=== PATIENT | male | born 1965 | race Caucasian/White ===

== ENCOUNTER 2018-03-26 18:43 | Inpatient (IN) | payer OTHER ==
[~2018-03-26] VITALS: Ht 177.8 cm; Wt 84.9 kg
[~2018-03-26 18:43] MED LIST: ADDERALL 20 MG20 MG; ADDERALL 20 MG20 MG PO; DIAZEPAM10 MG; DITROPAN XL5 MG PO; FOLIC ACID1 MG PO; HUMIRA40 MG/0.8 SQ; LEVAQUIN500 MG PO; METHOTREXATE 1 G1 GM INJ; METHOTREXATE2.5 MG; METOPROLOL TART50 MG PO; MIRALAX17 GM PO; TEMAZEPAM15 MG PO; TEMAZEPAM30 MG; TYLENOL WITH C1 EACH PO; VALIUM10 MG PO; VICODIN ES 7.51 EACH PO; VIVANCE PO; VYVANSE60 MG PO
--- NOTE | 2018-03-26 20:11 | Diagnostic Imaging Report ---
EXAM: CT Abdomen and Pelvis WITH contrast INDICATION: Left flank pain COMPARISON: 05/20/2016 TECHNIQUE: Abdomen and pelvis were scanned utilizing a multidetector helical scanner from the lung base to the pubic symphysis after administration of IV contrast. Coronal and sagittal reformations were obtained. Routine protocol is performed. IV CONTRAST: None. ORAL CONTRAST: Water RADIATION DOSE: Total DLP: 455.72 mGy*cm Estimated effective dose: (DLP x 0.015 x size factor) mSv COMPLICATIONS: None FINDINGS: LINES and TUBES: None. LOWER THORAX: Unremarkable HEPATOBILIARY: No focal hepatic lesions. No biliary ductal dilation. GALLBLADDER: No radio-opaque stones or sludge. No wall thickening. SPLEEN: No splenomegaly. PANCREAS: No focal masses or ductal dilatation. ADRENALS: No adrenal nodules KIDNEYS/URETERS: There is a 5 mm stone in the left proximal ureter with mild left hydronephrosis and hydroureter. Left perinephric stranding may be due to obstruction. Multiple additional nonobstructing stones are seen in both kidneys measuring up to about 6 mm. No stones in the right ureter. No cystic or solid mass lesions. GI TRACT: No abnormal distention, wall thickening, or evidence of bowel obstruction. Postsurgical changes in the distal rectum. Appendix is normal. PELVIC ORGANS/BLADDER: Unremarkable. LYMPH NODES: No lymphadenopathy. VESSELS: There is mild atherosclerotic disease in the aorta and major arterial branches. PERITONEUM / RETROPERITONEUM: No free air or fluid. BONES: Unremarkable. SOFT TISSUES: Unremarkable. IMPRESSION: 5 mm stone in the left proximal ureter with mild left hydronephrosis and hydroureter. Blake Anthony MD Signed by: Dr. Blake Anthony M.D. on 03/26/2018 8:07 PM
[2018-03-26] MEDS ORDERED: KETOROLAC TROMETHAMINE 30 MG/ML VIAL IV STA (21:40)
[2018-03-26] MEDS ORDERED: HYDROMORPHONE 1MG/1ML INJ IV STA (21:43)
[2018-03-26] MEDS ORDERED: ONDANSETRON HCL 4 MG ORAL DISINTEGRATING TAB PO ONE ×2 (21:45→22:00)
[2018-03-26 22:00] LABS: BASOPHILS % 0.4 % (0.0-1.0); EOSINOPHILS # (AUTO) 0.1 (0.0-0.4); EOSINOPHILS % 0.6 % (0.0-6.0); HEMATOCRIT 44.2 % (38.2-49.6); HEMOGLOBIN 15.4 g/dL (14.0-18.0); LYMPHOCYTES # (AUTO) 1.9 (1.0-3.2); LYMPHOCYTES % 18.8 % (18.0-39.1); MEAN CORPUSCULAR HEMOGLOBIN 32.9 pg (28-32); MEAN CORPUSCULAR HGB CONC 34.8 g/dL (31-35); MEAN CORPUSCULAR VOLUME 94.4 fL (81-99); MONOCYTES # (AUTO) 0.8 (0.2-0.8); MONOCYTES % 8.2 % (4.4-11.3); NEUTROPHILS # (AUTO) 7.2 (2.1-6.9); NEUTROPHILS % 71.4 % (38.7-80.0); PLATELET COUNT 217 x10e3/uL (140-360); RED BLOOD COUNT 4.68 x10e6/uL (4.3-5.7); RED CELL DISTRIBUTION WIDTH 13.1 % (11.7-14.4)
[2018-03-26] MEDS ORDERED: KETOROLAC TROMETHAMINE 30 MG/ML VIAL IV ONE (22:00)
[2018-03-26] MEDS ORDERED: HYDROMORPHONE 2MG/ML INJ IV ONE (22:00)
[2018-03-26 22:19] LABS: ALBUMIN 4.1 g/dL (3.5-5.0); ALBUMIN/GLOBULIN RATIO 1.5 (0.8-2.0); ANION GAP 14.6 mmol/L (8-16); CALCIUM 9.1 mg/dL (8.4-10.2); CREATININE, SERUM 1.63 mg/dL (0.72-1.25); POTASSIUM 4.6 mmol/L (3.5-5.1)
[2018-03-26] MEDS ORDERED: CEFTRIAXONE SOD 1 GM VIAL IV STA (22:57)
[2018-03-26] MEDS ORDERED: HYDROMORPHONE 1MG/1ML INJ IV PRN (23:00)
[2018-03-26] MEDS: CEFTRIAXONE SOD 1 GM VIAL IV SCH (23:22)
--- OUTSIDE RECORDS SUMMARY | 2018-03-26 23:34 | XMS REPORT ---
Author [facility] Address Unknown Phone Unavailable Care Team Providers Care [employer] Opt[employer] Technician Name Role Phone VAHID CHRIS Unavailable Unavailable Problems This patient has no known problems. Allergies, Adverse Reactions, Alerts This patient has no known allergies or adverse reactions. Medications This patient has no known medications. Results Test Description Test Time Test Comments Text Results Atomic Results Result Comments CT ABDOMEN/PELVIS WO [place] [address] Patient Name: BONIFACIO GREEN MR #: [id number] : 1965 Age/Sex: 52/M Req #: [id number] Adm Physician: Ordered by: BRYANNA GREER MD Report #: [id number] Location: ER Room/Bed: ___ Procedure: [id number] CT/CT ABDOMEN/PELVIS WO Exam Date: 03/26/18 Exam Time: 1919 REPORT STATUS: Signed EXAM: CT Abdomen and Pelvis WITH contrast INDICATION: Left flank pain COMPARISON: TECHNIQUE: Abdomen and pelvis were scanned utilizing a multidetector helical scanner from the lung base to the pubic symphysis after administration of IV contrast. Coronal and sagittal reformations were obtained. Routine protocol is performed. IV CONTRAST: None. ORAL CONTRAST: Water RADIATION DOSE: Total DLP: 455.72 mGy*cm Estimated effective dose: (DLP x 0.015 x size factor) mSv COMPLICATIONS: None FINDINGS: LINES and TUBES: None. LOWER THORAX: Unremarkable HEPATOBILIARY: No focal hepatic lesions. No biliary ductal dilation. GALLBLADDER: No radio-opaque stones or sludge. No wall thickening. SPLEEN: No splenomegaly. PANCREAS: No focal masses or ductal dilatation. ADRENALS: No adrenal nodules KIDNEYS/URETERS: There is a 5 mm stone in the left proximal ureter with mild left hydronephrosis and hydroureter. Left perinephric stranding may be due to obstruction. Multiple additional nonobstructing stones are seen in both kidneys measuring up to about 6 mm. No stones in the right ureter. No cystic or solid mass lesions. GI TRACT: No abnormal distention, wall thickening, or evidence of bowel obstruction. Postsurgical changes in the distal rectum. Appendix is normal. PELVIC ORGANS/BLADDER: Unremarkable. LYMPH NODES: No lymphadenopathy. VESSELS : There is mild atherosclerotic disease in the aorta and major arterial branches. PERITONEUM / RETROPERITONEUM: No free air or fluid. BONES: Unremarkable. SOFT TISSUES: Unremarkable. IMPRESSION: 5 mm stone in the left proximal ureter with mild left hydronephrosis and hydroureter. Lindsay Anthony MD Signed by: Dr. Lindsay Anthony M.D. on 03/26/2018 8:07 PM Dictated By: LINDSAY ANTHONY MD 06 Transcribed By: JANETTE on 03/26/182006 COPY TO: BRYANNA GREER MD
[2018-03-27] VITALS (9 sets, daily range): BP systolic 98–137; BP diastolic 55–80
[2018-03-27] MEDS ORDERED: CYMBALTA30 MG PO (00:45)
[2018-03-27] MEDS ORDERED: LYRICA75 MG PO (00:45)
[2018-03-27] MEDS ORDERED: ADDERALL XR 3030 MG PO (00:45)
[2018-03-27] MEDS: SODIUM CHLORIDE 0.9% 1000ML 1,000 ML IV SCH ×4 (00:46→14:57)
[2018-03-27 01:42] LABS: CLARITY,URINE HAZY (CLEAR); COLOR,URINE YELLOW (YELLOW)
[2018-03-27 01:43] LABS: BILIRUBIN,URINE NEGATIVE (NEGATIVE); KETONES,URINE NEGATIVE (NEGATIVE); LEUKOCYTE ESTERASE ,URINE NEGATIVE (NEGATIVE); NITRITE,URINE NEGATIVE (NEGATIVE); PROTEIN,URINE DIPSTICK TRACE (NEGATIVE); URINE UROBILINOGEN 0.2 mg/dL (0.2 - 1)
[2018-03-27 01:53] LABS: BACTERIA,URINE RARE /HPF; EPITHELIAL CELLS,URINE RARE /LPF; WBC,URINE (MAN) 0-5 /HPF (0-5)
[2018-03-27 01:54] LABS: MUCUS,URINE MANY (RARE)
[2018-03-27] MEDS: HYDROMORPHONE 2MG/ML INJ IV PRN ×5 (06:12→21:52)
[2018-03-27 06:57] LABS: BASOPHILS % 0.4 % (0.0-1.0); EOSINOPHILS % 0.4 % (0.0-6.0); HEMATOCRIT 40.5 % (38.2-49.6); HEMOGLOBIN 13.8 g/dL (14.0-18.0); LYMPHOCYTES # (AUTO) 1.5 (1.0-3.2); LYMPHOCYTES % 17.6 % (18.0-39.1); MEAN CORPUSCULAR HEMOGLOBIN 32.6 pg (28-32); MEAN CORPUSCULAR HGB CONC 34.1 g/dL (31-35); MEAN CORPUSCULAR VOLUME 95.7 fL (81-99); MONOCYTES # (AUTO) 0.7 (0.2-0.8); MONOCYTES % 8.7 % (4.4-11.3); NEUTROPHILS # (AUTO) 6.1 (2.1-6.9); NEUTROPHILS % 72.4 % (38.7-80.0); PLATELET COUNT 185 x10e3/uL (140-360); RED BLOOD COUNT 4.23 x10e6/uL (4.3-5.7); RED CELL DISTRIBUTION WIDTH 13.1 % (11.7-14.4)
[2018-03-27 07:20] LABS: ALBUMIN 3.5 g/dL (3.5-5.0); ALBUMIN/GLOBULIN RATIO 1.5 (0.8-2.0); CALCIUM 8.4 mg/dL (8.4-10.2); CREATININE, SERUM 1.74 mg/dL (0.72-1.25)
[2018-03-27 07:44] LABS: ANION GAP 10.6 mmol/L (8-16); POTASSIUM 3.6 mmol/L (3.5-5.1)
[2018-03-27] MEDS ORDERED: DULOXETINE HCL 30 MG DELAYED RELEASE PO SCH (09:00)
[2018-03-27] MEDS ORDERED: PREGABALIN 75 MG CAP PO SCH (09:00)
[2018-03-27] MEDS ORDERED: METOPROLOL TARTRATE 50 MG TAB PO SCH (09:00)
[2018-03-27] MEDS: METOPROLOL TARTRATE 50 MG TAB PO SCH ×2 (09:00→21:46)
[2018-03-27] MEDS: ONDANSETRON HCL 4 MG ORAL DISINTEGRATING TAB PO PRN ×2 (09:50→14:25)
[2018-03-27] MEDS: PREGABALIN 75 MG CAP PO SCH ×2 (10:00→21:46)
[2018-03-27] MEDS: DULOXETINE HCL 30 MG DELAYED RELEASE PO SCH ×2 (10:00→21:46)
[2018-03-27] MEDS ORDERED: TAMSULOSIN HCL 0.4 MG CAP ONE (12:36)
[2018-03-27] MEDS: TAMSULOSIN HCL 0.4 MG CAP PO SCH (12:37)
--- NOTE | 2018-03-27 13:13 | History and Physical ---
CHIEF COMPLAINT: Hftuy-cqm-wtor-old gentleman, comes in with flank pain. HISTORY OF PRESENTING ILLNESS: This is Mr. Crum with a history of kidney stones, history of narcolepsy with cataplexy, who was in usual state of health when the patient started to have left lower quadrant pain in the abdomen, constant, and also 10/10 in intensity, and did have some symptoms like this before with kidney stones, came into the emergency room and was found to have nephrolithiasis with hydronephrosis. Patient admitted for the same. PAST MEDICAL HISTORY: History of narcolepsy, history of chronic low back pain, history of dysautonomia, and also history of kidney stones in the past. SURGICAL HISTORY: History of carpal tunnel release, history of hemorrhoidectomy, history of sinus surgery, history of tonsillectomy, and history of renal stents for urethral stones. MEDICATIONS: The patient takes Tylenol No. 3. He takes Adderall 30 mg daily, Valium 10 mg p.r.n., duloxetine 30 mg, metoprolol 50, Lyrica 75 mg twice a day, and temazepam 15 mg at nighttime. SOCIAL HISTORY: No ETOH, no IV drug abuse. ALLERGIES: SEE NURSES' NOTE. REVIEW OF SYSTEMS: Negative for chest pain. No shortness of breath. No nausea, vomiting, diarrhea, constipation. No rectal bleeding. No hematochezia, no hematemesis. Positive for history of cataplexy and narcolepsy. PHYSICAL EXAMINATION: GENERAL: Patient is alert and oriented x3, in no pain at this time. VITAL SIGNS: Temperature 96.6, pulse of 59, blood pressure is 137/80, and O2 100% on room air. HEENT: Normocephalic, atraumatic. There is no icterus present. CVS: S1 and S2 normal. Regular rate and rhythm. ABDOMEN: Nontender, nondistended. Slight amount of mild pain in the left CVA. EXTREMITIES: No clubbing, no cyanosis, no edema. LABORATORY VALUES: White count was 10.10, hemoglobin of 15, and hematocrit 44.2, 7.2 neutrophils. Chemistry: Sodium 137, potassium 4.6, creatinine was 1.6, GFR was 45. Urine showed RBCs and also mucus, otherwise negative. IMAGING STUDIES: Abdominal CT showed 5-mm stone in the left proximal ureter with left hydronephrosis and hydroureter. ASSESSMENT: Nephrolithiasis with hydronephrosis. PLAN: To have urological consultation with Dr. Longoria and Dr. Niño, will be seen today. Pain control. Patient has been started on hydromorphone 1 mg q.3h. Also on fluid 125 mL an hour. Rocephin has been given and for nausea Zofran has been started. Will continue to monitor the patient. Will restart his home medications. Further recommendations on clinical course. Will continue to monitor the patient along with consultants and also keep an eye on his acute renal injury and keep hydrating . Job#: [id number]
--- NOTE | 2018-03-27 19:46 | Diagnostic Imaging Report ---
EXAM: ABDOMEN-1VIEW (KUB), supine INDICATION: Follow-up stone COMPARISON: None FINDINGS: LINES/TUBES: None BOWEL PATTERN: No evidence for obstruction. SOFT TISSUES: No abnormal calcifications. LUNG BASES: Not included BONES: No acute findings. IMPRESSION: Normal abdominal x-ray. The punctate stones seen in both kidneys by CT are not visible by x-ray. Signed by: Dr. Nemo Olsen M.D. on 03/27/2018 7:42 PM
[2018-03-27] MEDS: TEMAZEPAM 15 MG CAP PO SCH (21:46)
[2018-03-27] MEDS: CEFTRIAXONE SOD 1 GM VIAL IV SCH (23:52)
[2018-03-28] MEDS: HYDROMORPHONE 2MG/ML INJ IV PRN ×2 (01:31→10:45)
[2018-03-28 04:00] VITALS: BP 113/68
[2018-03-28] MEDS ORDERED: KETOROLAC TROMETHAMINE 30 MG/ML VIAL IV PRN (06:00)
[2018-03-28] MEDS: SODIUM CHLORIDE 0.9% 1000ML 1,000 ML IV SCH ×2 (06:34→14:01)
[2018-03-28 07:03] LABS: BASOPHILS % 0.2 % (0.0-1.0); EOSINOPHILS # (AUTO) 0.1 (0.0-0.4); EOSINOPHILS % 0.7 % (0.0-6.0); HEMATOCRIT 42.9 % (38.2-49.6); HEMOGLOBIN 14.1 g/dL (14.0-18.0); LYMPHOCYTES # (AUTO) 1.2 (1.0-3.2); LYMPHOCYTES % 13.9 % (18.0-39.1); MEAN CORPUSCULAR HEMOGLOBIN 32.5 pg (28-32); MEAN CORPUSCULAR HGB CONC 32.9 g/dL (31-35); MEAN CORPUSCULAR VOLUME 98.8 fL (81-99); MONOCYTES # (AUTO) 0.7 (0.2-0.8); MONOCYTES % 7.8 % (4.4-11.3); NEUTROPHILS # (AUTO) 6.8 (2.1-6.9); NEUTROPHILS % 76.8 % (38.7-80.0); PLATELET COUNT 159 x10e3/uL (140-360); RED BLOOD COUNT 4.34 x10e6/uL (4.3-5.7)
[2018-03-28] MEDS ORDERED: KETOROLAC TROMETHAMINE 30 MG/ML VIAL ONE (07:07)
[2018-03-28] MEDS: KETOROLAC TROMETHAMINE 30 MG/ML VIAL IV PRN ×2 (07:11→19:45)
[2018-03-28] MEDS ORDERED: PANTOPRAZOLE SOD 40 MG TABEC PO SCH ×2 (07:30→16:30)
[2018-03-28 07:33] LABS: ANION GAP 11.9 mmol/L (8-16); CALCIUM 8.3 mg/dL (8.4-10.2); CREATININE, SERUM 1.74 mg/dL (0.72-1.25); POTASSIUM 3.9 mmol/L (3.5-5.1)
[2018-03-28 07:39] VITALS: BP 117/62
[2018-03-28] MEDS: PREGABALIN 75 MG CAP PO SCH ×2 (08:45→20:35)
[2018-03-28] MEDS: DULOXETINE HCL 30 MG DELAYED RELEASE PO SCH ×2 (08:45→20:35)
[2018-03-28] MEDS: DOCUSATE SODIUM 100 MG CAP PO SCH ×2 (08:45→20:35)
[2018-03-28] MEDS: METOPROLOL TARTRATE 50 MG TAB PO SCH ×2 (08:45→20:35)
[2018-03-28 08:59] VITALS: BP 117/62
[2018-03-28] MEDS ORDERED: FLUTICASONE PROPIONATE NASAL SPRAY NS SCH (09:00)
[2018-03-28 11:56] VITALS: BP 96/56
[2018-03-28] MEDS: TAMSULOSIN HCL 0.4 MG CAP PO SCH (12:30)
[2018-03-28 20:00] VITALS: BP 103/55
[2018-03-28 20:35] VITALS: BP 103/55
[2018-03-28] MEDS: TEMAZEPAM 15 MG CAP PO SCH (21:00)
[2018-03-29] VITALS: BP 118/67
[2018-03-29] MEDS: CEFTRIAXONE SOD 1 GM VIAL IV SCH (00:03)
[2018-03-29] MEDS: SODIUM CHLORIDE 0.9% 1000ML 1,000 ML IV SCH (00:03)
[2018-03-29 04:00] VITALS: BP 120/76
== END 2018-03-29 06:42 | disposition home or self-care (01) | DRG 694 ==
LOC: ER 18:43 → ERHOLD 23:32 → MED/SURG 23:47
PROVIDERS: ADMIT Internal Medicine; ATTEND Internal Medicine
DX: N13.2 Hydronephrosis with renal and ureteral calculous obstruction (principal); R31.9 Hematuria, unspecified; I10 Essential (primary) hypertension; G47.411 Narcolepsy with cataplexy
CPT/HCPCS: 36415; 74018; 74176; 80048; 80053; 81001; 85025; 87086; 87186; 96361; 99284; J0696; J1885; J7030

== ENCOUNTER → 2018-04-29 | Outpatient (CLI) | payer OTHER ==
[~2018-04-29] MED LIST changes: +ADDERALL XR 3030 MG PO; +CYMBALTA30 MG PO; +LYRICA75 MG PO; +MAGNESIUM PO; +NUVIGIL250 MG PO; +PROBIOTIC & AC1 EACH PO; +XYREM500 MG/1 M PO
--- NOTE | 2018-04-29 09:47 | Diagnostic Imaging Report ---
PROCEDURE:X-RAY ABDOMEN - KUB COMPARISON:03/27/2018, CT abdomen and pelvis without contrast 03/26/2018. INDICATIONS:KIDNEY STONES FINDINGS: Bowel gas pattern shows no dilated, air-filled loops of bowel. 3-4 mm calcification is identified projecting over the medial upper pole of the right renal shadow. Additional small calculi identified within both kidneys on the comparison CT are poorly visualized by plain radiography. Regional skeletal structures are intact. Lung bases are clear. CONCLUSION: 3-4 mm right upper pole renal calculus. Additional small bilateral renal calculi described on the comparison CT 03/26/2018 are poorly visualized by plain radiography. Dictated by: Rajan Sales M.D. on 04/29/2018 at 9:52 Electronically approved by: Rajan Sales M.D. on 04/29/2018 at 9:52
== END ==
LOC: RAD 09:18
PROVIDERS: ATTEND Urology
DX: N20.0 Calculus of kidney (principal)
CPT/HCPCS: 74018

== ENCOUNTER → 2018-05-12 | Day surgery (SDC) | payer OTHER ==
[~2018-05-12] MED LIST changes: +BELLADONNA/OPIUM 30 MG SUPP RC ONE; +CEFTRIAXONE SOD 1 GM VIAL ONE; +DEXAMETHASONE SOD PHOS INJ 4 MG/ML VIAL ONE; +FENTANYL CITRATE/PF 100MCG/2 ML INJ ONE; +IOPAMIDOL 300MG/ML 50ML INFUS..BTL IV ONE; +LIDOCAINE HCL 2% LOCAL INJ 5 ML SDV VIAL INJ ONE; +MIDAZOLAM HCL 2 MG/2 ML VIAL ONE; +ONDANSETRON HCL INJ 2 MG/ML VIAL ONE; +PROPOFOL IV EMULSION 10 MG/ML 20 ML VIAL ONE; +SEVOFLURANE INHAL SOLN 250 ML PEN BTL ONE
--- NOTE | 2018-05-12 08:07 | Diagnostic Imaging Report ---
PROCEDURE:X-RAY ABDOMEN - KUB COMPARISON:04/29/2018 INDICATIONS:PRE OP KUB FINDINGS: No interval change in 3-4 mm calculus projecting over the upper pole of the right kidney. No calculi project over the expected ureteral courses. Bowel gas pattern remains nonobstructive. Regional skeletal structures are intact. CONCLUSION: Unchanged 3-4 mm right upper pole renal calculus. Dictated by: Rajan Sales M.D. on 05/12/2018 at 8:11 Electronically approved by: Rajan Sales M.D. on 05/12/2018 at 8:11
--- NOTE | 2018-07-01 00:11 | Operative Report ---
DATE OF PROCEDURE: May 12, 2018 PREOPERATIVE DIAGNOSES 1. Left nephrolithiasis. 2. Renal colic. POSTOPERATIVE DIAGNOSES 1. Left nephrolithiasis. 2. Renal colic. OPERATIONS PERFORMED 1. Staged left-sided extracorporeal shock wave lithotripsy (separate procedure performed for the nephrolithiasis). 2. Cystourethroscopy with bilateral ureteral catheterization and retrograde ureteropyelography (separate procedure performed to evaluate the patient's prior renal colic). 3. Interpretation of retrograde ureteropyelography. 4. Supervision of fluoroscopy. No radiologist present. ANESTHESIA: General. COMPLICATIONS: None. CLINICAL SUMMARY: Godfrey Crum is a 52-year-old man who passed the left ureteral stone. He has a history of left hydronephrosis. He also has bilateral nephrolithiasis. The patient is brought for staged ESWL. He is aware of the risks of bleeding, infection, injury to adjacent structures, need for additional procedures and elected to proceed. OPERATIVE PROCEDURE IN DETAIL: Informed consent was verified. Godfrey Crum is properly identified, taken to the operating room, placed on the lithotripsy table in supine position. Anesthesia was uneventfully begun. The patient's left upper caliceal, middle caliceal and lower caliceal stones were each identified with biplanar fluoroscopy and a total of 3000 shocks were delivered, distributing them among the stones. Excellent fragmentation was noted. The patient was then carefully and gently repositioned in the dorsal lithotomy position with all pressure points well padded. His genitalia were prepared and draped in usual sterile fashion. A 22.5-Indonesian cystoscope sheath with the visual obturator in place was atraumatically inserted into the patient's urethra and guided down the unremarkable urethra through the sphincteric region. We passed through the sphincteric region, entered through the prostate bed which was significant for early BPH. Panendoscopy of the urinary bladder revealed grade 1 to 2 trabeculations; but no tumors, no stones and no diverticula. Normally positioned and configured ureteral orifices were identified. The ureteral catheter was used to cannulate each ureter and retrograde ureteropyelograms were performed. INTERPRETATION OF RETROGRADE URETEROPYELOGRAPHY: On the left hand side, there were filling defects corresponding to the regions where we performed lithotripsy. There was no hydronephrosis and unobstructed drainage was observed. On the right hand side, there was no hydronephrosis. Unobstructed drainage was observed. There was a right stone that was seen and localized, but it was not treated. The patient's previous left hydronephrosis has resolved and his previous left ureteral stone was no longer there. The patient's bladder was then drained. The cystoscope was withdrawn. A digital rectal examination revealed a 30-g prostate that was smooth, non-fluctuant, without any nodules. The patient was uneventfully reversed from anesthesia and taken to the recovery room in stable condition. Explicit postoperative instructions were given. Will plan on returning the patient to the operating room for right ESWL in approximately 1 month. Job#: [id number] GENE
== END | disposition home or self-care (01) ==
LOC: OR 06:59
PROVIDERS: ATTEND Urology
DX: N20.0 Calculus of kidney (principal); N40.0 Benign prostatic hyperplasia without lower urinary tract symptoms; N32.89 Other specified disorders of bladder; K21.9 Gastro-esophageal reflux disease without esophagitis; G47.33 Obstructive sleep apnea (adult) (pediatric); G47.411 Narcolepsy with cataplexy; G90.1 Familial dysautonomia [Riley-Day]; Z88.2 Allergy status to sulfonamides; Z88.8 Allergy status to other drugs, medicaments and biological substances; Z01.810 Encounter for preprocedural cardiovascular examination; Z87.891 Personal history of nicotine dependence
CPT/HCPCS: 50590; 74018; 93005; C1758; J0696; J1100; J2001; J2250; J2405; Q9967

== ENCOUNTER → 2018-06-11 | Day surgery (SDC) | payer OTHER ==
[~2018-06-11] MED LIST changes: -BELLADONNA/OPIUM 30 MG SUPP RC ONE; +DESFLURANE 240 ML BTL INH ONE; -IOPAMIDOL 300MG/ML 50ML INFUS..BTL IV ONE
--- NOTE | 2018-06-11 09:11 | Diagnostic Imaging Report ---
PROCEDURE:X-RAY ABDOMEN - KUB COMPARISON:KUB 05/11/18. INDICATIONS:PREOPERATIVE XRAY FOR ESWL FINDINGS: Again noted is a 3-4 mm calculus projecting over the upper pole of the right kidney. No evidence of calcification overlying the ureters. Non-obstructive bowel gas pattern. No acute bony findings. CONCLUSION: Unchanged 3-4 mm right upper pole renal calculus. Dictated by: SUNNY HANLEY M.D. on 06/11/2018 at 7:28 Electronically approved by: SUNNY HANLEY M.D. on 06/11/2018 at 7:28
--- NOTE | 2018-08-03 13:46 | Operative Report ---
DATE OF PROCEDURE: June 11, 2018 PREOPERATIVE DIAGNOSIS: Right nephrolithiasis. POSTOPERATIVE DIAGNOSIS: Right nephrolithiasis. PROCEDURES PERFORMED: 1. Staged right-sided extracorporeal shockwave lithotripsy. 2. Supervision of fluoroscopy. No radiologist present. ANESTHESIA: General. COMPLICATIONS: None. CLINICAL SUMMARY: Godfrey Crum is a 52-year-old man with nephrolithiasis. He is brought for treatment. He is aware of the risks of bleeding, infection, injury to adjacent structures, need for additional procedures and elected to proceed. OPERATIVE PROCEDURE IN DETAIL: Informed consent was verified. Godfrey Crum was properly identified, taken to the operating room and placed on the lithotripsy table in supine position. Anesthesia was uneventfully begun. The patient's right midcaliceal 7 mm stone was localized with biplanar fluoroscopy. A total of 3000 shocks were delivered with some degree of fragmentation noted. The patient was then uneventfully reversed from anesthesia and taken to the recovery room in stable condition. There were no complications of the procedure, and he tolerated the procedure well. Plans will be to follow the patient up on an indefinite basis. Additional treatment may be warranted. Job#: [id number] EV
--- OUTSIDE RECORDS SUMMARY | 2018-08-05 00:42 | XMS REPORT | CCD ---
Author Author [facility] Organization [facility] Address Unknown Phone Unavailable Care Team Providers Care Ammonia Box Operator Name Role Phone Dio Escalante CP Allergies, Adverse Reactions, Alerts Substance Reaction Status Haldol Active Problem List Condition Effective Dates Status Arthritis Resolved Kidney stone Resolved Sleep apnea Resolved Medications Medication Instructions Start Date End Date Status ondansetron 4 mg, 2 mL, Route: IVP, Drug form: 05/26/2013 05/26/2013 Completed INJ, ONCE, Dosing Weight 72.273, kg, Priority: STAT, Start date: 05/26/13 20:55:00, Stop date: 05/26/13 20:55:00 hydromorphone 1 mg, 1 mL, Route: IV, Drug form: 05/26/2013 05/26/2013 Completed SOLN, ONCE, Dosing Weight 72.273, kg, Start date: 05/26/13 20:55:00, Stop date: 05/26/13 20:55:00 Flexeril 10 mg oral See Instructions, PRN, 1 tab PO 05/26/2013 Ordered tablet TID, 21 tab, for spasm, Substitution Allowed, TAB 1 tab PO TID Ultracet oral tablet 1 tab, PO, Q4H, PRN, 20 tab, for 05/26/2013 Ordered pain, Substitution Allowed, Maintenance, TAB Vital Signs Most recent to oldest [Reference Range]: 1 Height 175.26 cm (05/26/2013 20:24:00) Weight 72.273 kg (05/26/2013 20:24:00)
--- OUTSIDE RECORDS SUMMARY | 2018-08-05 00:42 | XMS REPORT | Summary of Care ---
Author Author [facility] [place] Organization [facility] [place] Address Unknown Phone Unavailable Encounter HQ Encntr_alias(FIN) [id number] Date(s): 02/16/18 - 02/16/18 [facility] [place] [address] [place] [address] [phone] Discharge Disposition: Home or Self Care Attending Physician: ThursdayKandace MD Vital Signs No data available for this section Problem List Condition Effective Dates Status Health Status Informant Arthritis(Confirmed) Resolved Kidney Resolved stone(Confirmed) Sleep Resolved apnea(Confirmed) Allergies, Adverse Reactions, Alerts Substance Reaction Severity Status Haldol Active Medications No data available for this section Results No data available for this section Immunizations No data available for this section Procedures No data available for this section Social History Social History Type Response Assessment and Plan No data available for this section
== END | disposition home or self-care (01) ==
LOC: OR 05:56
PROVIDERS: ATTEND Urology
DX: N20.0 Calculus of kidney (principal); G47.30 Sleep apnea, unspecified; K21.9 Gastro-esophageal reflux disease without esophagitis; G90.1 Familial dysautonomia [Riley-Day]; F41.9 Anxiety disorder, unspecified; Z88.8 Allergy status to other drugs, medicaments and biological substances
CPT/HCPCS: 50590; 74018; J0696; J1100; J2001; J2250; J2405

== ENCOUNTER → 2018-07-08 | Outpatient (CLI) | payer OTHER ==
[~2018-07-08] MED LIST changes: -CEFTRIAXONE SOD 1 GM VIAL ONE; -DESFLURANE 240 ML BTL INH ONE; -DEXAMETHASONE SOD PHOS INJ 4 MG/ML VIAL ONE; -FENTANYL CITRATE/PF 100MCG/2 ML INJ ONE; -LIDOCAINE HCL 2% LOCAL INJ 5 ML SDV VIAL INJ ONE; -MIDAZOLAM HCL 2 MG/2 ML VIAL ONE; -ONDANSETRON HCL INJ 2 MG/ML VIAL ONE; -PROPOFOL IV EMULSION 10 MG/ML 20 ML VIAL ONE; -SEVOFLURANE INHAL SOLN 250 ML PEN BTL ONE
--- NOTE | 2018-07-08 12:03 | Diagnostic Imaging Report ---
EXAM: ABDOMEN-2 VIEWS (KUB), supine INDICATION: Renal calculus COMPARISON: KUB 03/27/[address] Abdomen 03/26/18. FINDINGS: Bowel contents obscures visualization of both kidneys. There are 3 mm and 4 mm calcifications which project over the right kidney and a 6 mm calcification which projects over the left mid kidney. Non-obstructive bowel gas pattern. No free intraperitoneal air. No acute bony findings. Degenerative changes in the lower lumbar spine. IMPRESSION: Right renal calcifications measuring 3-4 mm and and left renal calcification measuring 6 mm may represent stones, although are obscured by overlying bowel contents. Signed by: Dr. Dylon Barrios MD on 07/08/2018 12:00 PM
== END ==
LOC: RAD 10:31
PROVIDERS: ATTEND Urology
DX: N20.0 Calculus of kidney (principal)
CPT/HCPCS: 74018

== ENCOUNTER → 2018-10-07 | Outpatient (CLI) | payer OTHER ==
[~2018-10-07] MED LIST changes: +BELLADONNA/OPIUM 60 MG SUPP PR ONE; +IOPAMIDOL 610MG/1ML 300 MG/ML VIAL IV ONE; +LYRICA100 MG PO
--- NOTE | 2018-10-07 17:26 | Diagnostic Imaging Report ---
Lumbar Spine Radiographs: 5 views HISTORY: Pain COMPARISON: None available. DISCUSSION: There are five non-rib bearing lumbar vertebral bodies. The alignment of the spine is within normal limits. No displaced fracture or compression deformity is identified. The disc spaces are well maintained. Mild bilateral facet arthropathy bilaterally L4-L5 and L5-S1. Punctate calcific density projected on the right flank medially suggestive of renal calculus. IMPRESSION: Mild bilateral facet arthropathy bilaterally L4-L5 and L5-S1. Signed by: Dr. Meron Taylor M.D. on 10/07/2018 5:23 PM
== END ==
LOC: RAD 15:52
PROVIDERS: ATTEND Internal Medicine
DX: M54.31 Sciatica, right side (principal)
CPT/HCPCS: 72110

== ENCOUNTER → 2018-10-08 | Day surgery (SDC) | payer OTHER ==
--- NOTE | 2018-10-07 17:23 | Diagnostic Imaging Report ---
EXAMINATION: CHEST 2 VIEWS INDICATION: Pre-operative. COMPARISON: 07/08/2016. FINDINGS: TUBES and LINES: None. LUNGS: Lungs are well inflated. Lungs are clear. There is no evidence of pneumonia or pulmonary edema. PLEURA: No pleural effusion or pneumothorax. Bicycle pleural scarring. HEART AND MEDIASTINUM: The cardiomediastinal silhouette is unremarkable. BONES AND SOFT TISSUES: No acute osseous lesion. Soft tissues are unremarkable. UPPER ABDOMEN: No free air under the diaphragm. IMPRESSION: No acute thoracic abnormality. Signed by: Dr. Meron Taylor M.D. on 10/07/2018 5:20 PM
[~2018-10-08] MED LIST changes: -BELLADONNA/OPIUM 60 MG SUPP PR ONE; +CEFTRIAXONE SOD 1 GM VIAL ONE; +DEXAMETHASONE SOD PHOS INJ 4 MG/ML VIAL ONE; +FENTANYL CITRATE/PF 100MCG/2 ML INJ ONE; +GLYCOPYRROLATE INJ 1MG/ 5 ML SYR ONE; -IOPAMIDOL 610MG/1ML 300 MG/ML VIAL IV ONE; +KETOROLAC TROMETHAMINE 30 MG/ML VIAL ONE; +ONDANSETRON HCL INJ 2 MG/ML VIAL ONE; +PROPOFOL IV EMULSION 10 MG/ML 20 ML VIAL ONE; +SEVOFLURANE INHAL SOLN 250 ML PEN BTL ONE
--- OUTSIDE RECORDS SUMMARY | 2018-10-08 10:05 | XMS REPORT | Continuity of Care Document ---
Author Author [facility] Address Unknown Phone Unavailable Problems Problem Status Onset Date Classification Date Reported Comments Source G31.89 - OTHER SPECIFIED DEGENERATIVE D Active 02/15/2018 [facility] [facility] BACK PAIN Active 05/26/2013 [facility] Arthritis Resolved Problem 05/28/2013 [facility] Kidney stone Resolved Problem 05/28/2013 [facility] Sleep apnea Resolved Problem 05/28/2013 [facility] Arthritis Resolved Problem 02/19/2018 [facility] [place] Kidney stone Resolved Problem 02/19/2018 [facility] Sleep apnea Resolved Problem 02/19/2018 [facility] Medications Medication Details Route Status Patient Instructions Ordering Provider Order Date Source Flexeril 10 mg oral tablet See Instructions, PRN, 1 tab PO TID, 21 tab, for spasm, Substitution Allowed, TAB1 tab PO TID Active Aguhar 05/27/2013 [facility] Ultracet oral tablet 1 tab, PO, Q4H, PRN, 20 tab, for pain, Substitution Allowed, Maintenance, TAB PO Active Aguhar 05/27/2013 [facility] ondansetron 4 mg, 2 mL, Route: IVP, Drug form: INJ, ONCE, Dosing Weight 72.273, kg, Priority: STAT, Start date: 05/26/13 20:55:00, Stop date: 05/26/13 20:55:00 IVP No Longer Active [facility] 05/27/2013 [facility] hydromorphone 1 mg, 1 mL, Route: IV, Drug form: SOLN, ONCE, Dosing Weight 72.273, kg, Start date: 05/26/13 20:55:00, Stop date: 05/26/13 20:55:00 IV No Longer Active Agar 05/27/2013 [facility] Allergies, Adverse Reactions, Alerts Substance Category Reaction Severity Reaction type Status Date Reported Comments Source Haldol Assertion Drug allergy Active [facility] Immunizations Immunization Date Given Site Status Last Updated Comments Source Results Order Name Results Value Reference Range Date Interpretation Comments Source Brain w/wo contrast MRI Brain w/wo contrast MRI Brain w/wo contrast MRI 02/16/2018 9:11 AM CDT Clinical Indication: G31.89 Other specified degenerative diseases of nervous system - G31.89 Other specified degenerative diseases of nervous system; Comparison: None TECHNIQUE: Multiplanar MRI of the brain is performed without and with contrast. 18 mL of intravenous gadolinium was given. FINDINGS: BRAIN: No restricted diffusion is identified. The brain parenchyma has normal signal with normal bradshaw-white junction, sulci, and gyri. There is no extra-axial fluid collection or intraparenchymal hemorrhage. Mild linear enhancement is seen in the right frontal lobe middle gyrus. No additional abnormal enhancement. The brainstem is unremarkable. CEREBELLOPONTINE REGIONS, SELLA, AND SKULL: The cerebellopontine angles appear unremarkable. No skull abnormality is seen. The pituitary gland appears unremarkable. VENTRICLES: The ventricles and sulci are normal in size and configuration for age. VISUALIZED VESSELS: Major intracranial flow voids are preserved. ORBITS, VISUALIZED PARANASAL SINUSES/MASTOIDS/CERVICAL SPINE: Paranasal sinuses are clear. The mastoid air cells are clear. No orbital pathology is seen. IMPRESSION: 1. No intracranial hemorrhage, mass, or acute infarct. 2. Small right frontal lobe developmental venous anomaly. 02/16/2018 - - Read by: Olegario Sanders MD Dictated Date/time: 02/16/18 11:35 Electronically Signed by: Olegario Sanders MD 02/16/18 14:43 FINAL REPORT [facility] [place] Spine lumbar 2 or 3 views Spine lumbar 2 or 3 views PROCEDURE: Spine lumbar AP lateral REASON FOR EXAM: See Clinic Indication CLINICAL INDICATION: Pain, Lumbar region COMPARISON: None. FINDINGS: No definite acute fracture or pathologic subluxation. Alignment of the lumbar spine is grossly intact. The pedicles are symmetric. No definite destructive bony process is present. SL: 14 05/26/2013 - - Read by: Zhao Gomez Dictated Date/time: 05/26/13 21:29 Electronically Signed by: Zhao Gomez MD 05/26/13 21:30 FINAL REPORT [facility] Vital Signs Vital Sign Value Date Comments Source Weight 72.273 05/27/2013 [facility] Height 175.26 cm 05/27/2013 [facility] Encounters Location Location Details Encounter Type Encounter Number Reason For Visit Attending Provider ADM Date DC Date Status Source [facility] Emergency [id number] BACK PAIN BIANCA GIMENEZ 05/26/2013 05/26/2013 Active [facility] [place] [facility] [id number] Kandace Thursday02/16/2018 02/17/2018 [facility] Procedures Procedure Code Date Perfomer Comments Source
--- NOTE | 2018-10-08 12:39 | Diagnostic Imaging Report ---
EXAM: ABDOMEN-1VIEW (KUB), supine COMPARISON: CT Abdomen 03/26/18, KUB 07/08/18. FINDINGS: Bowel contents obscures visualization of both kidneys. There is a 3 mm calcification projecting over the right lower kidney and a 5 mm calcification projecting over the left upper kidney. Additional calcifications noted on prior KUB are not well seen on this study. No calcifications are seen overlying the expected location of the ureters. Non-obstructive bowel gas pattern. No free intraperitoneal air. No acute bony findings. Degenerative changes in the lower lumbar spine. IMPRESSION: Bilateral kidneys somewhat obscured by overlying bowel gas. A 3 mm calcification projecting over the right lower kidney and a 5 mm calcification projecting over the left upper kidneys, may represent stones. Additional previously seen renal calcifications are not well visualized on this study. Signed by: Dr. Dylon Barrios MD on 10/08/2018 12:35 PM
[2018-10-08 13:49] LABS: BASOPHILS % 0.3 % (0.0-1.0); EOSINOPHILS % 0.2 % (0.0-6.0); HEMATOCRIT 41.6 % (38.2-49.6); HEMOGLOBIN 14.3 g/dL (14.0-18.0); LYMPHOCYTES # (AUTO) 1.1 (1.0-3.2); LYMPHOCYTES % 11.5 % (18.0-39.1); MEAN CORPUSCULAR HEMOGLOBIN 33.6 pg (28-32); MEAN CORPUSCULAR HGB CONC 34.4 g/dL (31-35); MEAN CORPUSCULAR VOLUME 97.9 fL (81-99); MONOCYTES # (AUTO) 0.4 (0.2-0.8); MONOCYTES % 4.5 % (4.4-11.3); NEUTROPHILS # (AUTO) 7.8 (2.1-6.9); PLATELET COUNT 281 x10e3/uL (140-360); RED BLOOD COUNT 4.25 x10e6/uL (4.3-5.7); RED CELL DISTRIBUTION WIDTH 12.3 % (11.7-14.4)
[2018-10-08 14:00] VITALS: BP 129/94
[2018-10-08 14:12] LABS: ALANINE AMINOTRANSFERASE 14 IU/L (0-55); ALBUMIN 3.8 g/dL (3.5-5.0); ALBUMIN/GLOBULIN RATIO 1.3 (0.8-2.0); ALKALINE PHOSPHATASE 76 IU/L (40-150); ANION GAP 16.3 mmol/L (8-16); BLOOD UREA NITROGEN 13 mg/dL (7-26); BUN/CREATININE RATIO 12 (6-25); CALCIUM 9.2 mg/dL (8.4-10.2); CARBON DIOXIDE 27 mmol/L (22-29); CHLORIDE 102 mmol/L (98-107); CREATININE, SERUM 1.09 mg/dL (0.72-1.25); EST GLOMERULAR FILTRATION RATE > 60 ML/MIN (60-); GLUCOSE 110 mg/dL (74-118); SODIUM 140 mmol/L (136-145)
[2018-10-08 14:14] LABS: POTASSIUM 5.3 mmol/L (3.5-5.1)
--- NOTE | 2018-10-08 19:49 | Operative Report ---
DATE OF PROCEDURE: October 08, 2018 PREOPERATIVE DIAGNOSIS: Bilateral nephrolithiasis. POSTOPERATIVE DIAGNOSIS: Bilateral nephrolithiasis OPERATIONS PERFORMED 1. Staged left-sided extracorporeal shock wave lithotripsy. 2. Supervision of fluoroscopy. No radiologist present. ANESTHESIA: General. COMPLICATIONS: None. CLINICAL SUMMARY: Godfrey Crum Sr. is a 53-year-old man with recurrent urolithiasis. The patient underwent ESWL on each side back last summer. CT scanning performed recently revealed 2 stones in the upper pole of the left kidney and 1 stone in the right kidney with 3 additional punctate stones noted. The patient elected to proceed with ESWL. He understands the stone are small, but does not want to pass even just to have the pain of passing even the 3 to 4 mm stone and wants the stones made into thin. He understand the risks of bleeding, infection, injury to adjacent structures, need for additional procedures and elected to proceed. OPERATIVE PROCEDURE IN DETAIL: Informed consent was verified. Godfrey Crum Sr. was properly identified, taken to the operating room where he was placed on the lithotripsy table in supine position. Anesthesia was uneventfully begun. Under fluoroscopy, I could not visualize the right side of the stone. I could visualize the 2 stones in the upper pole of the left kidney. As a cluster they were of a diameter of approximally 6 mm. The stones in the left upper pole were localized with biplanar fluoroscopy. Total of 3000 shocks were delivered with fragmentation noted. The patient was then uneventfully reversed from anesthesia and taken to recovery room in stable condition. There were no complications during the procedure and patient tolerated the procedure well. Explicit postoperative instructions were given. Plans will be to obtain a KUB following a mild bowel perforation to see we can visualize the right side of the stone. Should we be able to visualize the right side of the stone, we will plan on performing additional ESWL on the right hand side. Job#: [id number] VAS
== END | disposition home or self-care (01) ==
LOC: OR 10:01
PROVIDERS: ATTEND Urology
DX: N20.0 Calculus of kidney (principal); G47.419 Narcolepsy without cataplexy; G47.33 Obstructive sleep apnea (adult) (pediatric); K21.9 Gastro-esophageal reflux disease without esophagitis; K44.9 Diaphragmatic hernia without obstruction or gangrene; F41.9 Anxiety disorder, unspecified; Z01.810 Encounter for preprocedural cardiovascular examination; Z01.818 Encounter for other preprocedural examination; Z88.8 Allergy status to other drugs, medicaments and biological substances
CPT/HCPCS: 36415; 50590; 71046; 74018; 80053; 83970; 84550; 85025; 93005; J0696; J1100; J1885; J2405; J2704; J3490

== ENCOUNTER → 2018-10-13 | Outpatient (CLI) | payer OTHER ==
[~2018-10-13] MED LIST changes: -CEFTRIAXONE SOD 1 GM VIAL ONE; -DEXAMETHASONE SOD PHOS INJ 4 MG/ML VIAL ONE; -FENTANYL CITRATE/PF 100MCG/2 ML INJ ONE; -GLYCOPYRROLATE INJ 1MG/ 5 ML SYR ONE; -KETOROLAC TROMETHAMINE 30 MG/ML VIAL ONE; -ONDANSETRON HCL INJ 2 MG/ML VIAL ONE; -PROPOFOL IV EMULSION 10 MG/ML 20 ML VIAL ONE; -SEVOFLURANE INHAL SOLN 250 ML PEN BTL ONE
--- NOTE | 2018-10-13 11:22 | Diagnostic Imaging Report ---
RADIOGRAPH(S) OF THE ABDOMEN AND PELVIS, 2 view(s) HISTORY: Calculus of kidney, right side COMPARISON: CT of the abdomen and pelvis March 26, 2018. Abdominal and pelvic radiographs October 08, 2018. FINDINGS: Stool and bowel gas partially limits evaluation. The recently described 3 mm right lower kidney and 5 mm left upper kidney calcific densities are not definitely seen on this exam. A nonspecific 4 mm density projects over the region of the medial aspect of the superior aspect of the right kidney. IMPRESSION: 1. A 4 mm radiopaque density projecting in the region of the medial superior aspect of the right kidney, may reflect one of the renal calculi seen on the comparison CT. 2. Additional renal calculi and the 5 mm calculus within the left proximal ureter on the comparison CT and radiographs, are not definitively seen on these radiographs. Signed by: Dr. Godwin Brian D.O., M.M.M. on 10/13/2018 11:18 AM
== END ==
LOC: RAD 10:27
PROVIDERS: ATTEND Internal Medicine
DX: N20.0 Calculus of kidney (principal)
CPT/HCPCS: 74018

== ENCOUNTER → 2018-10-20 | Day surgery (SDC) | payer OTHER ==
[~2018-10-20] MED LIST changes: +CEFTRIAXONE SOD 1 GM/NS 50 ML 50 ML IV ONE; +DEXAMETHASONE SOD PHOS INJ 4 MG/ML VIAL ONE; +FENTANYL CITRATE/PF 100MCG/2 ML INJ ONE; +GLYCOPYRROLATE INJ 1MG/ 5 ML SYR ONE; +LIDOCAINE HCL 2% LOCAL INJ 5 ML SDV VIAL INJ ONE; +MORPHINE SULFATE INJ 4 MG/ML INJ 1ML ONE; +ONDANSETRON HCL INJ 2MG/ML 2ML 2 MG/ML VIAL ONE; +PROPOFOL IV EMULSION 10 MG/ML 20 ML VIAL ONE; +SEVOFLURANE INHAL SOLN 250 ML PEN BTL ONE
--- NOTE | 2018-10-20 07:56 | Diagnostic Imaging Report ---
Abdomen, one view. History: Stones. Comparison: KUB dated 10/13/2018 Findings: Small calcification overlies the upper aspect of the right kidney. The intestinal gas pattern is nonobstructive. There no masses. The osseous structures are intact. IMPRESSION: 1. No acute abdominal abnormality. 2. Calcification overlying the right kidney. Signed by: Dr. Sammy Blanca DO on 10/20/2018 7:52 AM
[2018-10-20 10:50] VITALS: BP 120/81
--- NOTE | 2018-12-14 02:35 | Operative Report ---
DATE OF PROCEDURE: October 20, 2018 PREOPERATIVE DIAGNOSIS: Right nephrolithiasis. POSTOPERATIVE DIAGNOSIS: Right nephrolithiasis. OPERATIONS PERFORMED 1. Staged right-sided extracorporeal shock wave lithotripsy. 2. Supervision of fluoroscopy; no radiologist present. ANESTHESIA: General. COMPLICATIONS: None. CLINICAL SUMMARY: Godfrey Crum, ., is a 53-year-old man with recurrent urolithiasis. He underwent contralateral ESWL. He is brought to the operating room today for ESWL on this side. He is aware of the risks of bleeding, infection, injury to adjacent structures, need for additional procedures, and elected to proceed. OPERATIVE PROCEDURE IN DETAIL: Informed consent was verified. Godfrey Crum was properly identified, taken to the operating room, placed on the lithotripsy table in supine position. Anesthesia was uneventfully begun. The 5 mm upper pole caliceal stone on the right hand side was localized with biplanar fluoroscopy. A total of 3000 shocks was delivered with fragmentation noted. The patient was then uneventfully reversed from anesthesia and taken to the recovery room in stable condition. There were no complications to the procedure. He tolerated the procedure well. Explicit postop instructions were given. We will follow the patient up in the office. Job#: [id number]
== END | disposition home or self-care (01) ==
LOC: OR 06:01
PROVIDERS: ATTEND Urology
DX: N20.0 Calculus of kidney (principal); Z88.8 Allergy status to other drugs, medicaments and biological substances; G47.33 Obstructive sleep apnea (adult) (pediatric); R42 Dizziness and giddiness; G47.419 Narcolepsy without cataplexy; F41.9 Anxiety disorder, unspecified; F17.290 Nicotine dependence, other tobacco product, uncomplicated
CPT/HCPCS: 50590; 74018; J0696; J1100; J2001; J2270; J2405; J2704; J3490

== ENCOUNTER → 2018-12-21 | Outpatient (CLI) | payer OTHER ==
[~2018-12-21] MED LIST changes: -CEFTRIAXONE SOD 1 GM/NS 50 ML 50 ML IV ONE; -DEXAMETHASONE SOD PHOS INJ 4 MG/ML VIAL ONE; -FENTANYL CITRATE/PF 100MCG/2 ML INJ ONE; -GLYCOPYRROLATE INJ 1MG/ 5 ML SYR ONE; -LIDOCAINE HCL 2% LOCAL INJ 5 ML SDV VIAL INJ ONE; -MORPHINE SULFATE INJ 4 MG/ML INJ 1ML ONE; -ONDANSETRON HCL INJ 2MG/ML 2ML 2 MG/ML VIAL ONE; -PROPOFOL IV EMULSION 10 MG/ML 20 ML VIAL ONE; -SEVOFLURANE INHAL SOLN 250 ML PEN BTL ONE
--- NOTE | 2018-12-21 09:26 | Diagnostic Imaging Report ---
EXAM: ABDOMEN-1VIEW (KUB) DATE: 12/21/2018 8:35 AM INDICATION: Kidney stone COMPARISON: KUB, 10/20/2018 FINDINGS: 2 supine views of the abdomen were obtained. There is a normal distribution of air in the small and large bowel. There is moderate retained stool in the colon. Previously noted small calcification projected on the upper pole of the right kidney is not identified on current views. However, this area is obscured by overlying bowel material and might hide a small calcification is present. No calcification is identified overlying either kidney or along the expected course of either ureter. Lung bases are clear. No acute bony abnormality. IMPRESSION: 1. No evidence for bowel dilatation or obstruction. 2. No urinary tract calcification is identified, noting that the renal areas, particularly on the right, are partially obscured by overlying bowel material. Signed by: Dr. Cody Lobo M.D. on 12/21/2018 9:23 AM
== END ==
LOC: RAD 08:26
PROVIDERS: ATTEND Urology
DX: N20.0 Calculus of kidney (principal)
CPT/HCPCS: 74018

== ENCOUNTER → 2019-03-29 | Outpatient (CLI) | payer OTHER ==
--- NOTE | 2019-03-29 10:32 | Diagnostic Imaging Report ---
Exam: KUB - 1 Clinical History: Renal calculus. Comparison: KUB 12/21/2018, CT Abdomen/Pelvis 03/26/2018. Findings: Bowel gas partially obscures evaluation of bilateral kidneys. Punctate bilateral renal stones better characterized on CT abdomen/pelvis from 03/26/2018 are not well seen on this study. No evidence of calcification overlying the expected course of the ureters. Nonobstructive bowel gas pattern. No acute osseous abnormality. Impression: Bowel gas partially obscures evaluation of bilateral kidneys. Punctate bilateral renal stones are not well seen on this study. Signed by: Dr. Dylon Barrios MD on 03/29/2019 10:29 AM
== END ==
LOC: RAD 09:40
PROVIDERS: ATTEND Urology
DX: N20.0 Calculus of kidney (principal)
CPT/HCPCS: 74018

== ENCOUNTER 2019-06-25 10:13 | Emergency (ER) | payer OTHER ==
[~2019-06-25] VITALS: Ht 175.3 cm; Wt 73.5 kg
--- OUTSIDE RECORDS SUMMARY | 2019-06-25 10:17 | XMS REPORT | Summary of Care ---
Author Author [facility] [place] Organization [facility] [place] Address Unknown Phone Unavailable Encounter HQ Karenntr_amelia(FIN) [id number] Date(s): 12/30/18 - 12/30/18 [facility] [place] [address] [place] [address]- [phone] Discharge Disposition: Home or Self Care Attending Physician: Kandace Azul MD Referring Physician: Kandace Azul MD Vital Signs No data available for [...]
--- OUTSIDE RECORDS SUMMARY | 2019-06-25 10:17 | XMS REPORT | Continuity of Care Document ---
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 Unavailable Unavailable Problems Problem Status Onset Date Classification Date Reported Comments Source G31.89 - OTHER SPECIFIED DEGENERATIVE D Active 02/15/2018 [facility] Intractable pain Active 07/15/2016 Problem 03/29/2018 [facility] Calculus of ureter Active 07/15/2016 Problem 03/29/2018 [facility] Calculus of right ureter Active 05/26/2016 Problem 03/29/2018 [facility] BACK PAIN Active 05/26/2013 [facility] Arthritis Resolved Problem 05/28/2013 [facility] Kidney stone Resolved Problem 05/28/2013 [facility] Sleep apnea Resolved Problem 05/28/2013 [facility] Arthritis (disorder) Resolved Problem 01/01/2019 [facility] Kidney stone (disorder) Resolved Problem 01/01/2019 [facility] Sleep apnea (finding) Resolved Problem 01/01/2019 [facility] Calculus of left kidney Active Problem 03/29/2018 [facility] Calculus of right kidney Active Problem 03/29/2018 [facility] Medications Medication Details Route Status Patient Instructions Ordering Provider Order Date Source Acetaminophen With Codeine (Tylenol With Codeine #3 Tablet) 1 Each Tablet, 1 Ea Oral Every 4 Hours as needed for Pain Active 04/29/2017 [facility] Adalimumab (Humira) 40 Mg/0.8 Ml Kit, 40 Mg Sub-Q Active 04/29/2017 [facility] Lisdexamfetamine Dimesylate (Vyvanse) 60 Mg Capsule, 60 Mg Oral Daily Active 04/29/2017 [facility] Oxybutynin Chloride (Ditropan Xl) 5 Mg Tab.er.24, 5 Mg Oral Three Times A Day Active 04/29/2017 [facility] Temazepam 15 Mg Capsule, 15 Mg Oral Daily Active 04/29/2017 [facility] Oxybutynin Chloride (Ditropan Xl) 5 Mg Tab.er.24, 5 Mg Oral Twice A Day as needed for Bladder Spasms Active 07/09/2016 [facility] Levofloxacin (Levaquin) 500 Mg Tablet, 500 Mg Oral Daily Active 07/08/2016 [facility] Folic Acid 1 Mg Tablet, 1 Mg Oral Bedtime Active 05/26/2016 [facility] Methotrexate Sodium/Pf (Methotrexate 1 Gm Vial) 1 Gm Vial, 0.8 Ml Injection Thurs Active 05/20/2016 [facility] Diazepam 10 Mg Tablet, 10 Mg as needed Active 11/26/2015 [facility] Methotrexate Sodium (Methotrexate) 2.5 Mg Tablet, 2.5 Mg 5WKLY Active 11/26/2015 [facility] Temazepam 30 Mg Capsule, 30 Mg as needed Active 11/26/2015 [facility] Vivance , 50 Mg Oral Daily Active 11/26/2015 [facility] Amphet Asp/Amphet/D-Amphet (Adderall 20 Mg Tablet) 20 Mg Tablet, 20 Mg as needed Active 08/07/2015 [facility] Hydrocodone Bit/Acetaminophen (Vicodin Es 7.5-750 Mg Tablet) 1 Each Tablet, 1 - 2 Tab Oral Every 3-4 Hours as needed Active 08/07/2015 [facility] Polyethylene Glycol 3350 (Miralax) 17 Gm Powd.pack, 1 - 2 Tbs Oral Daily Active 08/07/2015 [facility] Flexeril 10 mg oral tablet See Instructions, PRN, 1 tab PO TID, 21 tab, for spasm, Substitution Allowed, TAB1 tab PO TID Active [facility] 05/27/2013 [facility] Ultracet oral tablet 1 tab, PO, Q4H, PRN, 20 tab, for pain, Substitution Allowed, Maintenance, TAB PO Active [facility] 05/27/2013 [facility] ondansetron 4 mg, 2 mL, Route: IVP, Drug form: INJ, ONCE, Dosing Weight 72.273, kg, Priority: STAT, Start date: 05/26/13 20:55:00, Stop date: 05/26/13 20:55:00 IVP No Longer Active [facility] 05/27/2013 [facility] hydromorphone 1 mg, 1 mL, Route: IV, Drug form: SOLN, ONCE, Dosing Weight 72.273, kg, Start date: 05/26/13 20:55:00, Stop date: 05/26/13 20:55:00 IV No Longer Active [facility] 05/27/2013 [facility] Amphet Asp/Amphet/D-Amphet (Adderall Xr 30 Mg Capsule) 30 Mg Cap.er.24h Daily Active [facility] Diazepam (Valium) 10 Mg Tablet As Needed Active [facility] Duloxetine Hcl (Cymbalta) 30 Mg Capsule.dr Twice A Day Active [facility] Metoprolol Tartrate 50 Mg Tablet Twice A Day Active [facility] Pregabalin (Lyrica) 75 Mg Cap Twice A Day Active [facility] Temazepam 15 Mg Capsule Bedtime Active [facility] Allergies, Adverse Reactions, Alerts Substance Category Reaction Severity Reaction type Status Date Reported Comments Source Haloperidol CRAMPING/SPASM Mild Allergy to Substance Active 05/26/2016 [facility] Haldol Assertion Drug allergy Active [facility] Immunizations No Data Provided for This Section Results Order Name Results Value Reference Range Date Interpretation Comments Source Automated blood basophil count (count/volume) Automated blood basophil count (count/volume) 0.0 0.0 - 0.1 03/28/2018 [facility] Automated blood basophil count as percentage of total leukocytes Automated blood basophil count as percentage of total leukocytes 0.2 0.0 - 1.0 03/28/2018 [facility] Automated blood eosinophil count Automated blood eosinophil count 0.1 0.0 - 0.4 03/28/2018 [facility] Automated blood eosinophil count as percentage of total leukocytes Automated blood eosinophil count as percentage of total leukocytes 0.7 0.0 - 6.0 03/28/2018 [facility] Automated blood hematocrit (volume fraction) Automated blood hematocrit (volume fraction) 42.9 38.2 - 49.6 03/28/2018 [facility] Automated blood lymphocyte count as percentage ot total leukocytes Automated blood lymphocyte count as percentage ot total leukocytes 13.9 18.0 - 39.1 03/28/2018 [facility] Automated blood monocyte count as percentage of total leukocytes Automated blood monocyte count as percentage of total leukocytes 7.8 4.4 - 11.3 03/28/2018 [facility] Automated blood neutrophil count Automated blood neutrophil count 6.8 2.1 - 6.9 03/28/2018 [facility] Automated blood platelet count (count/volume) Automated blood platelet count (count/volume) 159 140 - 360 03/28/2018 [facility] Automated blood segmented neutrophil count as percentage of total leukocytes Automated blood segmented neutrophil count as percentage of total leukocytes 76.8 38.7 - 80.0 03/28/2018 [facility] Automated erythrocyte mean corpuscular hemoglobin (mass per erythrocyte) Automated erythrocyte mean corpuscular hemoglobin (mass per erythrocyte) 32.5 28 - 32 03/28/2018 [facility] Automated erythrocyte mean corpuscular hemoglobin concentration measurement (mass/volume) Automated erythrocyte mean corpuscular hemoglobin concentration measurement (mass/volume) 32.9 31 - 35 03/28/2018 [facility] Automated erythrocyte mean corpuscular volume Automated erythrocyte mean corpuscular volume 98.8 81 - 99 03/28/2018 [facility] Blood erythrocytes automated count (number/volume) Blood erythrocytes automated count (number/volume) 4.34 4.3 - 5.7 03/28/2018 [facility] Blood hemoglobin measurement (moles/volume) Blood hemoglobin measurement (moles/volume) 14.1 14.0 - 18.0 03/28/2018 [facility] Blood leukocytes automated count (number/volume) Blood leukocytes automated count (number/volume) 8.82 4.8 - 10.8 03/28/2018 [facility] Blood lymphocytes count (number/volume) Blood lymphocytes count (number/volume) 1.2 1.0 - 3.2 03/28/2018 [facility] Blood monocytes automated count (number/volume) Blood monocytes automated count (number/volume) 0.7 0.2 - 0.8 03/28/2018 [facility] Estimated glomerular filtration rate (GFR) determination Estimated glomerular filtration rate (GFR) determination 41 60 03/28/2018 [facility] Glucose measurement Glucose measurement 97 74 - 118 03/28/2018 [facility] Serum or plasma anion gap Serum or plasma anion gap 11.9 8 - 16 03/28/2018 [facility] Serum or plasma calcium measurement (mass/volume) Serum or plasma calcium measurement (mass/volume) 8.3 8.4 - 10.2 03/28/2018 [facility] Serum or plasma carbon dioxide, total measurement (moles/volume) Serum or plasma carbon dioxide, total measurement (moles/volume) 23 22 - 29 03/28/2018 [facility] Serum or plasma chloride measurement (moles/volume) Serum or plasma chloride measurement (moles/volume) 105 98 - 107 03/28/2018 [facility] Serum or plasma creatinine measurement (mass/volume) Serum or plasma creatinine measurement (mass/volume) 1.74 0.72 - 1.25 03/28/2018 [facility] Serum or plasma potassium measurement (moles/volume) Serum or plasma potassium measurement (moles/volume) 3.9 3.5 - 5.1 03/28/2018 [facility] Serum or plasma sodium measurement (moles/volume) Serum or plasma sodium measurement (moles/volume) 136 136 - 145 03/28/2018 [facility] Serum or plasma urea nitrogen measurement (mass/volume) Serum or plasma urea nitrogen measurement (mass/volume) 23 7 - 26 03/28/2018 [facility] Serum or plasma urea nitrogen/creatinine mass ratio Serum or plasma urea nitrogen/creatinine mass ratio 13 6 - 25 03/28/2018 [facility] Red Cell Distribution Width 13.0 11.7 - 14.4 03/28/2018 [facility] IM GRANULOCYTES % 0.6 0.0 - 1.0 03/28/2018 [facility] Absolute Immature Granulocyte (auto 0.05 0 - 0.1 03/28/2018 [facility] Plasma globulin measurement (mass/volume) Plasma globulin measurement (mass/volume) 2.4 2.3 - 3.5 03/27/2018 [facility] Serum or plasma alanine aminotransferase measurement (enzymatic activity/volume) Serum or plasma alanine aminotransferase measurement (enzymatic activity/volume) 14 0 - 55 03/27/2018 [facility] Serum or plasma albumin measurement (mass/volume) Serum or plasma albumin measurement (mass/volume) 3.5 3.5 - 5.0 03/27/2018 [facility] Serum or plasma albumin/globulin mass ratio Serum or plasma albumin/globulin mass ratio 1.5 0.8 - 2.0 03/27/2018 [facility] Serum or plasma alkaline phosphatase measurement (enzymatic activity/volume) Serum or plasma alkaline phosphatase measurement (enzymatic activity/volume) 48 40 - 150 03/27/2018 [facility] Serum or plasma protein measurement (mass/volume) Serum or plasma protein measurement (mass/volume) 5.9 6.5 - 8.1 03/27/2018 [facility] Serum or plasma total bilirubin measurement (mass/volume) Serum or plasma total bilirubin measurement (mass/volume) 0.7 0.2 - 1.2 03/27/2018 [facility] Aspartate Amino Transf (AST/SGOT) 19 5 - 34 03/27/2018 [facility] Automated urine sediment leukocyte count by microscopy (number/high power field) Automated urine sediment leukocyte count by microscopy (number/high power field) <5 0 - 5 03/27/2018 [facility] Bacteria detection in urine sediment by light microscopy Bacteria detection in urine sediment by light microscopy RARE NONE 03/27/2018 [facility] Epithelial cells detection in urine sediment by light microscopy Epithelial cells detection in urine sediment by light microscopy RARE NONE 03/27/2018 [facility] Erythrocytes detection in urine sediment by light microscopy Erythrocytes detection in urine sediment by light microscopy <10 0 - 5 03/27/2018 [facility] Mucus detection in urine sediment by light microscopy Mucus detection in urine sediment by light microscopy MANY RARE 03/27/2018 [facility] Specific gravity of Urine by Test strip Specific gravity of Urine by Test strip 1.030 1.010 - 1.025 03/27/2018 [facility] Urine clarity Urine clarity HAZY CLEAR 03/27/2018 [facility] Urine color determination Urine color determination YELLOW YELLOW 03/27/2018 [facility] Urine erythrocytes detection Urine erythrocytes detection NEGATIVE NEGATIVE 03/27/2018 [facility] Urine glucose detection Urine glucose detection NEGATIVE NEGATIVE 03/27/2018 [facility] Urine ketones detection by automated test strip Urine ketones detection by automated test strip NEGATIVE NEGATIVE 03/27/2018 [facility] Urine leukocyte esterase detection by dipstick Urine leukocyte esterase detection by dipstick NEGATIVE NEGATIVE 03/27/2018 [facility] Urine nitrite detection Urine nitrite detection NEGATIVE NEGATIVE 03/27/2018 [facility] Urine pH measurement by automated test strip Urine pH measurement by automated test strip 6 5 - 7 03/27/2018 [facility] Urine protein measurement by test strip (mass/volume) Urine protein measurement by test strip (mass/volume) TRACE NEGATIVE 03/27/2018 [facility] Urine total bilirubin measurement (mass/volume) Urine total bilirubin measurement (mass/volume) NEGATIVE NEGATIVE 03/27/2018 [facility] Urine urobilinogen measurement by test strip (mass/volume) Urine urobilinogen measurement by test strip (mass/volume) 0.2 0.2 - 1 03/27/2018 [facility] Bacterial urine culture Bacterial urine culture Urine Culture [facility] Pathology Reports No Data Provided for This Section Diagnostic Reports Report Value Date Source Brain w/wo contrast MRI Brain w/wo contrast MRI 12/30/2018 12:43 [facility] Clinical Indication: - 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 14 mL of intravenous gadolinium was given. FINDINGS: BRAIN: No restricted diffusion is identified. The brain parenchyma has normal signal with normal bradshaw-white junction, sulci, and gyri. There is no extra-axial fluid collection or intraparenchymal hemorrhage. Stable small right frontal lobe enhancing developmental venous anomaly. CEREBELLOPONTINE REGIONS, SELLA, AND SKULL: The cerebellopontine [...] intracranial hemorrhage, mass, or acute infarct. 2. Stable small right frontal lobe developmental venous anomaly. 12/30/2018 [facility] Brain w/wo contrast MRI Brain w/wo contrast [...] right frontal lobe developmental venous anomaly. 02/16/2018 [facility] Spine lumbar 2 or 3 views PROCEDURE: Spine lumbar AP lateral REASON FOR EXAM: See Clinic Indication CLINICAL INDICATION: Pain, Lumbar region COMPARISON: None. FINDINGS: No definite acute fracture or pathologic subluxation. Alignment of the lumbar spine is grossly intact. The pedicles are symmetric. No definite destructive bony process is present. SL: 14 05/26/2013 [facility] Consultation Notes No Data Provided for This Section Discharge Summaries No Data Provided for This Section History and Physicals No Data Provided for This Section Vital Signs Vital Sign Value Date Comments Source Weight 72.273 05/27/2013 [facility] Height 175.26 cm 05/27/2013 [facility] Encounters Location Location Details Encounter Type Encounter Number Reason For Visit Attending Provider ADM Date DC Date Status Source [facility] Emergency [id number] BACK PAIN ASENely ADEDAGMAR 05/26/2013 05/26/2013 Active [facility] [id number] Kandace Thursday02/16/2018 02/17/2018 [facility] Discharged Inpatient [id number] ANA RODRÍGUEZ MD 03/26/2018 03/29/2018 [facility] [id number] Kandaec Thursday12/30/2018 12/31/2018 [facility] Procedures Procedure Code Date Perfomer Comments Source CT of abdomen and pelvis without contrast [id number] 03/26/2018 ZOEY [facility] Assessment and Plan No Data Provided for This Section Plan of Care Plan of Care Date Source Discharge Date 03/29/18 6:42am Disposition HOME, SELF-CARE Instructions/Education Provided Kidney Stones Prescriptions See Medication Section Referrals STEVE WASSERMAN MD (Urology) Order Date: 1 Week Entered Date: 03/29/2018 6:30am Address: [place] [id number] Additional Instructions/Education REGULAR DIET FOLLOW UP WITH PRIMARY PHYSICIAN 1WEEK. FOLLOW UP WITH [facility] IN 1 WEEK. 03/29/2018 [facility] Social History Social History Date Source Social History TypeResponse 12/31/2018 [facility] Social History Problem Response Recorded Date/Time Onset Date Status Hx Psychiatric Problems No 03/27/2018 12:54am Not Applicable Not Applicable Hx Eating Disorder No 03/27/2018 12:54am Not Applicable Not Applicable Hx Substance Use Disorder No 03/27/2018 12:54am Not Applicable Not Applicable Hx Depression No 03/27/2018 12:54am Not Applicable Not Applicable Hx Alcohol Use No 03/27/2018 12:54am Not Applicable Not Applicable Hx Substance Use Treatment No 03/27/2018 12:54am Not Applicable Not Applicable Hx Physical Abuse No 03/27/2018 12:54am Not Applicable Not Applicable 03/29/2018 [facility] Family History No Data Provided for This Section Advance Directives Order Name Results Value Date Source Advance Directives Advance Directives Directive Response Recorded Date/Time Does the patient have an advance directive? No 03/27/18 12:54am If yes, is advance directive on file with [facility]? No 07/08/16 1:02pm If not on file with [facility] will patient provide a copy? No 10/20/12 4:50pm Do you have a Directive to Physician? No 03/26/18 11:31pm Do you have a Medical Power of [employer] Teacher? No 03/26/18 11:31pm Do you have an out of hospital Do Not Resuscitate Order? No 03/26/18 11:31pm Do you have any special needs we should be aware of? No 03/26/18 11:31pm Do you have a support person here with you today? Yes 03/26/18 11:31pm Did patient receive Notice of Privacy Practices? Yes 03/26/18 11:31pm Did patient receive patient rights and responsibilities? Yes 03/26/18 11:31pm 03/29/2018 [facility] Functional Status No Data Provided for This Section
[2019-06-25] MEDS ORDERED: KETOROLAC TROMETHAMINE 30 MG/ML VIAL IV STA (10:56)
[2019-06-25] MEDS ORDERED: KETOROLAC TROMETHAMINE 30 MG/ML VIAL ONE (11:11)
--- NOTE | 2019-06-25 12:11 | Diagnostic Imaging Report ---
Exam: AP radiograph of the head-1 view; left hip radiographs-2 views History: Status post fall. Comparison: None. Findings: No evidence of acute fracture, malalignment, or soft tissue abnormality. Minimal degenerative changes in bilateral hips. Impression: No acute radiographic abnormality. Signed by: Dr. Dylon Barrios MD on 06/25/2019 12:08 PM
--- NOTE | 2019-06-25 12:14 | Diagnostic Imaging Report ---
EXAMINATION: Head and face CT without contrast. HISTORY: Status post fall, trauma trauma left sided jaw pain. COMPARISON: Maxillofacial CT 03/19/2009. TECHNIQUE: Multidetector axial images were obtained without contrast from the foramen magnum to the vertex and over the face. The images were reconstructed using brain and bone algorithms. Thin section brain images were reformatted into coronal and sagittal planes. Dose modulation, iterative reconstruction, and/or weight based adjustment of the mA/kV was utilized to reduce the radiation dose to as low as reasonably achievable. Head CT findings: Skull: No lytic or blastic lesions. No fractures. Parenchyma: Normal. No mass, hemorrhage or CT evidence of acute vascular insult. Brain volume: Normal for age. Ventricles: No hydrocephalus or displacement. Arteries: No density suggestive of thrombus. Dural sinuses: No abnormal density. Extra-axial spaces: No abnormal density. Foramen magnum: No mass, Chiari malformation, or basilar invagination. Sella: No obvious mass. Face CT findings: Bones: Unremarkable. Facial soft tissues: Unremarkable. Orbits contents: Unremarkable. Paranasal sinuses and drainage pathways: Postoperative changes in the bilateral ostiomeatal units which otherwise appear patent. Clear paranasal sinuses. Nasal septum and nasal cavities: Left-sided deviation. Anatomic variations: No significant anatomic variations. Teeth: No acute abnormality of the visualized teeth. IMPRESSION: Head CT: No intracranial abnormalities, particularly no post traumatic hemorrhage. Face CT: No acute facial fractures. Signed by: Dr. Kaela Lubin M.D. on 06/25/2019 12:11 PM
--- NOTE | 2019-06-25 12:14 | Diagnostic Imaging Report ---
Exam: Left shoulder radiographs-2 views History: Status post fall. Comparison None. Findings: There is a bony fragment superior to the distal clavicle, without definite donor site. There is mild widening of the left AC joint, measuring up to 11 mm. The left glenohumeral alignment is unremarkable. Impression: Suspected minimally displaced avulsion fracture of the left distal clavicle or acromion with widening of the left AC joint, suggestive of ligamentous injury. Suggest correlation for point tenderness at this location. Signed by: Dr. Dylon Barrios MD on 06/25/2019 12:10 PM
[2019-06-25] MEDS ORDERED: SODIUM CHLORIDE 0.9% 50ML 50 ML ONE (12:16)
[2019-06-25] MEDS ORDERED: IOPAMIDOL 370 MG/ML 200 ML INFUS..BTL INJ ONE (12:17)
[2019-06-25] MEDS ORDERED: ONDANSETRON HCL INJ 2MG/ML 2ML 2 MG/ML VIAL IV STA (13:10)
[2019-06-25] MEDS ORDERED: MORPHINE SULFATE 2 MG/ML SYR 1ML IV STA (13:10)
[2019-06-25] MEDS ORDERED: MORPHINE SULFATE INJ 4 MG/ML INJ 1ML ONE (13:15)
[2019-06-25] MEDS ORDERED: ONDANSETRON HCL INJ 2MG/ML 2ML 2 MG/ML VIAL ONE (13:15)
[2019-06-25] MEDS ORDERED: TYLENOL WITH C1 EACH PO (13:41)
--- NOTE | 2019-06-25 13:53 | Diagnostic Imaging Report ---
ADDENDUM #1 ADDENDUM: The impression is amended to state that there is no acute CT abnormality in the thorax. Furthermore, in the technique section, the study was performed with IV contrast. The addended report is as follows. EXAM: CT Chest WITH contrast INDICATION: Status post fall. COMPARISON: None TECHNIQUE: Chest was scanned utilizing a multidetector helical scanner from the lung apex through the level of the adrenal glands with administration of IV contrast. Coronal and sagittal reformations were obtained. Routine protocol was performed. IV CONTRAST: 100 mL of Omnipaque 300 RADIATION DOSE: Total DLP: 437.5 mGy*cm Estimated effective dose: (DLP x 0.014 x size factor) mSv COMPLICATIONS: None FINDINGS: LINES/ TUBES: None. LUNGS AND AIRWAYS: The central airways are patent. There is biapical pleural-parenchymal opacity, suggestive of prior granulomatous disease. There is patchy dependent atelectasis. PLEURA: The pleural spaces are clear. HEART AND MEDIASTINUM: The thyroid gland is normal. No mediastinal, hilar or axillary lymphadenopathy. The heart is normal in size.. There is no pericardial effusion. UPPER ABDOMEN: Limited contrast-enhanced views of the upper abdomen are unremarkable. BONES: The visualized bony thorax is within normal limits. SOFT TISSUES: Unremarkable. IMPRESSION: No acute CT abnormality in the thorax. Signed by: Dr. Dylon Barrios MD on 06/25/2019 2:02 PM ORIGINAL REPORT EXAM: CT Chest WITH contrast INDICATION: Status post fall. COMPARISON: None TECHNIQUE: Chest was scanned utilizing a multidetector helical scanner from the lung apex through the level of the adrenal glands without administration of IV contrast. Coronal and sagittal reformations were obtained. Routine protocol was performed. IV CONTRAST: 100 mL of Omnipaque 300 RADIATION DOSE: Total DLP: 437.5 mGy*cm Estimated effective dose: (DLP x 0.014 x size factor) mSv COMPLICATIONS: None FINDINGS: LINES/ TUBES: None. LUNGS AND AIRWAYS: The central airways are patent. There is biapical pleural-parenchymal opacity, suggestive of prior granulomatous disease. There is patchy dependent atelectasis. PLEURA: The pleural spaces are clear. HEART AND MEDIASTINUM: The thyroid gland is normal. No mediastinal, hilar or axillary lymphadenopathy. The heart is normal in size.. There is no pericardial effusion. UPPER ABDOMEN: Limited contrast-enhanced views of the upper abdomen are unremarkable. BONES: The visualized bony thorax is within normal limits. SOFT TISSUES: Unremarkable. IMPRESSION: No acute CT abnormality in the abdomen or pelvis. Signed by: Dr. Dylon Barrios MD on 06/25/2019 1:50 PM
== END 2019-06-25 14:14 | disposition home or self-care (01) ==
LOC: FSED 10:13
DX: R55 Syncope and collapse (principal); S42.032A Displaced fracture of lateral end of left clavicle, initial encounter for closed fracture; S70.02XA Contusion of left hip, initial encounter; W08.XXXA Fall from other furniture, initial encounter; Y92.008 Other place in unspecified non-institutional (private) residence as the place of occurrence of the external cause; F17.290 Nicotine dependence, other tobacco product, uncomplicated; F41.8 Other specified anxiety disorders; G47.411 Narcolepsy with cataplexy; R00.1 Bradycardia, unspecified
CPT/HCPCS: 70450; 70486; 71260; 73030; 73502; 80053; 82553; 85025; 85379; 93005; 99284; J1885; J2270 ×2; J2405; Q9967

== ENCOUNTER → 2019-07-22 | Outpatient (CLI) | payer OTHER ==
--- NOTE | 2019-07-22 15:08 | Diagnostic Imaging Report ---
Abdominal radiograph Clinical indication: Kidney calculus Comparison: 03/21/2019 Findings: No renal calculi are identified on this examination. The bowel gas pattern is nonobstructive. The lung bases are clear. No acute osseous abnormalities. Impression: No renal calculi identified on this study. Signed by: Zach Mendoza MD on 07/22/2019 3:05 PM
== END ==
LOC: RAD 14:05
PROVIDERS: ATTEND Urology
DX: N20.0 Calculus of kidney (principal); Z12.5 Encounter for screening for malignant neoplasm of prostate
CPT/HCPCS: 74018

== ENCOUNTER 2019-07-28 09:54 | Outpatient (RCR) | payer OTHER | END 2019-08-01 | LOC: PT 09:54 | PROVIDERS: ATTEND Orthopaedic Surgery | DX: S43.52XA Sprain of left acromioclavicular joint, initial encounter (principal); M25.512 Pain in left shoulder; M25.612 Stiffness of left shoulder, not elsewhere classified; M62.81 Muscle weakness (generalized) ==

== ENCOUNTER → 2019-12-30 | Outpatient (CLI) | payer OTHER ==
--- NOTE | 2019-12-30 11:20 | Diagnostic Imaging Report ---
EXAM: Abdomen Radiograph 1 View(s) INDICATION: ^[id number] ^[id number] ^CALCULUS OF KIDNEY COMPARISON: None FINDINGS: Nonspecific bowel gas pattern. Moderate formed stool within the colon. No abdominal calcification is identified to suggest a renal calculus. No acute osseous abnormality. IMPRESSION: No radiographically identified identified renal or ureteral calculus. Signed by: Casey Will MD on 12/30/2019 11:17 AM
== END ==
LOC: RAD 10:26
PROVIDERS: ATTEND Urology
DX: N20.0 Calculus of kidney (principal)
CPT/HCPCS: 74018

== ENCOUNTER → 2020-07-18 | Day surgery (SDC) | payer OTHER ==
[~2020-07-18] MED LIST changes: +ACETAMINOPHEN325 M1 PO; +AMBIEN10 MG PO; +B-125000 MCG/1 IM; +DECADRON0.5 MG IM; +DESONIDE15 GM TOP; +DETROL LA4 MG PO; +DICYCLOMINE HCL20 MG PO; +FENTANYL CITRATE/PF 100MCG/2 ML INJ ONE; +GLUCAGON FOR INJ 1 MG VIAL ONE; +HYOSCYAMINE 0.125 MG TAB ONE; +KENALOG-4040 MG/1 ML IM; +KETOROLAC TROME10 MG IM; +MIDAZOLAM HCL 2 MG/2 ML VIAL ONE; +OIL TOP; +PROPOFOL IV EMULSION 10 MG/ML 20 ML VIAL ONE; +PROTONIX40 MG PO; +RINVOQ ER15 MG PO; +T SAL SHAMPOO TOP; +TESTOSTERO100 MG/1 M IM; +VITAMIN B-121000 MC2 IM; +VYVANSE40 MG PO
[2020-07-18 16:30] LABS: WBC,FECAL (FECAL LACTOFERRIN) NEGATIVE (NEGATIVE)
[2020-07-18 16:45] VITALS: BP 120/79
[2020-07-19 14:09] LABS: C DIFFICILE TOXIN A&B AMP PROB NEGATIVE (NEGATIVE)
== END | disposition home or self-care (01) ==
LOC: OR 12:29
PROVIDERS: ATTEND Internal Medicine Gastroenterology
DX: K29.50 Unspecified chronic gastritis without bleeding (principal); C7A.8 Other malignant neuroendocrine tumors; Z86.010 Personal history of colon polyps; K51.50 Left sided colitis without complications; K21.0 Gastro-esophageal reflux disease with esophagitis; K22.8 Other specified diseases of esophagus; K44.9 Diaphragmatic hernia without obstruction or gangrene; K31.89 Other diseases of stomach and duodenum; B96.81 Helicobacter pylori [H. pylori] as the cause of diseases classified elsewhere; K62.89 Other specified diseases of anus and rectum; K64.8 Other hemorrhoids; G47.33 Obstructive sleep apnea (adult) (pediatric); R00.0 Tachycardia, unspecified; N20.0 Calculus of kidney; G90.1 Familial dysautonomia [Riley-Day]; G47.419 Narcolepsy without cataplexy; F41.9 Anxiety disorder, unspecified; Z88.8 Allergy status to other drugs, medicaments and biological substances; Z01.810 Encounter for preprocedural cardiovascular examination; Z01.812 Encounter for preprocedural laboratory examination; Z11.59 Encounter for screening for other viral diseases
CPT/HCPCS: 36415; 43239; 43450; 45380; 83630; 83993; 85651; 86140; 86256; 86671; 87045; 87177; 87328; 87493; 93005; J1610; J2250; J2704; J3010; U0002; 45378

== ENCOUNTER → 2020-08-08 | Day surgery (SDC) | payer OTHER ==
[2020-08-03 15:28] LABS: BASOPHILS % 0.3 % (0.0-1.0); EOSINOPHILS % 0.2 % (0.0-6.0); HEMATOCRIT 45.4 % (38.2-49.6); HEMOGLOBIN 15.7 g/dL (14.0-18.0); LYMPHOCYTES # (AUTO) 1.5 (1.0-3.2); LYMPHOCYTES % 13.9 % (18.0-39.1); MEAN CORPUSCULAR HEMOGLOBIN 32.2 pg (28-32); MEAN CORPUSCULAR HGB CONC 34.6 g/dL (31-35); MEAN CORPUSCULAR VOLUME 93.2 fL (81-99); MONOCYTES # (AUTO) 0.8 (0.2-0.8); MONOCYTES % 7.1 % (4.4-11.3); NEUTROPHILS # (AUTO) 8.4 (2.1-6.9); NEUTROPHILS % 78.1 % (38.7-80.0); PLATELET COUNT 298 x10e3/uL (140-360); RED BLOOD COUNT 4.87 x10e6/uL (4.3-5.7); RED CELL DISTRIBUTION WIDTH 12.6 % (11.7-14.4)
[~2020-08-08] MED LIST changes: -GLUCAGON FOR INJ 1 MG VIAL ONE; +LIDOCAINE HCL 2% LOCAL INJ 5 ML SDV VIAL INJ ONE; -MIDAZOLAM HCL 2 MG/2 ML VIAL ONE; +MIDAZOLAM HCL 5 MG/ML VIAL ONE
[2020-08-08 09:50] VITALS: BP 121/71
== END | disposition home or self-care (01) ==
LOC: OR 06:26
PROVIDERS: ATTEND Internal Medicine Gastroenterology
DX: C7A.8 Other malignant neuroendocrine tumors (principal); K59.09 Other constipation; K58.9 Irritable bowel syndrome, unspecified; G47.33 Obstructive sleep apnea (adult) (pediatric); I10 Essential (primary) hypertension; G47.419 Narcolepsy without cataplexy; M06.9 Rheumatoid arthritis, unspecified; I49.9 Cardiac arrhythmia, unspecified; K44.9 Diaphragmatic hernia without obstruction or gangrene; N20.0 Calculus of kidney; F41.9 Anxiety disorder, unspecified; Z88.8 Allergy status to other drugs, medicaments and biological substances; Z01.812 Encounter for preprocedural laboratory examination; Z11.59 Encounter for screening for other viral diseases
CPT/HCPCS: 36415; 45385; 85025; J2001; J2250; J2704; J3010; U0002; 45378

== ENCOUNTER 2020-08-09 10:54 | Emergency (ER) | payer OTHER ==
[~2020-08-09] VITALS: Ht 175.3 cm; Wt 73.5 kg
[~2020-08-09 10:54] MED LIST changes: -FENTANYL CITRATE/PF 100MCG/2 ML INJ ONE; -HYOSCYAMINE 0.125 MG TAB ONE; -LIDOCAINE HCL 2% LOCAL INJ 5 ML SDV VIAL INJ ONE; -MIDAZOLAM HCL 5 MG/ML VIAL ONE; -PROPOFOL IV EMULSION 10 MG/ML 20 ML VIAL ONE
[2020-08-09] MEDS ORDERED: ONDANSETRON HCL INJ 2MG/ML 2ML 2 MG/ML VIAL IV STA (11:27)
[2020-08-09] MEDS ORDERED: MORPHINE SULFATE INJ 4 MG/ML INJ 1ML IV ONE (11:30)
--- OUTSIDE RECORDS SUMMARY | 2020-08-09 11:44 | XMS REPORT | Continuity of Care Document ---
Author Author [facility] Organization [facility] Address [address] [place] [address] Phone Unavailable Care Team Providers Care Staging Technician Name Role Phone ANA RODRÍGUEZ MD PCP HAMJANETTE DELAROSA Attphys Unavailable Rachel WALKER Attphys Unavailable ANA RODRÍGUEZ Attphys Unavailable ANA RODRÍGUEZ Admphys Unavailable Payers Payer Name Policy Type Policy Number Effective Date Expiration Date Yo Graf o [id number] [facility] Problems Condition Name Condition Details Condition Category Status Onset Date Resolution Date Last Treatment Date Treating Clinician Comments Source Intractable pain Intractable pain Problem Active 2016-07-15 00:00:00 [facility] Calculus of ureter Ureterolithiasis Problem Active 2016-07-15 00:00:00 [facility] Calculus of right ureter Ureteral calculus, right Problem Acti ve 2016-05-26 00:00:00 [facility] Calculus of right kidney Kidney stone on right side Problem Active [facility] Allergies, Adverse Reactions, Alerts Allergy Name Allergy Type Status Severity Reaction(s) Onset Date Inacti ve Date Treating Clinician Comments Source Haloperidol Allergy to Substance Active Mild CRAMPING/SPASM 20 17-05-25 00:00:00 [facility] Medications Ordered Medication Name Filled Medication Name Start Date Stop Da te Current Medication? Ordering Clinician Indication Dosage Frequency Signature (SIG) Comments Components Source Acetaminophen With Codeine (Tylenol With Codeine #3 Ta blet) 1 Each Tablet Acetaminophen With Codeine (Tylenol With Codeine #3 Tablet) 1 Each Tablet 2019-06-25 00:00:00 Yes Adele Walker Md Every 6 Hours as needed for Pain [facility] Armodafinil (Nuvigil) 250 Mg Tablet Armodafinil (Nuvigil) 250 Mg Tabl et Yes 250 Daily [facility] Duloxetine Hcl (Cymbalta) 30 Mg Capsule. Duloxetine Hcl (Cymbalta) 30 Mg Capsule. Yes 30 Twice A Day [facility] Metoprolol Tartrate 50 Mg Tablet Metoprolol Tartrate 50 Mg Tablet Yes 50 Twice A Day [facility] Pregabalin (Lyrica) 100 Mg Capsule Pregabalin (Lyrica) 100 Mg Capsule Yes 100 Three Times A Day [facility] Sodium Oxybate (Xyrem) 500 Mg/1 Ml Solution Sodium Oxy douglas (Xyrem) 500 Mg/1 Ml Solution Yes 9 Bedtime [facility] Lactobac Cmb #3/Fos/Pantethine (Probioti c & Acidophilus Cap) 1 Each Capsule, Oral Lactobac Cmb #3/Fos/Pantethine (Probioti c & Acidophilus Cap) 1 Each Capsule, Oral 2018-10-07 00:00:00 No Daily [facility] Magnesium , Oral Magnesium , Oral 2018-10-07 00:00:00 No Bedtime [facility] Pregabalin (Lyrica) 75 Mg Cap, 75 Mg Oral Pregabalin ( Lyrica) 75 Mg Cap, 75 Mg Oral 2018-10-07 00:00:00 No 75 Twice A Day [facility] Amphet Asp/Amphet/D-Amphet (Adderall Xr 30 Mg Capsule) 30 Mg Cap.er.24h, 30 Mg Oral Amphet Asp/Amphet/D-Amphet (Adderall Xr 30 Mg Capsule) 30 Mg Cap.er.24h, 30 Mg Oral 2018-05-11 00:00:00 No 30 Daily [facility] Diazepam (Valium) 10 Mg Tablet, 10 Mg Oral Diazepam (V alium) 10 Mg Tablet, 10 Mg Oral 2018-05-11 00:00:00 No 10 As Needed [facility] Temazepam 15 Mg Capsule, 15 Mg Oral Temazepam 15 Mg Capsule, 15 Mg Oral 2018-05-11 00:00:00 No 15 Bedtime [facility] Acetaminophen With Codeine (Tylenol With Codeine #3 Tablet) 1 Each Tablet, 1 Ea Oral Acetaminophen With Codeine (Tylenol With Codeine #3 Tablet) 1 Each Tablet, 1 Ea Oral 2017-04-29 00:00:00 No 1 Every 4 Hours as needed for Pain [facility] Adalimumab (Humira) 40 Mg/0.8 Ml Kit, 40 Mg Sub-Q Rufus imumab (Humira) 40 Mg/0.8 Ml Kit, 40 Mg Sub-Q 2017-04-29 00:00:00 No 40 [facility] Lisdexamfetamine Dimesylate (Vyvanse) 60 Mg Capsule, 6 0 Mg Oral Lisdexamfetamine Dimesylate (Vyvanse) 60 Mg Capsule, 60 Mg Oral 2017-04-29 00:00:00 No 60 Daily [facility] Oxybutynin Chloride (Ditropan Xl) 5 Mg Tab.er.24, 5 Mg Oral Oxybutynin Chloride (Ditropan Xl) 5 Mg Tab.er.24, 5 Mg Oral 2017-04-29 00:00:00 No 5 Three Times A Day [facility] Temazepam 15 Mg Capsule, 15 Mg Oral Temazepam 15 Mg Capsule, 15 Mg Oral 2017-04-29 00:00:00 No 15 Daily [facility] Oxybutynin Chloride (Ditropan Xl) 5 Mg Tab.er.24, 5 Mg Oral Oxybutynin Chloride (Ditropan Xl) 5 Mg Tab.er.24, 5 Mg Oral 2016-07-09 00:00:00 No 5 Twice A Day as needed for Bladder Spasms [facility] Levofloxacin (Levaquin) 500 Mg Tablet, 500 Mg Oral Lev ofloxacin (Levaquin) 500 Mg Tablet, 500 Mg Oral 2016-07-08 00:00:00 No 500 D aily [facility] Folic Acid 1 Mg Tablet, 1 Mg Oral Folic Acid 1 Mg Tablet, 1 Mg O ral 2016-05-26 00:00:00 No 1 Bedtime [facility] Methotrexate Sodium/Pf (Methotrexate 1 Gm Vial) 1 Gm V ial, 0.8 Ml Injection Methotrexate Sodium/Pf (Methotrexate 1 Gm Vial) 1 Gm Vial, 0.8 Ml Injection 2016-05-20 00:00:00 No .8 Thurs [facility] Diazepam 10 Mg Tablet, 10 Mg Diazepam 10 Mg Tablet, 10 Mg 2015-11-26 00:00:00 No 10 as needed [facility] Methotrexate Sodium (Methotrexate) 2.5 Mg Tablet, 2.5 Mg Methotrexate Sodium (Methotrexate) 2.5 Mg Tablet, 2.5 Mg 2015-11-26 00:00:00 No 2.5 5WKLY [facility] Temazepam 30 Mg Capsule, 30 Mg Temazepam 30 Mg Capsule, 30 Mg 2015-11-26 00:00:00 No 30 as needed [facility] Vivance , 50 Mg Oral Vivance , 50 Mg Oral 2015-11-26 00:00:00 No 50 Daily [facility] Amphet Asp/Amphet/D-Amphet (Adderall 20 Mg Tablet) 20 Mg Tablet, 20 Mg Amphet Asp/Amphet/D-Amphet (Adderall 20 Mg Tablet) 20 Mg Tablet, 20 Mg 2015-08-07 00:00:00 No 20 as needed [facility] Hydrocodone Bit/Acetaminophen (Vicodin E s 7.5-750 Mg Tablet) 1 Each Tablet, 1 - 2 Tab Oral Hydrocodone Bit/Acetaminophen (Vicodin E s 7.5-750 Mg Tablet) 1 Each Tablet, 1 - 2 Tab Oral 2015-08-07 00:00:00 No Every 3-4 Hours as needed [facility] Polyethylene Glycol 3350 (Miralax) 17 Gm Powd.pack, 1 - 2 Tbs Oral Polyethylene Glycol 3350 (Miralax) 17 Gm Powd.pack, 1 - 2 Tbs Oral 2015-08-07 00:00:00 No Daily [facility] Procedures Procedure Date / Time Performed Performing Clinician [facility] FRAGMENTING OF KIDNEY STONE 2018-10-20 00:00:00 JANETTE MAN [facility] FRAGMENTING OF KIDNEY STONE 2018-10-08 00:00:00 JANETTE MAN [facility] X-ray of chest, two views 2018-10-07 00:00:00 JANETTE MAN [facility] Encounters Start Date/Time End Date/Time Encounter Type Admission Type Attendi [facility] Care Department Encounter ID Source 2019-08-02 10:42:00 2019-08-02 10:42:00 Outpatient [id number] [facility] 2019-07-28 09:54:00 2019-08-01 23:59:00 Discharged Recurring [facility] [id number] [facility] 2019-07-22 14:05:00 2019-07-22 14:05:00 Registered Clinic 3 [facility] [id number] [facility] 2019-06-25 10:13:00 2019-06-25 14:14:00 Departed Emergency Room 1 ADELE WALKER [facility] [id number] [facility] 2019-03-29 09:40:00 2019-03-29 09:40:00 Registered Clinic 3 [facility] [id number] [facility] 2018-12-21 08:26:00 2018-12-21 08:26:00 Registered Clinic 3 [facility] [id number] [facility] 2018-10-20 06:01:00 2018-10-20 06:01:00 Registered Surgical Day Car e 3 [facility] [id number] [facility] 2018-10-13 10:27:00 2018-10-13 10:27:00 Registered Clinic 3 ANA RODRÍGUEZ [facility] [id number] [facility] 2018-10-08 10:01:00 2018-10-08 10:01:00 Registered Surgical Day Car e 3 [facility] [id number] [facility] 2018-10-07 15:52:00 2018-10-07 15:52:00 Registered Clinic 3 ANA RODRÍGUEZ [facility] [id number] [facility] 2018-03-26 23:32:00 2018-03-29 06:42:00 Discharged Inpatient 1 ANA RODRÍGUEZ [facility] [id number] [facility] Results Test Description Test Time Test Comments Results Result Comments Source ABDOMEN-1VIEW (KUB) 2019-12-30 11:16:00 [place] [address] Patient Name: BONIFACIO GREEN SR MR #: [id number] : 1965 Age/Sex: 54/M Req #: [id number] Adm Physician: Ordered by: JANETTE MAN MD Report #: [id number] Location: [facility] Room/Bed: Procedure: [id number] DX/ABDOMEN-1VIEW ([facility]) Exam Date: 12/30/19 Exam Time: 1020 REPORT STATUS: Signed EXAM: Abdomen Radiograph 1 View(s) INDICATION: [id number] CALCULUS OF KIDNEY COMPARISON: None FINDINGS: Nonspecific bowel gas pattern. Moderate formed stool within the colon. No abdominal calcification is identified to suggest a renal calculus. No acute osseous abnormality. IMPRESSION: No radiographically identified identified renal or ureteral calculus. Signed by: Brady Marcano MD on 12/30/2019 11:17 AM Dictated By: BRADY MARCANO MD 1117 Transcribed By: JANETTE on 12/30/19 1117 COPY TO: JANETTE MAN MD ABDOMEN-1VIEW ([facility]) 2019-07-22 15:03:00 [place] [address] Patient Name: BONIFACIO GREEN SR MR #: [id number] : 1965 Age/Sex: 54/M Req #: [id number] Adm Physician: Ordered by: JANETTE MAN MD Report #: [id number] Location: [facility] Room/Bed: Procedure: [id number] DX/ABDOMEN-1VIEW ([facility]) Exam Date: 07/22/19 Exam Time: 1432 REPORT STATUS: Signed Abdominal radiograph Clinical indication: Kidney calculus Comparison: 03/21/2019 Findings: No renal calculi are identified on this examination. The bowel gas pattern is nonobstructive. The lung bases are clear. No acute osseous abnormalities. Impression: No renal calculi identified on this study. Signed by: Zach Villa MD on 07/22/2019 3:05 PM Dictated By: ZACH VILLA MD 1505 Transcribed By: JANETTE on 07/22/19 1505 COPY TO: JANETTE MAN MD CT CHEST WITH CONTRAST-HOPD 2019-06-25 13:44:00 [place] [address] Patient Name: BONIFACIO GREEN SR MR #: [id number] : 1965 Age/Sex: 53/M Req #: [id number] Adm Physician: Ordered by: ADELE WALKER MD Report #: [id number] Location: [facility] Room/Bed: Procedure: [id number] HOPD/CT CHEST WITH CONTRAST-HOPD Exam Date: 06/25/19 Exam Time: 1240 REPORT STATUS: Signed ADDENDUM #1 ADDENDUM: The impression is amended to state that there is no acute CT abnormality in the thorax. Furthermore, in the technique section, the study was performed with IV contrast. The addended report is as follows. EXAM: CT Chest WITH contrast INDICATION: Status post fall. COMPARISON: None TECHNIQUE: Chest was scanned utilizing a multidetector helical scanner from the lung apex through the level of the adrenal glands with administration of IV contrast. Coronal and sagittal reformations were obtained. Routine protocol was performed. IV CONTRAST: 100 mL of Omnipaque 300 RADIATION DOSE: Total DLP: 437.5 mGy*cm Estimated effective dose: (DLP x 0.014 x size factor) mSv COMPLICATIONS: None FINDINGS: LINES/ TUBES: None. LUNGS AND AIRWAYS: The central airways are patent. There is biapical pleural- parenchymal opacity, suggestive of prior granulomatous disease. There is patchy dependent atelectasis. PLEURA: The pleural spaces are clear. HEART AND MEDIASTINUM: The thyroid gland is normal. No mediastinal, hilar or axillary lymphadenopathy. The heart is normal in size.. There is no pericardial effusion. UPPER ABDOMEN: Limited contrast-enhanced views of the upper abdomen are unremarkable. BONES: The visualized bony thorax is within normal limits. SOFT TISSUES: Unremarkable. IMPRESSION: No acute CT abnormality in the thorax. Signed by: Dr. Sunny Hanley MD on 06/25/2019 2:02 PM ORIGINAL REPORT EXAM: CT Chest WITH c ontrast INDICATION: Status post fall. COMPARISON: None TECHNIQUE: Chest was scanned utilizing a multidetector helical scanner from the lung apex through the level of the adrenal glands without administration of IV contrast. Coronal and sagittal reformations were obtained. Routine protocol was performed. IV CONTRAST: 100 mL of Omnipaque 300 RADIATION DOSE: Total DLP: 437.5 mGy*cm Estimated effective dose: (DLP x 0.014 x size factor) mSv COMPLICATIONS: None FINDINGS: LINES/ TUBES: None. LUNGS AND AIRWAYS: The central airways are patent. There is biapical pleural-parenchymal opacity, suggestive of prior granulomatous disease. There is patchy dependent atelectasis. PLEURA: The pleural spaces are clear. HEART AND MEDIASTINUM: The thyroid gland is normal. No mediastinal, hilar or axillary lymphadenopathy. The heart is normal in size.. There is no pericardial effusion. UPPER ABDOMEN: Limited contrast-enhanced views of the upper abdomen are unremarkable. BONES: The visualized bony thorax is within normal limits. SOFT TISSUES: Unremarkable. IMPRESSION: No acute CT abnormality in the abdomen or pelvis. Signed by: Dr. Sunny Hanley MD on 06/25/2019 1:50 PM Dictated By: SUNNY HANLEY MD 1402 Transcribed By: JANETTE on 06/25/19 1350 COPY TO: ADELE WALKER MD [place] [id number] 2019-06-25 12:08:00 [place] [address] Patient Name: BONIFACIO GREEN SR MR #: [id number] : 1965 Age/Sex: 53/M Req #: [id number] Adm Physician: Ordered by: ADELE WALKER MD Report #: [id number] Location: [facility] Room/Bed: Procedure: HOPD/SHOULDER 2+VW LT -HOPD Exam Date: 06/25/19 Exam Time: 1120 REPORT STATUS: Signed Exam: Left shoulder radiographs-2 views History: Status post fall. Comparison None. Findings: There is a bony fragment superior to the distal clavicle, without definite donor site. There is mild widening of the left AC joint, measuring up to 11 mm. The left glenohumeral alignment is unremarkable. Impression: Suspected minimally displaced avulsion fracture of the left distal clavicle or acromion with widening of the left AC joint, suggestive of ligamentous injury. Suggest correlation for point tenderness at this location. Signed by: Dr. Sunny Hanley MD on 06/25/2019 12:10 PM Dictated By: SUNNY HANLEY MD 1210 Transcribed By: JANETTE on 06/25/19 1210 COPY TO: ADELE WALKER MD HIP 2VW LT W/PELVIS - HOPD 2019-06-25 12:06:00 [place] [address] Patient Name: BONIFACIO GREEN SR MR #: [id number] : 1965 Age/Sex: 53/M Req #: [id number] Adm Physician: Ordered by: ADELE WALKER MD Report #: [id number] Location: [facility] Room/Bed: Procedure: [id number] HOPD/HIP 2VW LT W/PELVIS - HOPD Exam Date: 06/25/19 Exam Time: 1120 REPORT STATUS: Signed Exam: AP radiograph of the head-1 view; left hip radiographs-2 views History: Status post fall. Comparison: None. Findings: No evidence of acute fracture, malalignment, or soft tissue abnormality. Minimal degenerative changes in bilateral hips. Impression: No acute radiographic abnormality. Signed by: Dr. Sunny Hanley MD on 06/25/2019 12:08 PM Dictated By: SUNNY HANLEY MD 1208 Transcribed By: JANETTE on 06/25/19 1208 COPY TO: ADELE WALKER MD CT MAX/FACPARANASA SIN WO-HOPD 2019-06-25 12:06:00 [place] [address] Patient Name: BONIFACIO GREEN SR MR #: [id number] : 1965 Age/Sex: 53/M Req #: [id number] Adm Physician: Ordered by: ADELE WALKER MD Report #: [id number] Location: [facility] Room/Bed: Procedure: [id number] HOPD/CT MAX/FACPARANASA SIN WO-HOPD Exam Date: 06/25/19 Exam Time: 1120 REPORT STATUS: Signed EXAMINATION: Head and face C T without contrast. HISTORY: Status post fall, trauma trauma left sided jaw pain. COMPARISON: Maxillofacial CT 03/19/2009. TECHNIQUE: Multidetector axial images were obtained without contrast from the foramen magnum to the vertex and over the face. The images were reconstructed using brain and bone algorithms. Thin section brain images were reformatted into coronal and sagittal planes. Dose modulation, iterative reconstruction, and/or weight based adjustment of the mA/kV was utilized to reduce the radiation dose to as low as reasonably achievable. Head CT findings: Skull: No lytic or blastic lesions. No fractures. Parenchyma: Normal. No mass, hemorrhage or CT evidence of acute vascular insult. Brain volume: Normal for age. Ventricles: No hydrocephalus or displacement. Arteries: No density suggestive of thrombus. Dural sinuses: No abnormal density. Extra-axial spaces: No abnormal density. Foramen magnum: No mass, Chiari malformation, or basilar invagination. Sella: No obvious mass. Face CT findings: Bones: Unremarkable. Facial soft tissues: Unremarkable. Orbits contents: Unremarkable. Paranasal sinuses and drainage pathways: Postoperative changes in the bilateral ostiomeatal units which otherwise appear patent. Clear paranasal sinuses. Nasal septum and nasal cavities: Left-sided deviation. Anatomic variations: No significant anatomic variations. Teeth: No acute abnormality of the visualized teeth. IMPRESSION: Head CT: No intracranial abnormalities, particularly no post traumatic hemorrhage. Face CT: No acute facial fractures. Signed by: Dr. Sandie Lubin M.D. on 06/25/2019 12:11 PM Dictated By: SANDIE LUBIN MD 1211 Transcribed By: JANETTE on 06/25/19 1211 COPY TO: ADELE WALKER MD CT BRAIN WO-HOPD 2019-06-25 12:06:00 [place] [address] Patient Name: BONIFACIO GREEN SR MR #: [id number] : 1965 Age/Sex: 53/M Req #: [id number] Adm Physician: Ordered by: ADELE WALKER MD Report #: [id number] Location: [facility] Room/Bed: Procedure: HOPD/CT BRAIN WO-HOPD Exam Date: 06/25/19 Exam Time: 1120 REPORT STATUS: Signed EXAMINATION: Head and face CT without contrast. HISTORY: Status post fall, trauma trauma left sided jaw pain. COMPARISON: Maxillofacial CT 03/19/2009. TECHNIQUE: Multidetector axial images were obtained without contrast from the foramen magnum to the vertex and over the face. The images were reconstructed using brain and bone algorithms. Thin section brain images were reformatted into coronal and sagittal planes. Dose modulation, iterative reconstruction, and/or weight based adjustment of the mA/kV was utilized to reduce the radiation dose to as low as reasonably achievable. Head CT findings: Skull: No lytic or blastic lesions. No fractures. Parenchyma: Normal. No mass, hemorrhage or CT evidence of acute vascular insult. Brain volume: Normal for age. Ventricles: No hydrocephalus or displacement. Arteries: No density suggestive of thrombus. Dural sinuses: No abnormal density. Extra-axial spaces: No abnormal density. Foramen magnum: No mass, Chiari malformation, or basilar invagination. Sella: No obvious mass. Face CT findings: Bones: Unremarkable. Facial soft tissues: Unremarkable. Orbits contents: Unremarkable. Paranasal sinuses and drainage pathways: Postoperative changes in the bilateral ostiomeatal units which otherwise appear patent. Clear paranasal sinuses. Nasal septum and nasal cavities: Left-sided deviation. Anatomic variations: No significant anatomic variations. Teeth: No acute abnormality of the visualized teeth. IMPRESSION: Head CT: No intracranial abnormalities, particularly no post traumatic hemorrhage. Face CT: No acute facial fractures. Signed by: Dr. Sandie Lubin M.D. on 06/25/2019 12:11 PM Dictated By: SANDIE LUBIN MD 1211 Transcribed By: JANETTE on 06/25/19 1211 COPY TO: ADELE WALKER MD ABDOMEN-1VIEW ([facility]) 2019-03-29 10:23:00 [place] [address] Patient Name: BONIFACIO GREEN SR MR #: [id number] : 1965 Age/Sex: 53/M Req #: [id number] Adm Physician: Ordered by: JANETTE MAN MD Report #: [id number] Location: [facility] Room/Bed: Procedure: [id number] DX/ABDOMEN-1VIEW (KUB) Exam Date: 03/29/19 Exam Time: 1000 REPORT STATUS: Signed Exam: KUB - 1 Clinical History: Renal calculus. Comparison: KUB 12/21/2018, CT Abdomen/Pelvis 03/26/2018. Findings: Bowel gas partially obscures evaluation of bilateral kidneys. Punctate bilateral renal stones better characterized on CT abdomen/pelvis from 03/26/2018 are not well seen on this study. No evidence of calcification overlying the expected course of the ureters. Nonobstructive bowel gas pattern. No acute osseous abnormality. Impression: Bowel gas partially obscures evaluation of bilateral kidneys. Punctate bilateral renal stones are not well seen on this study. Signed by: Dr. Sunny Hanley MD on 03/29/2019 10:29 AM Dictated By: SUNNY HANLEY MD 1029 Transcribed By: JANETTE on 03/29/19 1029 COPY TO: JANETTE MAN MD ABDOMEN-1VIEW ([facility]) 2018-12-21 09:19:00 [place] [address] Patient Name: BONIFACIO GREEN SR MR #: [id number] : 1965 Age/Sex: 53/M Req #: [id number] Adm Physician: Ordered by: JANETTE MAN MD Report #: [id number] Location: [facility] Room/Bed: Procedure: [id number] DX/ABDOMEN-1VIEW ([facility]) Exam Date: 12/21/18 Exam Time: 0845 REPORT STATUS: Signed EXAM: ABDOMEN-1VIEW ([facility]) DATE: 12/21/2018 8:35 AM INDICATION: Kidney stone COMPARISON: KUB, 10/20/2018 FINDINGS: 2 supine views of the abdomen were obtained. There is a normal distribution of air in the small and large bowel. There is moderate retained stool in the colon. Previously noted small calcification projected on the upper pole of the right kidney is not identified on current views. However, this area is obscured by overlying bowel material and might hide a small calcification is present. No calcification is identified overlying either kidney or along the expected course of either ureter. Lung bases are clear. No acute bony abnormality. IMPRESSION: 1. No evidence for bowel dilatation or obstruction. 2. No urinary tract calcification is identified, noting that the renal areas, particularly on the right, are partially obscured by overlying bowel material. Signed by: Dr. Cody Lobo M.D. on 12/21/2018 9:23 AM Dictated By: CODY LOBO MD 2 Transcribed By: JANETTE on 12/21/18922 COPY TO: JANETTE MAN MD ABDOMEN-1VIEW ([facility]) 2018-10-20 07:50:00 [place] [address] Patient Name: BONIFACIO GREEN SR MR #: [id number] : 1965 Age/Sex: 53/M Req #: [id number] Adm Physician: Ordered by: JANETTE MAN MD Report #: [id number] Location: OR Room/Bed: Procedure: [id number] DX/ABDOMEN-1VIEW ([facility]) Exam Date: 10/20/18 Exam Time: 0657 REPORT STATUS: Signed Abdomen, one view. History: Stones. Comparison: KUB dated 10/13/2018 Findings: Small calcification overlies the upper aspect of the right kidney. The intestinal gas pattern is nonobstructive. There no masses. The osseous structures are intact. IMPRESSION: 1. No acute abdominal abnormality. 2. Calcification overlying the right kidney. Signed by: Dr. Sammy Tello DO on 10/20/2018 7:52 AM Dictated By: SAMMY TELLO DO 1 Transcribed By: JANETTE on 10/20/18751 COPY TO: JANETTE MAN MD ABDOMEN-1VIEW ([facility]) 2018-10-13 11:03:00 [place] [address] Patient Name: BONIFACIO GREEN SR MR #: [id number] : 1965 Age/Sex: 53/M Req #: [id number] Adm Physician: Ordered by: ANA RODRÍGUEZ MD Report #: [id number] Location: [facility] Room/Bed: Procedure: [id number] DX/ABDOMEN-1VIEW ([facility]UB) Exam Date: 10/13/18 Exam Time: 1045 REPORT STATUS: Signed RADIOGRAPH(S) OF THE ABDOMEN AND PELVIS, 2 view(s) HISTORY: Calculus of kidney, right side COMPARISON: CT of the abdomen and pelvis March 26, 2018. Abdominal and pelvic radiographs October 08, 2018. FINDINGS: Stool and bowel gas partially limits evaluation. The recently described 3 mm right lower kidney and 5 mm left upper kidney calcific densities are not definitely seen on this exam. A nonspecific 4 mm density projects over the region of the medial aspect of the superior aspect of the right kidney. IMPRESSION: 1. A 4 mm radiopaque density projecting in the region of the medial superior aspect of the right kidney, may reflect one of the renal calculi seen on the comparison CT. 2. Additional renal calculi and the 5 mm calculus within the left proximal ureter on the comparison CT and radiographs, are not definitively seen on these radiographs. Signed by: Roland PottsOИрина, M.M.M. on 10/13/2018 11:18 AM Dictated By: LARRY KIM DO 1118 Transcribed By: JANETTE on 10/13/18 1118 COPY TO: ANA RODRÍGUEZ MD Parathyroid Hormone 2018-10-09 22:30:00 Test Item Parathyroid Hormone (test code = 2731-8) 45 15-65 [facility] CentralCalcium (Send out)2018-10-09 22:30:00* Test Item Value Reference Range Interpretation Comments Calcium (Send out) (test code = 15154-3) 9.3 8.7-10.2 [facility] CentralParathyroid Hormone Interpretation 2018-10-09 22:30:00* Test Item Value Reference Range Interpretation Comments Parathyroid Hormone Interpretation (test code = Parathyroid Hormone Interpretation) Comment . Interpretation Intact PTH Calcium (pg/mL) (mg/dL)Normal 15 - 65 8.6 - 10.2Pr imary Hyperparathyroidism >65 >10.2Secondary Hyperparathyroidism >65 <10.2Non-Parathyroid Hypercalcemia <65 >10.2Hypoparathyroidism <15 < 8.6Non- Parathyroid Hypocalcemia 15 - 65 < 8.6Performed at: [employer] [facility] [address] [id number] Director: Ronald Nair MD, Phone: [phone] at: [place] - [facility] [address] [id number] Director: Paxton Armijo MD, Phone: [phone] Medical Center – CentralParathyroid Cxidwhv5798-95-06 22:30:00* Test Item Value Reference Range Interpretation Comments Parathyroid Hormone (test code = 2731-8) 45 15-65 [facility] CentralCalcium (Send out)2018-10-09 22:30:00* Test Item Value Reference Range Interpretation Comments Calcium (Send out) (test code = 13045-3) 9.3 8.7-10.2 [facility] CentralParathyroid Hormone Interpretation 2018-10-09 22:30:00* Test Item Value Reference Range Interpretation Comments Parathyroid Hormone Interpretation (test code = Parathyroid Hormone Interpretation) Comment . Interpretation Intact PTH Calcium (pg/mL) (mg/dL)Normal 15 - 65 8.6 - 10.2Pr imary Hyperparathyroidism >65 >10.2Secondary Hyperparathyroidism >65 <10.2Non-Parathyroid Hypercalcemia <65 >10.2Hypoparathyroidism <15 < 8.6Non- Parathyroid Hypocalcemia 15 - 65 < 8.6Performed at: [facility] [id number] Director: Ronald Nair MD, Phone: [phone] at: [employer] [address] [id number] Director: Paxton Armijo MD, Phone: [phone] Medical Center – Centralodium Jgzhg9599-64-95 14:14:00* Test Item Value Reference Range Interpretation Comments Sodium Level (test code = 2951-2) 140 136-145 [facility] CentralPotassium Fvhjo8506-43-04 14:14:00* Test Item Value Reference Range Interpretation Comments Potassium Level (test code = 2823-3) 5.3 3.5-5.1 H NO HEMOLYSIS PRESENTMidCoast Medical Center – CentralChloride Level 2018-10-08 14:14:00* Test Item Value Reference Range Interpretation Comments Chloride Level (test code = 2075-0) 102 98-107 [facility] CentralCarbon Dioxide Nfzsf3544-47-63 14:14:00* Test Item Value Reference Range Interpretation Comments Carbon Dioxide Level (test code = 2028-9) 27 22-29 [facility] CentralAnion Elz6129-09-68 14:14:00* Test Item Value Reference Range Interpretation Comments Anion Gap (test code = 93845-7) 16.3 8-16 H [facility] CentralBlood Urea Ctsgomtl2196-64-72 14:14:00* Test Item Value Reference Range Interpretation Comments Blood Urea Nitrogen (test code = 3094-0) 13 7-26 [facility] CentralCreatinine2018-12-07 14:14:00* Test Item Value Reference Range Interpretation Comments Creatinine (test code = 2160-0) 1.09 0.72-1.25 [facility] CentralBUN/Creatinine Xhysd8730-68-64 14:14:00* Test Item Value Reference Range Interpretation Comments BUN/Creatinine Ratio (test code = 3097-3) 12 6- [facility] CentralEstimat Glomerular Filtration Rate 2018-10-08 14:14:00* Test Item Value Reference Range Interpretation Comments Estimat Glomerular Filtration Rate (test code = 839715375) > 60 >60 Ranges were taken from the National Kidney Disease Education Program and the [employer] [facility] [employer] literature.Reference ranges:60 or greater: Etadyk23-90 ( for 3 consecutive months): Chronic kidney disease 15 or less: Kidney failureMidCoast Medical Center – CentralGlucose Nimfm5137-45-91 14:14:00* Test Item Value Reference Range Interpretation Comments Glucose Level (test code = SJM7901) 110 74-118 [facility] CentralCalcium Ctlhx4756-48-43 14:14:00* Test Item Value Reference Range Interpretation Comments Calcium Level (test code = 12728-9) 9.2 8.4-10.2 [facility] CentralUric Qfzn8649-82-81 14:14:00* Test Item Value Reference Range Interpretation Comments Uric Acid (test code = 3084-1) 5.2 4.8-8.0 [facility] CentralTotal Xrwiyqdug2455-69-85 14:14:00* Test Item Value Reference Range Interpretation Comments Total Bilirubin (test code = 1975-2) 0.4 0.2-1.2 [facility] CentralAspartate Amino Transf (AST/SGOT) 2018-10-08 14:14:00* Test Item Value Reference Range Interpretation Comments Aspartate Amino Transf (AST/SGOT) (test code = Aspartate Amino Transf (AST/SGOT)) 24 5-34 [facility] CentralAlanine Aminotransferase (ALT/SGPT) 2018-10-08 14:14:00* Test Item Value Reference Range Interpretation Comments Alanine Aminotransferase (ALT/SGPT) (test code = 1742-6) 14 0-55 [facility] CentralTotal Ydoisdn4202-20-42 14:14:00* Test Item Value Reference Range Interpretation Comments Total Protein (test code = 2885-2) 6.8 6.5-8.1 [facility] CentralAlbumin2018-12-07 14:14:00* Test Item Value Reference Range Interpretation Comments Albumin (test code = 1751-7) 3.8 3.5-5.0 [facility] CentralGlobulin2018-12-07 14:14:00* Test Item Value Reference Range Interpretation Comments Globulin (test code = 95471-9) 3.0 2.3-3.5 [facility] CentralAlbumin/Globulin Udrqs8504-06-37 14:14:00 * Test Item Value Reference Range Interpretation Comments Albumin/Globulin Ratio (test code = 1759-0) 1.3 0.8-2.0 [facility] CentralAlkaline Gmfaqkmdjrs7397-23-68 14:14:00* Test Item Value Reference Range Interpretation Comments Alkaline Phosphatase (test code = 6768-6) 76 40-150 [facility] Centralodium Juexr1723-64-90 14:14:00* Test Item Value Reference Range Interpretation Comments Sodium Level (test code = 2951-2) 140 136-145 [facility] CentralPotassium Uhfwt0383-76-37 14:14:00* Test Item Value Reference Range Interpretation Comments Potassium Level (test code = 2823-3) 5.3 3.5-5.1 H NO HEMOLYSIS PRESENTMidCoast Medical Center – CentralChloride Level 2018-10-08 14:14:00* Test Item Value Reference Range Interpretation Comments Chloride Level (test code = 2075-0) 102 98-107 [facility] CentralCarbon Dioxide Bzogp7108-51-58 14:14:00* Test Item Value Reference Range Interpretation Comments Carbon Dioxide Level (test code = 2028-9) 27 22-29 [facility] CentralAnion Hoa9232-14-35 14:14:00* Test Item Value Reference Range Interpretation Comments Anion Gap (test code = 62548-8) 16.3 8-16 H [facility] CentralBlood Urea Zingycro3468-98-52 14:14:00* Test Item Value Reference Range Interpretation Comments Blood Urea Nitrogen (test code = 3094-0) 13 7-26 [facility] CentralCreatinine2018-12-07 14:14:00* Test Item Value Reference Range Interpretation Comments Creatinine (test code = 2160-0) 1.09 0.72-1.25 [facility] CentralBUN/Creatinine Ixggo6737-93-39 14:14:00* Test Item Value Reference Range Interpretation Comments BUN/Creatinine Ratio (test code = 3097-3) 12 6-25 [facility] CentralEstimat Glomerular Filtration Rate 2018-10-08 14:14:00* Test Item Value Reference Range Interpretation Comments Estimat Glomerular Filtration Rate (test code = 369576893) > 60 >60 Ranges were taken from the National Kidney Disease Education Program and the [employer] [facility] [employer] [employer] literature.Reference ranges:60 or greater: Wjhsoz38-13 ( for 3 consecutive months): Chronic kidney disease 15 or less: Kidney failureMidCoast Medical Center – CentralGlucose Xneic9729-84-50 14:14:00* Test Item Value Reference Range Interpretation Comments Glucose Level (test code = YWH8726) 110 74-118 [facility] CentralCalcium Dgtsp9017-15-96 14:14:00* Test Item Value Reference Range Interpretation Comments Calcium Level (test code = 39823-7) 9.2 8.4-10.2 [facility] CentralUric Wjvi4617-10-46 14:14:00* Test Item Value Reference Range Interpretation Comments Uric Acid (test code = 3084-1) 5.2 4.8-8.0 [facility] CentralTotal Lpnbkzfeo6145-00-46 14:14:00* Test Item Value Reference Range Interpretation Comments Total Bilirubin (test code = 1975-2) 0.4 0.2-1.2 [facility] CentralAspartate Amino Transf (AST/SGOT) 2018-10-08 14:14:00* Test Item Value Reference Range Interpretation Comments Aspartate Amino Transf (AST/SGOT) (test code = Aspartate Amino Transf (AST/SGOT)) 24 5-34 [facility] CentralAlanine Aminotransferase (ALT/SGPT) 2018-10-08 14:14:00* Test Item Value Reference Range Interpretation Comments Alanine Aminotransferase (ALT/SGPT) (test code = 1742-6) 14 0-55 [facility] Rapozsc8154-54-88 14:14:00* Test Item Value Reference Range Interpretation Comments Total Protein (test code = 2885-2) 6.8 6.5-8.1 [facility] CentralAlbumin2018-12-07 14:14:00* Test Item Value Reference Range Interpretation Comments Albumin (test code = 1751-7) 3.8 3.5-5.0 [facility] CentralGlobulin2018-12-07 14:14:00* Test Item Value Reference Range Interpretation Comments Globulin (test code = 66868-8) 3.0 2.3-3.5 [facility] CentralAlbumin/Globulin Jgrtj3539-42-28 14:14:00 * Test Item Value Reference Range Interpretation Comments Albumin/Globulin Ratio (test code = 1759-0) 1.3 0.8-2.0 [facility] CentralAlkaline Fqtujupuitr4249-09-86 14:14:00* Test Item Value Reference Range Interpretation Comments Alkaline Phosphatase (test code = 6768-6) 76 40-150 [facility] CentralWhite Blood Qsooc1795-03-54 13:51:00* Test Item Value Reference Range Interpretation Comments White Blood Count (test code = 6690-2) 9.36 4.8-10.8 [facility] CentralRed Blood Isjnt0733-54-61 13:51:00* Test Item Value Reference Range Interpretation Comments Red Blood Count (test code = 789-8) 4.25 4.3-5.7 L [facility] CentralHemoglobin2018-12-07 13:51:00* Test Item Value Reference Range Interpretation Comments Hemoglobin (test code = 74808-3) 14.3 14.0-18.0 [facility] CentralHematocrit2018-12-07 13:51:00* Test Item Value Reference Range Interpretation Comments Hematocrit (test code = 4544-3) 41.6 38.2-49.6 [facility] CentralMean Corpuscular Wvxdtj6716-02-51 13:51:00* Test Item Value Reference Range Interpretation Comments Mean Corpuscular Volume (test code = 787-2) 97.9 81-99 [facility] CentralMean Corpuscular Tllzwyxzsr3683-42-81 13:51:00* Test Item Value Reference Range Interpretation Comments Mean Corpuscular Hemoglobin (test code = 785-6) 33.6 28-32 H [facility] CentralMean Corpuscular Hemoglobin Concent 2018-10-08 13:51:00* Test Item Value Reference Range Interpretation Comments Mean Corpuscular Hemoglobin Concent (test code = 786-4) 34.4 31-35 [facility] CentralRed Cell Distribution Jilua4424-60-38 13:51:00* Test Item Value Reference Range Interpretation Comments Red Cell Distribution Width (test code = 38826-9) 12.3 11.7 -14.4 [facility] CentralPlatelet Dvksx1075-79-08 13:51:00* Test Item Value Reference Range Interpretation Comments Platelet Count (test code = 777-3) 281 140-360 [facility] CentralNeutrophils (%) (Auto)2018-10-08 13:51:00 * Test Item Value Reference Range Interpretation Comments Neutrophils (%) (Auto) (test code = 44733-4) 83.0 38.7-80.0 H [facility] CentralLymphocytes (%) (Auto)2018-10-08 13:51:00 * Test Item Value Reference Range Interpretation Comments Lymphocytes (%) (Auto) (test code = 736-9) 11.5 18.0-39.1 L [facility] CentralMonocytes (%) (Auto)2018-10-08 13:51:00* Test Item Value Reference Range Interpretation Comments Monocytes (%) (Auto) (test code = 5905-5) 4.5 4.4-11.3 [facility] CentralEosinophils (%) (Auto)2018-10-08 13:51:00 * Test Item Value Reference Range Interpretation Comments Eosinophils (%) (Auto) (test code = 713-8) 0.2 0.0-6.0 [facility] CentralBasophils (%) (Auto)2018-10-08 13:51:00* Test Item Value Reference Range Interpretation Comments Basophils (%) (Auto) (test code = 706-2) 0.3 0.0-1.0 [facility] CentralIM GRANULOCYTES %2018-10-08 13:51:00* Test Item Value Reference Range Interpretation Comments IM GRANULOCYTES % (test code = IM GRANULOCYTES %) 0.5 0.0- 1.0 [facility] CentralNeutrophils # (Auto)2018-10-08 13:51:00* Test Item Value Reference Range Interpretation Comments Neutrophils # (Auto) (test code = 751-8) 7.8 2.1-6.9 H [facility] CentralLymphocytes # (Auto)2018-10-08 13:51:00* Test Item Value Reference Range Interpretation Comments Lymphocytes # (Auto) (test code = 90356-6) 1.1 1.0-3.2 [facility] CentralMonocytes # (Auto)2018-10-08 13:51:00* Test Item Value Reference Range Interpretation Comments Monocytes # (Auto) (test code = 742-7) 0.4 0.2-0.8 [facility] CentralEosinophils # (Auto)2018-10-08 13:51:00* Test Item Value Reference Range Interpretation Comments Eosinophils # (Auto) (test code = 711-2) 0.0 0.0-0.4 [facility] CentralBasophils # (Auto)2018-10-08 13:51:00* Test Item Value Reference Range Interpretation Comments Basophils # (Auto) (test code = 704-7) 0.0 0.0-0.1 [facility] CentralAbsolute Immature Granulocyte (auto 2018-10-08 13:51:00* Test Item Value Reference Range Interpretation Comments Absolute Immature Granulocyte (auto (jagruti t code = Absolute Immature Granulocyte (auto) 0.05 0-0.1 [facility] CentralWhite Blood Kulxp9879-29-62 13:51:00* Test Item Value Reference Range Interpretation Comments White Blood Count (test code = 6690-2) 9.36 4.8-10.8 [facility] CentralRed Blood Agiqn8020-98-70 13:51:00* Test Item Value Reference Range Interpretation Comments Red Blood Count (test code = 789-8) 4.25 4.3-5.7 L [facility] CentralHemoglobin2018-12-07 13:51:00* Test Item Value Reference Range Interpretation Comments Hemoglobin (test code = 61529-0) 14.3 14.0-18.0 [facility] CentralHematocrit2018-12-07 13:51:00* Test Item Value Reference Range Interpretation Comments Hematocrit (test code = 4544-3) 41.6 38.2-49.6 [facility] CentralMean Corpuscular Nwsdmr9667-95-72 13:51:00* Test Item Value Reference Range Interpretation Comments Mean Corpuscular Volume (test code = 787-2) 97.9 81-99 [facility] CentralMean Corpuscular Goubxfoghv2508-54-97 13:51:00* Test Item Value Reference Range Interpretation Comments Mean Corpuscular Hemoglobin (test code = 785-6) 33.6 28-32 H [facility] CentralMean Corpuscular Hemoglobin Concent 2018-10-08 13:51:00* Test Item Value Reference Range Interpretation Comments Mean Corpuscular Hemoglobin Concent (test code = 786-4) 34.4 31-35 [facility] CentralRed Cell Distribution Vfzco0565-17-30 13:51:00* Test Item Value Reference Range Interpretation Comments Red Cell Distribution Width (test code = 63851-8) 12.3 11.7 -14.4 [facility] CentralPlatelet Vwbap2543-63-41 13:51:00* Test Item Value Reference Range Interpretation Comments Platelet Count (test code = 777-3) 281 140-360 [facility] CentralNeutrophils (%) (Auto)2018-10-08 13:51:00 * Test Item Value Reference Range Interpretation Comments Neutrophils (%) (Auto) (test code = 91026-0) 83.0 38.7-80.0 H [facility] CentralLymphocytes (%) (Auto)2018-10-08 13:51:00 * Test Item Value Reference Range Interpretation Comments Lymphocytes (%) (Auto) (test code = 736-9) 11.5 18.0-39.1 L [facility] CentralMonocytes (%) (Auto)2018-10-08 13:51:00* Test Item Value Reference Range Interpretation Comments Monocytes (%) (Auto) (test code = 5905-5) 4.5 4.4-11.3 [facility] CentralEosinophils (%) (Auto)2018-10-08 13:51:00 * Test Item Value Reference Range Interpretation Comments Eosinophils (%) (Auto) (test code = 713-8) 0.2 0.0-6.0 [facility] CentralBasophils (%) (Auto)2018-10-08 13:51:00* Test Item Value Reference Range Interpretation Comments Basophils (%) (Auto) (test code = 706-2) 0.3 0.0-1.0 [facility] CentralIM GRANULOCYTES %2018-10-08 13:51:00* Test Item Value Reference Range Interpretation Comments IM GRANULOCYTES % (test code = IM GRANULOCYTES %) 0.5 0.0- 1.0 [facility] CentralNeutrophils # (Auto)2018-10-08 13:51:00* Test Item Value Reference Range Interpretation Comments Neutrophils # (Auto) (test code = 751-8) 7.8 2.1-6.9 H [facility] CentralLymphocytes # (Auto)2018-10-08 13:51:00* Test Item Value Reference Range Interpretation Comments Lymphocytes # (Auto) (test code = 89266-7) 1.1 1.0-3.2 [facility] CentralMonocytes # (Auto)2018-10-08 13:51:00* Test Item Value Reference Range Interpretation Comments Monocytes # (Auto) (test code = 742-7) 0.4 0.2-0.8 [facility] CentralEosinophils # (Auto)2018-10-08 13:51:00* Test Item Value Reference Range Interpretation Comments Eosinophils # (Auto) (test code = 711-2) 0.0 0.0-0.4 [facility] CentralBasophils # (Auto)2018-10-08 13:51:00* Test Item Value Reference Range Interpretation Comments Basophils # (Auto) (test code = 704-7) 0.0 0.0-0.1 [facility] CentralAbsolute Immature Granulocyte (auto 2018-10-08 13:51:00* Test Item Value Reference Range Interpretation Comments Absolute Immature Granulocyte (auto (jagruti t code = Absolute Immature Granulocyte (auto) 0.05 0-0.1 [facility] CentralABDOMEN-1VIEW (KUB)2018-10-08 12:28:00 [place] [address] Patient Name: BONIFACIO GREEN SR MR #: [id number] : 1965 Age/Sex: 53/M Req #: [id number] Adm Physician: Ordered by: JANETTE MAN MD Report #: [id number] Location: OR Room/Bed: Procedure: 1207 -0033 DX/ABDOMEN-1VIEW (KUB) Exam Date: 10/08/18 Speedy m Time: 1110 REPORT STATUS: Signed EXAM: ABDOMEN-1VIEW (KUB), supine COMPARISON: CT Abdomen 03/26/18, KUB . FINDINGS: Bowel contents obscures visualization of both kidneys. T here is a 3 mm calcification projecting over the right lower kidney and a 5 mm calcification projecting over the left upper kidney. Additional calcifications noted on prior KUB are not well seen on this study. No calcifications are seen overlying the expected location of the ureters. Non-obstructive bowel gas pattern. No free intraperitoneal air. No acute bony findings. Degenerative changes in the lower lumbar spine. IMPRESSION: Bilateral kidneys somewh at obscured by overlying bowel gas. A 3 mm calcification projecting over the r ight lower kidney and a 5 mm calcification projecting over the left upper kidn eys, may represent stones. Additional previously seen renal calcifications are not well visualized on this study. Signed by: Dr. Sunny Hanley MD on 018 12:35 PM Dictated By: SUNNY HANLEY MD 1235 Transcribed By: JANETTE on 10/08/18 1235 COPY TO: JANETTE MAN MD SP LUMBAR, COMPLETE MIN 2MC9401-67-13 17:20:00 [place] [address] Patient Name: BONIFACIO GREEN SR MR #: [id number] : 1965 Age/Sex: 53/M Req #: [id number] Adm Physician: Ordered by: ANA RODRÍGUEZ MD Report #: [id number] Location: [facility] Room/Bed: Procedure: DX/SP LUMBAR, COMPLETE MIN 4VW Exam Date: 10/07/18 Exam Time: 1630 REPORT STATU S: Signed Lumbar Spine Radiographs: 5 views HISTORY: Pain COM PARISON: None available. DISCUSSION: There are five non-rib bearing lumba r vertebral bodies. The alignment of the spine is within normal limits. N o displaced fracture or compression deformity is identified. The disc spaces a re well maintained. Mild bilateral facet arthropathy bilaterally L4-L5 and L5- S1. Punctate calcific density projected on the right flank medially suggestive of renal calculus. IMPRESSION: Mild bilateral facet arthropathy bilate rally L4-L5 and L5-S1. Signed by: Dr. Meron Fatima M.D. on 10/07/20 18 5:23 PM Dictated By: CARLA FATIMA MD, MD 22 Transcribed By: JANETTE on 10/07/181722 COPY TO: ANA RODRÍGUEZ MD [facility] 2 UBKMV5524-46-82 17:18:00 [place] [address] Patient Name: BONIFACIO GREEN SR MR #: [id number] : 1965 Age/Sex: 53/M Req #: [id number] Adm Physician: Ordered by: JANETTE MAN MD Report #: [id number] Location: OR Room/Bed: Procedure: 1206 -0049 DX/CHEST 2 VIEWS Exam Date: 10/07/18 Exam Time : 1630 REPORT STATUS: Signed EXA MINATION: CHEST 2 VIEWS INDICATION: Pre-operative. COMPARISON: 07/08/2016. FINDINGS: TUBES and LINES: None. LUNGS: Lungs are w ell inflated. Lungs are clear. There is no evidence of pneumonia or pulmona ry edema. PLEURA: No pleural effusion or pneumothorax. Bicycle pleural sca rring. HEART AND MEDIASTINUM: The cardiomediastinal silhouette is unremark able. BONES AND SOFT TISSUES: No acute osseous lesion. Soft tissues are unremarkable. UPPER ABDOMEN: No free air under the diaphragm. IM PRESSION: No acute thoracic abnormality. Signed by: Dr. Meron Fatima M.D. on 10/07/2018 5:20 PM Dictated By: CARLA FATIMA MD, MD Terri ctronically Signed By: CARLA FATIMA MD, MD on 10/07/181719 Transcribed By: JULIO MERCHANT on 10/07/181719 COPY TO: JANETTE MAN MD ABDOMEN-1VIEW (KUB) 2018-07-08 11:50:00 [place] [address] Patient Name: BONIFACIO GREEN MR #: [id number] : 1965 Age/Sex: 52/M Req #: [id number] Adm Physician: Ordered by: JANETTE MAN MD Report #: [id number] Location: [facility] Room/Bed: Procedure: DX/ABDOMEN-1VIEW (KUB) Exam Date: 07/08/18 Exam Time: 1112 REPORT STATUS: S igned EXAM: ABDOMEN-2 VIEWS (KUB), supine INDICATION: Renal calculus COM PARISON: KUB 03/27/[address] Abdomen 03/26/18. FINDINGS: Bowel contents obs cures visualization of both kidneys. There are 3 mm and 4 mm calcifications wh ich project over the right kidney and a 6 mm calcification which projects over the left mid kidney. Non-obstructive bowel gas pattern. No free intraperitone al air. No acute bony findings. Degenerative changes in the lower lumbar spine . IMPRESSION: Right renal calcifications measuring 3-4 mm and and left r enal calcification measuring 6 mm may represent stones, although are obscured by overlying bowel contents. Signed by: Dr. Sunny Hanley MD on 8 12:00 PM Dictated By: SUNNY HANLEY MD 1200 Transcribed By: JANETTE on 07/08/18 1200 COPY TO: JANETTE MAN MD ABDOMEN-1VIEW (KUB)2018-06-11 07:28:00 [place] [address] Patient Name: BONIFACIO GREEN MR #: [id number] : 1965 Age/Sex: 52/M Req #: [id number] Adm Physician: Ordered by: JANETTE MAN MD Report #: [id number] Location: OR Room/Bed: Procedure: [id number] DX/ABDOMEN-1VIEW (KUB) Exam D ate: 06/11/18 Exam Time: 0650 REPORT STATUS: Si gned PROCEDURE: X-RAY ABDOMEN - KUB COMPARISON: KUB 05/11/18. INDICATIONS: PREOPERATIVE XRAY FOR ESWL FINDINGS: Again noted is a 3-4 mm calculus projecting over the upper pole of the right kidney. No evidence of calcification overlying the ureters. Non-obstructive bowel gas pattern. No acute bony findings. CONCLUSION: Unchanged 3-4 mm right upper pole claudio al calculus. Dictated by: SUNNY HANLEY M.D. on 06/11/2018 at 7:28 Electronically approved by: SUNNY HANLEY M.D. on 06/11/2018 at 7:28 Dictated By: SUNNY HANLEY MD 7 COPY TO: JANETTE MAN MD ABDOMEN-1VIEW (KUB)2018-05-12 08:11:00 [place] [address] Patient Name: BONIFACIO GREEN MR #: [id number] : 1965 Age/Sex: 52/M Req #: [id number] Adm Physician: Ordered by: JANETTE MAN MD Report #: [id number] Location: OR Room/Bed: Procedure: [id number] DX/ABDOMEN-1VIEW (KUB) Exam D ate: 05/12/18 Exam Time: 0725 REPORT STATUS: Si gned PROCEDURE: X-RAY ABDOMEN - KUB COMPARISON: 04/29/2018 INDICAT IONS: PRE OP KUB FINDINGS: No interval change in 3-4 mm calculus pr ojecting over the upper pole of the right kidney. No calculi project over the expected ureteral courses. Bowel gas pattern remains nonobstructive. R egional skeletal structures are intact. CONCLUSION: Unchanged 3-4 mm r ight upper pole renal calculus. Dictated by: Isaiah Sales M.D. on 05/12/2018 a t 8:11 Electronically approved by: Isaiah Sales M.D. on 05/12/2018 at 8:11 Dictated By: ISAIAH SALES MD 0 Transcribed By: XIN on 05/12/18810 COPY TO: JANETTE MAN MD ABDOMEN-1VIEW (KUB)2018-04-29 09:52:00 [place] [address] Patient Name: BONIFACIO GREEN MR #: [id number] : 1965 Age/Sex: 52/M Req #: [id number] Adm Physician: Ordered by: JANETTE MAN MD Report #: [id number] Location: [facility] Room/Bed: Procedure: [id number] DX/ABDOMEN-1VIEW (KUB) Exam Date: 04/29/18 Exam Time: 914 REPORT STATUS: S igned PROCEDURE: X-RAY ABDOMEN - KUB COMPARISON: 03/27/2018, CT abdo men and pelvis without contrast 03/26/2018. INDICATIONS: KIDNEY STONES FINDINGS: Bowel gas pattern shows no dilated, air-filled loops of gabe wel. 3-4 mm calcification is identified projecting over the medial upper pole of the right renal shadow. Additional small calculi identified within both kidneys on the comparison CT are poorly visualized by plain radiography. Regional skeletal structures are intact. Lung bases are clear. CON CLUSION: 3-4 mm right upper pole renal calculus. Additional small bilateral renal calculi described on the comparison CT 03/26/2018 are poorly visuali zed by plain radiography. Dictated by: Isaiah Sales M.D. on 04/29/2018 at 9:52 Electronically approved by: Isaiah Sales M.D. on 04/29/2018 at 9:52 Dictated By: ISAIAH SALES MD 1 Transcribed By: XIN on 04/29/18951 COPY TO: JANETTE JUSTICE MD Urine Rzzoqdy3035-25-21 07:01:00* Test Item Value Reference Range Interpretation Comments Urine Culture (test code = 630-4) Organism: ESCHERICHIA COLI [facility] Agsuq9523-82-20 07:51:00* Test Item Value Reference Range Interpretation Comments Sodium Level (test code = 2951-2) 136 136-145 [facility] CentralPotassium Lubnq2456-39-94 07:51:00* Test Item Value Reference Range Interpretation Comments Potassium Level (test code = 2823-3) 3.9 3.5-5.1 [facility] CentralChloride Pmqvc5097-53-92 07:51:00* Test Item Value Reference Range Interpretation Comments Chloride Level (test code = 2075-0) 105 98-107 [facility] CentralCarbon Dioxide Fieew0795-28-65 07:51:00* Test Item Value Reference Range Interpretation Comments Carbon Dioxide Level (test code = 2028-9) 23 22-29 [facility] CentralAnion Lwc1453-29-71 07:51:00* Test Item Value Reference Range Interpretation Comments Anion Gap (test code = 67908-3) 11.9 8-16 [facility] CentralBlood Urea Geibgokn5518-20-09 07:51:00* Test Item Value Reference Range Interpretation Comments Blood Urea Nitrogen (test code = 3094-0) 23 7-26 [facility] CentralCreatinine2018-05-27 07:51:00* Test Item Value Reference Range Interpretation Comments Creatinine (test code = 2160-0) 1.74 0.72-1.25 H [facility] CentralBUN/Creatinine Zkbjp2280-64-54 07:51:00* Test Item Value Reference Range Interpretation Comments BUN/Creatinine Ratio (test code = 3097-3) 13 6-25 [facility] CentralEstimat Glomerular Filtration Rate 2018-03-28 07:51:00* Test Item Value Reference Range Interpretation Comments Estimat Glomerular Filtration Rate (test code = 37969-3) 41 >60 L Ranges were taken from the National Kidney Disease Education Program and the [facility] Kidney Foundation literature.Reference ranges:60 or greater: Zabnnq22-89 ( for 3 consecutive months): Chronic kidney disease 15 or less: Kidney failureMid[facility] – CentralGlucose Oraed9706-26-78 07:51:00* Test Item Value Reference Range Interpretation Comments Glucose Level (test code = LLP6495) 97 74-118 [facility] CentralCalcium Hspfs6309-50-08 07:51:00* Test Item Value Reference Range Interpretation Comments Calcium Level (test code = 01685-2) 8.3 8.4-10.2 L [facility] CentralWhite Blood Hpypp9668-59-02 07:28:00* Test Item Value Reference Range Interpretation Comments White Blood Count (test code = 6690-2) 8.82 4.8-10.8 [facility] CentralRed Blood Ivicl4399-98-90 07:28:00* Test Item Value Reference Range Interpretation Comments Red Blood Count (test code = 789-8) 4.34 4.3-5.7 [facility] CentralHemoglobin2018-05-27 07:28:00* Test Item Value Reference Range Interpretation Comments Hemoglobin (test code = 88334-2) 14.1 14.0-18.0 [facility] CentralHematocrit2018-05-27 07:28:00* Test Item Value Reference Range Interpretation Comments Hematocrit (test code = 4544-3) 42.9 38.2-49.6 [facility] CentralMean Corpuscular Mkoyfe0857-43-56 07:28:00* Test Item Value Reference Range Interpretation Comments Mean Corpuscular Volume (test code = 787-2) 98.8 81-99 [facility] CentralMean Corpuscular Vuybgoiiyk2292-39-46 07:28:00* Test Item Value Reference Range Interpretation Comments Mean Corpuscular Hemoglobin (test code = 785-6) 32.5 28-32 H [facility] CentralMean Corpuscular Hemoglobin Concent 2018-03-28 07:28:00* Test Item Value Reference Range Interpretation Comments Mean Corpuscular Hemoglobin Concent (test code = 786-4) 32.9 31-35 [facility] CentralRed Cell Distribution Ytkqd0334-19-00 07:28:00* Test Item Value Reference Range Interpretation Comments Red Cell Distribution Width (test code = 55623-4) 13.0 11.7 -14.4 [facility] CentralPlatelet Rnlst6384-87-35 07:28:00* Test Item Value Reference Range Interpretation Comments Platelet Count (test code = 777-3) 159 140-360 [facility] CentralNeutrophils (%) (Auto)2018-03-28 07:28:00 * Test Item Value Reference Range Interpretation Comments Neutrophils (%) (Auto) (test code = 29532-0) 76.8 38.7-80.0 [facility] CentralLymphocytes (%) (Auto)2018-03-28 07:28:00 * Test Item Value Reference Range Interpretation Comments Lymphocytes (%) (Auto) (test code = 736-9) 13.9 18.0-39.1 L [facility] CentralMonocytes (%) (Auto)2018-03-28 07:28:00* Test Item Value Reference Range Interpretation Comments Monocytes (%) (Auto) (test code = 5905-5) 7.8 4.4-11.3 [facility] CentralEosinophils (%) (Auto)2018-03-28 07:28:00 * Test Item Value Reference Range Interpretation Comments Eosinophils (%) (Auto) (test code = 713-8) 0.7 0.0-6.0 [facility] CentralBasophils (%) (Auto)2018-03-28 07:28:00* Test Item Value Reference Range Interpretation Comments Basophils (%) (Auto) (test code = 706-2) 0.2 0.0-1.0 [facility] CentralIM GRANULOCYTES %2018-03-28 07:28:00* Test Item Value Reference Range Interpretation Comments IM GRANULOCYTES % (test code = IM GRANULOCYTES %) 0.6 0.0- 1.0 [facility] CentralNeutrophils # (Auto)2018-03-28 07:28:00* Test Item Value Reference Range Interpretation Comments Neutrophils # (Auto) (test code = 751-8) 6.8 2.1-6.9 [facility] CentralLymphocytes # (Auto)2018-03-28 07:28:00* Test Item Value Reference Range Interpretation Comments Lymphocytes # (Auto) (test code = 77986-6) 1.2 1.0-3.2 [facility] CentralMonocytes # (Auto)2018-03-28 07:28:00* Test Item Value Reference Range Interpretation Comments Monocytes # (Auto) (test code = 742-7) 0.7 0.2-0.8 [facility] CentralEosinophils # (Auto)2018-03-28 07:28:00* Test Item Value Reference Range Interpretation Comments Eosinophils # (Auto) (test code = 711-2) 0.1 0.0-0.4 [facility] CentralBasophils # (Auto)2018-03-28 07:28:00* Test Item Value Reference Range Interpretation Comments Basophils # (Auto) (test code = 704-7) 0.0 0.0-0.1 [facility] CentralAbsolute Immature Granulocyte (auto 2018-03-28 07:28:00* Test Item Value Reference Range Interpretation Comments Absolute Immature Granulocyte (auto (jagruti t code = Absolute Immature Granulocyte (auto) 0.05 0-0.1 [facility] CentralTotal Blsbohmvk6036-65-87 07:34:00* Test Item Value Reference Range Interpretation Comments Total Bilirubin (test code = 1975-2) 0.7 0.2-1.2 [facility] CentralAspartate Amino Transf (AST/SGOT) 2018-03-27 07:34:00* Test Item Value Reference Range Interpretation Comments Aspartate Amino Transf (AST/SGOT) (test code = Aspartate Amino Transf (AST/SGOT)) 19 5-34 [facility] CentralAlanine Aminotransferase (ALT/SGPT) 2018-03-27 07:34:00* Test Item Value Reference Range Interpretation Comments Alanine Aminotransferase (ALT/SGPT) (test code = 1742-6) 14 0-55 [facility] CentralTotal Uqjywqq4961-40-90 07:34:00* Test Item Value Reference Range Interpretation Comments Total Protein (test code = 2885-2) 5.9 6.5-8.1 L [facility] CentralAlbumin2018-05-26 07:34:00* Test Item Value Reference Range Interpretation Comments Albumin (test code = 1751-7) 3.5 3.5-5.0 [facility] CentralGlobulin2018-05-26 07:34:00* Test Item Value Reference Range Interpretation Comments Globulin (test code = 13378-2) 2.4 2.3-3.5 [facility] CentralAlbumin/Globulin Yuudv9690-00-79 07:34:00 * Test Item Value Reference Range Interpretation Comments Albumin/Globulin Ratio (test code = 1759-0) 1.5 0.8-2.0 [facility] CentralAlkaline Toaxdcighze6807-03-93 07:34:00* Test Item Value Reference Range Interpretation Comments Alkaline Phosphatase (test code = 6768-6) 48 40-150 [facility] CentralUrine YPF5830-06-90 01:54:00* Test Item Value Reference Range Interpretation Comments Urine WBC (test code = 5821-4) 0-5 0-5 [facility] CentralUrine ZPW4287-96-02 01:54:00* Test Item Value Reference Range Interpretation Comments Urine RBC (test code = 95560-3) 6-10 0-5 H [facility] CentralUrine Nybmrnqv0537-71-32 01:54:00* Test Item Value Reference Range Interpretation Comments Urine Bacteria (test code = 40290-2) RARE NONE [facility] CentralUrine Epithelial Dhvuh9959-76-46 01:54:00 * Test Item Value Reference Range Interpretation Comments Urine Epithelial Cells (test code = 90359-6) RARE NONE [facility] CentralUrine Pxcwk4198-50-70 01:54:00* Test Item Value Reference Range Interpretation Comments Urine Mucus (test code = 8247-9) MANY RARE H [facility] CentralUrine Wxfhe4139-54-25 01:43:00* Test Item Value Reference Range Interpretation Comments Urine Color (test code = 5778-6) YELLOW YELLOW DARK YELLOWMidCoast Medical Center – CentralUrine Iqwjscz3030-82-23 01:43:00* Test Item Value Reference Range Interpretation Comments Urine Clarity (test code = 96025-9) HAZY CLEAR [facility] Specific Otgjene3779-33-08 01:43:00 * Test Item Value Reference Range Interpretation Comments Urine Specific [place] (test code = 5811-5) 1.030 1.010-1.02 5 H [facility] CentralUrine aI4011-04-82 01:43:00* Test Item Value Reference Range Interpretation Comments Urine pH (test code = 42031-2) 6 5-7 [facility] Central[facility] Leukocyte Ipvsuzpx8625-22-11 01:43:00* Test Item Value Reference Range Interpretation Comments Urine Leukocyte Esterase (test code = 5799-2) NEGATIVE NEGATIVE [facility] CentralUrine Kljyuox1989-61-62 01:43:00* Test Item Value Reference Range Interpretation Comments Urine Nitrite (test code = 82045-7) NEGATIVE NEGATIVE [facility] CentralUrine Fcfsfiv2664-15-52 01:43:00* Test Item Value Reference Range Interpretation Comments Urine Protein (test code = 5804-0) TRACE NEGATIVE H [facility] CentralUrine Glucose (UA)2018-03-27 01:43:00* Test Item Value Reference Range Interpretation Comments Urine Glucose (UA) (test code = 2349-9) NEGATIVE NEGATIVE [facility] CentralUrine Qjgndol0217-10-34 01:43:00* Test Item Value Reference Range Interpretation Comments Urine Ketones (test code = 40581-1) NEGATIVE NEGATIVE [facility] CentralU[facility] Opiokmhnqero0155-55-73 01:43:00* Test Item Value Reference Range Interpretation Comments Urine Urobilinogen (test code = 97364-0) 0.2 0.2-1 [facility] Dawdcwier2286-44-47 01:43:00* Test Item Value Reference Range Interpretation Comments Urine Bilirubin (test code = 1978-6) NEGATIVE NEGATIVE [facility] Hwems9030-46-82 01:43:00* Test Item Value Reference Range Interpretation Comments Urine Blood (test code = 95070-3) NEGATIVE NEGATIVE [facility] [place] [address] Patient Name: BONIFACIO GREEN MR #: [id number] : 1965 Age/Sex: 52/M Req #: [id number] Adm Physician: ANA RODRÍGUEZ MD Ordered by: STEVE WASSERMAN MD Report #: [id number] Location: MED/SURG Room/Bed: [facility] Procedure: [id number] DX/ABDOMEN-1VIEW (KUB) Exam Date: 03/27/18 Exam Time : 1755 REPORT STATUS: Signed EXAM: ABDOMEN-1VIEW (KUB), supine INDIC ATION: Follow-up stone COMPARISON: None FINDINGS: LINES/TUBES: None BOWEL PATTERN: No evidence for obstruction. SOFT TISSUES: No abnormal anthony cifications. LUNG BASES: Not included BONES: No acute findings. I MPRESSION: Normal abdominal x-ray. The punctate stones seen in both kidn eys by CT are not visible by x-ray. Signed by: Dr. Radha corrigan M.D. on 03/27/2018 7:42 PM Dictated By: RADHA Patton heather Signed By: RADHA PALMER MD on 03/27/181941 Transcribed By: JANETTE on 0 03/27/181941 COPY TO: STEVE WASSERMAN MD CT ABDOMEN/PELVIS WO [place] [address] Patient Name: BONIFACIO GREEN MR #: [id number] DO B: 1965 Age/Sex: 52/M Req #: [id number] Adm Physici an: Ordered by: BRYANNA GREER MD Report #: [id number] Location: ER Room/Bed: Procedure: [id number] CT/CT ABDOMEN/PELVIS WO Exam Date: 03/26/18 Exam Time: 1919 REPORT STATUS: Signed EXAM: CT Abdomen and Pelvis WITH contrast INDICATION: Left flank pain COMPARISON: 05/20/2016 TECHNIQUE: Abdomen and pelvis were scanned utilizing a multidetector helical scanner from the lung base to the pubic sy mphysis after administration of IV contrast. Coronal and sagittal reformations were obtained. Routine protocol is performed. IV CONTRAST: Non e. ORAL CONTRAST: Water RADIATION DOSE: Total DLP: 4 55.72 mGy*cm Estimated effective dose: (DLP x 0.015 x size factor ) mSv COMPLICATIONS: None FINDINGS: LINES and TUBES: Non e. LOWER THORAX: Unremarkable HEPATOBILIARY: No focal hepatic le sions. No biliary ductal dilation. GALLBLADDER: No radio-opaque stones or sludge. No wall thickening. SPLEEN: No splenomegaly. PANCREAS: No fo anthony masses or ductal dilatation. ADRENALS: No adrenal nodules KI DNEYS/URETERS: There is a 5 mm stone in the left proximal ureter with mild le ft hydronephrosis and hydroureter. Left perinephric stranding may be due to ob struction. Multiple additional nonobstructing stones are seen in both kidne ys measuring up to about 6 mm. No stones in the right ureter. No cystic or byran id mass lesions. GI TRACT: No abnormal distention, wall thickening, or evidence of bowel obstruction. Postsurgical changes in the distal rectum. Appendix is normal. PELVIC ORGANS/BLADDER: Unremarkable. LYMPH NODES: No lymphadenopathy. VESSELS: There is mild atherosclerotic disease in the aorta and major arterial branches. PERITONEUM / RETROPERITONEUM: No free air or fluid. BONES: Unremarkable. SOFT TISSUES: Unremarkable. IMPRESSION: 5 mm stone in the left proximal ureter with mild left h ydronephrosis and hydroureter. Lindsay Anthony MD Signed by: Dr. Heber Anthony M.D. on 03/26/2018 8:07 PM Dictated By: LINDSAY ANTHONY MD 06 Transcribed By: JANETTE on 03/26/182006 COPY TO: BRYANNA GREER MD
[2020-08-09] MEDS ORDERED: ONDANSETRON HCL INJ 2MG/ML 2ML 2 MG/ML VIAL ONE (11:46)
[2020-08-09] MEDS ORDERED: MORPHINE SULFATE INJ 4 MG/ML INJ 1ML ONE (11:47)
--- NOTE | 2020-08-09 12:24 | Diagnostic Imaging Report ---
EXAM: CT Abdomen and Pelvis WITHOUT contrast INDICATION: ^pain ^[id number] ^1207 COMPARISON: None. TECHNIQUE: Abdomen and pelvis were scanned utilizing a multidetector helical scanner from the lung base to the pubic symphysis without administration of IV contrast. Absence of intravenous contrast decreases sensitivity for detection of focal lesions and vascular pathology. Coronal and sagittal reformations were obtained. Routine protocol was performed. IV CONTRAST: None ORAL CONTRAST: Water COMPLICATIONS: None RADIATION DOSE: Total ^pain ^[id number] ^1207 Estimated effective dose: (DLP x 0.015 x size factor) mSv CTDIvol has been reviewed. It is below the limits set by the Radiation Protocol Committee (RPC). FINDINGS: LINES and TUBES: None. LOWER THORAX: Unremarkable HEPATOBILIARY: No biliary ductal dilation. GALLBLADDER: No radio-opaque stones or sludge. No wall thickening. SPLEEN: No splenomegaly. PANCREAS: No focal masses or ductal dilatation. ADRENALS: No adrenal nodules KIDNEYS/URETERS: No hydronephrosis. No cystic or solid mass lesions. 3 mm nonobstructing calculus in the upper pole of the left kidney. There is a punctate nodular calculus in the upper and lower poles of the right kidney. GI TRACT: There is mild gaseous distention of the colon. Status post low anterior rectal resection. There is a clip in the region of the ileocecal junction. Retrocecal Appendix is normal. PELVIC ORGANS/BLADDER: Unremarkable. LYMPH NODES: No lymphadenopathy. VESSELS: There is mild atherosclerotic disease in the aorta and major arterial branches. PERITONEUM / RETROPERITONEUM: No free air or fluid. BONES: There are degenerative changes in the lumbar spine. SOFT TISSUES: Unremarkable. IMPRESSION: No acute intra-abdominal or intrapelvic abnormal. Surgical clip in the region of the cecal junction and prior low anterior rectal resection. Bilateral subcentimeter nonobstructing renal calculi. No hydronephrosis. Signed by: Brendan Coronado MD on 08/09/2020 12:21 PM
[2020-08-09] MEDS ORDERED: DICYCLOMINE HCL 20 MG/2 ML VIAL IM NR (13:00)
[2020-08-09] MEDS ORDERED: DICYCLOMINE HCL 20 MG/2 ML VIAL IM ONE (13:28)
--- NOTE | 2020-08-09 14:03 | Emergency Department Note ---
History of Present Illnes History of Present Illness Chief Complaint: Abdominal Complaints History of Present Illness This is a 55 year old male . Chief Complaint Comment Pt arrived to the ER with c/o abdominal pain since last night. Pt reports having a colonoscopy done by Dr. Nely Lewis yesterday and states he had a tumor removed and clipped. Pt describes pain as "tender" states worse with movement or taking a deep breath. Denies any n/v/d. Last BM 08/07/20-when doing bowel prep. Historian: Patient, Significant Other Arrival Mode: Car Onset (how long ago): day(s) (3) Location: abdomen Quality: dull Radiation: Denies non-radiation, Denies back, Denies neck, Denies extremity, Denies abdomen, Denies periumbilical, Denies flank, Denies proximal, Denies distal, Denies other Severity: moderate Onset quality: gradual Duration (how long): day(s) (1) Timing of current episode: constant Progression: worsening Chronicity: new Context: Denies recent illness, Denies recent surgery, Denies recent immobilization, Denies recent travel, Denies trauma/injury, Denies new medications, Denies hx of DVT/PE, Denies non-compliance w/ medications, Denies other Relieving factors: none Exacerbating factors: none Associated symptoms: Denies denies other symptoms, Denies confusion, Denies chest pain, Denies cough, Denies diaphoresis, Denies fever/chills, Denies headaches, Denies loss of appetite, Denies malaise, Denies nausea/vomiting, Denies rash, Denies seizure, Denies shortness of breath, Denies syncope, Denies weakness, Denies other Treatments prior to arrival: none Past Medical/Family History Physician Review I have reviewed the patient's past medical and family history. Any updates have been documented here. 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 NEUROPATHY BULGING DISKS LOWER BACK L3 L4 SLEEP APNEA NARCOLEPSY ANXIETY Sleep attacks Overactive bladder/incontinence constipation to diarrhea PSA Hands, feet, arthraligia Erythromelalgia Other Surgery: HEMORRHOID SURGERIES TONSILECTOMY SINUS SURGERY HERNIA REPAIR CARPAL TUNNEL SURGERY KIDNEY STONE REMOVAL Grade 3 L AC Separation Social History Smoking Cessation: Never Smoker Alcohol Use: None Any Illegal Drug Use: No Physically hurt or threatened: No Other Last Tetanus: OOD Any Pre-Existing Lines (PICC,: No Review of Systems Review of Systems Constitutional: Reports no symptoms EENTM: Reports no symptoms Cardiovascular: Reports no symptoms Respiratory: Reports no symptoms Gastrointestinal: Reports as per HPI Genitourinary: Reports no symptoms Musculoskeletal: Reports no symptoms Integumentary: Reports no symptoms Neurological: Reports no symptoms Psychological: Reports no symptoms Endocrine: Reports no symptoms Hematological/Lymphatic: Reports no symptoms Physical Exam Related Data Allergies: Coded Allergies: haloperidol (Verified Allergy, Mild, CRAMPING/SPASM, 05/26/16) Triage Vital Signs Vital Signs Date Time Temp Pulse Resp B/P (MAP) Pulse Ox O2 Delivery O2 Flow Rate FiO2 08/09/20 11:05 98.5 71 16 112/76 100 Room Air Vital signs reviewed: Yes Physical Exam CONSTITUTIONAL Constitutional: Present well-developed, Present well-nourished HENT HENT: Present normocephalic, Present atraumatic, Present oropharynx clear/moist, Present nose normal; Absent oropharynx normal, Absent mucosae dry, Absent nasal discharge, Absent nasal congestion, Absent rhinorrhea, Absent oropharyngeal exudate, Absent tonsillar excudate, Absent pharynx abnormal, Absent erythema, Absent dentition normal, Absent dental caries, Absent other HENT L/R: Present left ext ear normal, Present right ext ear normal; Absent left TM normal, Absent right TM normal, Absent left canal normal, Absent right canal normal, Absent left impacted cerumen, Absent right impacted cerumen, Absent left bulging TM, Absent right bulging TM, Absent other EYES Eyes: Reports PERRL, Reports conjunctivae normal; Denies EOM normal, Denies lids normal, Denies left eye discharge, Denies right eye discharge, Denies scleral icterus, Denies other NECK Neck: Present ROM normal; Absent supple, Absent thyromegaly, Absent tracheal deviation, Absent stridor, Absent JVD, Absent cervical adenopathy, Absent carotid bruit, Absent other PULMONARY Pulmonary: Present effort normal, Present breath sounds normal; Absent respiratory distress, Absent rales, Absent rhonchi, Absent chest tenderness, Absent other CARDIOVASCULAR Cardiovascular: Present regular rhythm, Present heart sounds normal, Present capillary refill normal, Present normal rate; Absent irregular rhythm, Absent intact distal pulses, Absent tachycardia, Absent bradycardia, Absent murmur, Absent gallop, Absent friction rub, Absent palpable pulses, Absent strong pulses, Absent weak pulses, Absent LLE edema, Absent RLE edema, Absent other GASTROINTESTINAL Abdominal: Present soft, Present bowel sounds normal, Present tender GENITOURINARY Genitourinary: Present exam deferred; Absent penis normal, Absent rectum normal, Absent prostate normal, Absent guaiac result, Absent penis tenderness, Absent other SKIN Skin: Present warm, Present dry; Absent erythema, Absent pale, Absent rash, Absent jaundiced, Absent bruising, Absent lesion, Absent other MUSCULOSKELETAL Musculoskeletal: Present ROM normal; Absent edema, Absent deformity, Absent tenderness, Absent swelling, Absent other NEUROLOGICAL Neurological: Present alert, Present oriented x 3, Present no gross motor or sensory deficits; Absent DTRs normal, Absent cranial nerve deficit, Absent sensory deficit, Absent abnormal DTRs, Absent abnormal coordination, Absent abnormal gait, Absent weakness, Absent other PSYCHOLOGICAL Psychological: Present mood/affect normal, Present judgement normal Results Laboratory Lab results reviewed: Yes Imaging Imaging results reviewed: Yes Assessment & Plan Medical Decision Making MDM perforation obstruction Reassessment Reassessment time: 14:02 Reassessment better Assessment & Plan Final Impression: (1) Abdominal pain (2) Intractable pain Last Vital Signs Date Time Temp Pulse Resp B/P (MAP) Pulse Ox O2 Delivery O2 Flow Rate FiO2 08/09/20 11:05 98.5 71 16 112/76 100 Room Air Home Meds Active Scripts Acetaminophen With Codeine (TYLENOL WITH CODEINE #3 TABLET) 1 Each Tablet, 1-2 TAB PO Q6H PRN for pain, #20 TAB 0 [address]ills Do [address] take and drive or operate machinery Prov:JOSE WALKER MD 06/25/19 Reported Medications Dexamethasone (Decadron) 0.5 Mg Tablet, IM QMO 08/03/20 Cyanocobalamin (Vitamin B-12) (B-12) 5,000 Mcg/1 Ml Drops, MCG IM QMO 08/03/20 Pantoprazole Sodium (PROTONIX) 40 Mg Suspdr.pkt, 40 MG PO DAILY, #30 TAB 08/03/20 Lactobac Cmb #3/Fos/Pantethine (PROBIOTIC & ACIDOPHILUS CAP) 1 Each Capsule, 1 CAP PO DAILY 08/03/20 Dicyclomine Hcl (DICYCLOMINE HCL) 20 Mg Tablet, 20 MG PO TID, TAB 08/03/20 [T-Anthony Shampoo] No Conflict Check, TOP PRN 07/14/20 Desonide (DESONIDE) 15 Gm Cream..g., TOP PRN 07/14/20 Ketorolac Tromethamine (TORADOL) 10 Mg Tablet, IM MONTHLY 07/14/20 Tolterodine Tartrate (DETROL LA) 4 Mg Cap.er.24h, 4 MG PO HS, #30 CAP 07/14/20 Testosterone Cypionate (TESTOSTERONE CYPIONATE) 100 Mg/1 Ml Vial, IM MONTHLY 07/14/20 Diazepam (VALIUM) 10 Mg Tablet, 10 MG PO PRN 07/14/20 Temazepam (TEMAZEPAM) 15 Mg Capsule, 30 MG PO HS 07/14/20 Lisdexamfetamine Dimesylate (VYVANSE) 40 Mg Capsule, 40 MG PO DAILY 07/14/20 Duloxetine Hcl (CYMBALTA) 30 Mg Capsule.dr, 60 MG PO DAILY, #30 CAP 03/27/18 Metoprolol Tartrate (METOPROLOL TARTRATE) 50 Mg Tablet, 50 MG PO BID, TAB 08/07/15 Discontinued Reported Medications Acetaminophen (ACETAMINOPHEN) 325 Mg Tablet, 1000 MG PO Q6H PRN for MILD PAIN (1-3) for 5 Days, TAB 07/18/20 Fluocinolone Acetonide Oil (Flac Otic Oil) 20 Ml Drops, TOP PRN 07/14/20 Triamcinolone Acetonide (KENALOG-40) 40 Mg/1 Ml Vial, IM MONTHLY, VIAL 07/14/20 Upadacitinib (Rinvoq ER) 15 Mg Tab.er.24h, 15 MG PO DAILY 07/14/20 Cyanocobalamin (Vitamin B-12) (VITAMIN B-12) 1,000 Mcg Tab.subl, IM MONTHLY 07/14/20 Zolpidem Tartrate (AMBIEN) 10 Mg Tablet, 10 MG PO HS, #30 TAB 07/14/20 Medications in the ED Morphine Sulfate 4 mg ONCE ONCE IV Last administered on 08/09/20at 11:48; Admin Dose 4 MG; Start 08/09/20 at 11:30; Stop 08/09/20 at 11:32; Status DC Ondansetron HCl 4 mg NOW STAT IV Last administered on 08/09/20at 11:46; Admin Dose 4 MG; Start 08/09/20 at 11:27; Stop 08/09/20 at 11:33; Status DC Ondansetron HCl 4 mg STK-MED ONCE .ROUTE ; Start 08/09/20 at 11:46; Stop 08/09/20 at 11:40; Status DC Morphine Sulfate 4 mg STK-MED ONCE .ROUTE ; Start 08/09/20 at 11:47; Stop 08/09/20 at 11:40; Status DC Dicyclomine HCl 20 mg ONCE IM Last administered on 08/09/20at 13:24; Admin Dose 20 MG; Start 08/09/20 at 13:00; Stop 08/09/20 at 14:00 Dicyclomine HCl 20 mg STK-MED ONCE IM ; Start 08/09/20 at 13:28; Stop 08/09/20 at 13:23; Status DC VAL FLORES MD Aug 09, 2020 14:02
[2020-08-09 14:06] VITALS: BP 117/73
== END 2020-08-09 14:12 | disposition home or self-care (01) ==
LOC: FSED 11:30
DX: R10.11 Right upper quadrant pain (principal); G62.9 Polyneuropathy, unspecified; F41.9 Anxiety disorder, unspecified; Z87.442 Personal history of urinary calculi
CPT/HCPCS: 74176; 80048; 80076; 81003; 85025; 99283; J0500; J2270; J2405

== ENCOUNTER → 2020-09-24 | Outpatient (CLI) | payer OTHER, MEDICARE ==
--- NOTE | 2020-09-25 22:47 | Diagnostic Imaging Report ---
Octreoscan (Somatostatin-Receptor Imaging) Reason for exam: Neuroendocrine tumor of terminal ilium. May not be completely resected. Radiopharmaceutical: Indium-111 pentetreotide 6.2 mCi IV Report: Total body and tomographic images of the abdomen were obtained at 4 hours post injection of the radiopharmaceutical. Total body as well as tomographic images of the chest were obtained at 24 hours. Distribution of tracer activity is physiologic throughout the body. No abnormal accumulation of tracer is seen. Impression: 1. No scan evidence of neuroendocrine tumor or metastases. 2. Size of remnant tumor at surgical site may be below the resolution of gamma camera imaging. Signed by: Dr. Mihaela Dickens M.D. on 09/25/2020 10:44 PM
== END ==
LOC: NM 08:45
PROVIDERS: ATTEND Internal Medicine Gastroenterology
DX: C7A.8 Other malignant neuroendocrine tumors (principal); E31.20 Multiple endocrine neoplasia [MEN] syndrome, unspecified
CPT/HCPCS: 78804

== ENCOUNTER 2020-12-11 14:05 | Inpatient (IN) | payer MEDICARE, OTHER ==
[~2020-12-11] VITALS: Ht 175.3 cm; Wt 69.9 kg
[2020-12-11] MEDS ORDERED: KETOROLAC TROMETHAMINE 30 MG/ML VIAL IV STA (14:14)
[2020-12-11] MEDS ORDERED: SODIUM CHLORIDE 0.9% 1000ML 1,000 ML IV STA (14:14)
[2020-12-11] MEDS ORDERED: ONDANSETRON HCL INJ 2MG/ML 2ML 2 MG/ML VIAL IV STA (14:14)
[2020-12-11 14:45] LABS: BASOPHILS % 0.6 % (0.0-1.0); EOSINOPHILS # (AUTO) 0.1 (0.0-0.4); EOSINOPHILS % 1.6 % (0.0-6.0); HEMATOCRIT 43.8 % (38.2-49.6); HEMOGLOBIN 15.4 g/dL (14.0-18.0); LYMPHOCYTES # (AUTO) 1.4 (1.0-3.2); LYMPHOCYTES % 20.6 % (18.0-39.1); MEAN CORPUSCULAR HEMOGLOBIN 32.6 pg (28-32); MEAN CORPUSCULAR HGB CONC 35.2 g/dL (31-35); MEAN CORPUSCULAR VOLUME 92.8 fL (81-99); MONOCYTES # (AUTO) 0.5 (0.2-0.8); MONOCYTES % 7.4 % (4.4-11.3); NEUTROPHILS # (AUTO) 4.9 (2.1-6.9); NEUTROPHILS % 69.7 % (38.7-80.0); PLATELET COUNT 273 x10e3/uL (140-360); RED BLOOD COUNT 4.72 x10e6/uL (4.3-5.7); RED CELL DISTRIBUTION WIDTH 12.1 % (11.7-14.4)
[2020-12-11 14:51] LABS: CLARITY,URINE CLEAR (CLEAR); COLOR,URINE YELLOW (YELLOW); KETONES,URINE TRACE (NEGATIVE); LEUKOCYTE ESTERASE ,URINE NEGATIVE (NEGATIVE); NITRITE,URINE NEGATIVE (NEGATIVE); PROTEIN,URINE DIPSTICK 1+ (NEGATIVE); URINE UROBILINOGEN 0.2 mg/dL (0.2 - 1)
[2020-12-11 15:02] LABS: ALBUMIN 4.1 g/dL (3.5-5.0); ALBUMIN/GLOBULIN RATIO 1.6 (0.8-2.0); ANION GAP 13.1 mmol/L (8-16); CREATININE, SERUM 1.45 mg/dL (0.72-1.25); POTASSIUM 4.1 mmol/L (3.5-5.1)
[2020-12-11 15:08] LABS: CREATINE KINASE MB 1.5 ng/mL (0-5.0)
[2020-12-11 15:09] LABS: BACTERIA,URINE RARE /HPF; WBC,URINE (MAN) 0-5 /HPF (0-5)
[2020-12-11 15:10] LABS: MUCUS,URINE FEW (RARE)
[2020-12-11] MEDS ORDERED: MORPHINE SULFATE INJ 2 MG/ML SYR IV PRN (15:30)
[2020-12-11 16:41] VITALS: BP 105/78
[2020-12-11] MEDS ORDERED: CEFTRIAXONE SOD 1 GM/NS 50 ML 50 ML IV SCH (18:00)
[2020-12-11] MEDS: SODIUM CHLORIDE 0.9% 1000ML 1,000 ML IV SCH (18:00)
[2020-12-11] MEDS ORDERED: CELEXA10 MG PO (18:48)
[2020-12-11 18:51] VITALS: BP 105/78
[2020-12-11 19:55] VITALS: BP 135/83
[2020-12-11] MEDS: ONDANSETRON HCL INJ 2MG/ML 2ML 2 MG/ML VIAL IV PRN (20:04)
[2020-12-11] MEDS: MORPHINE SULFATE INJ 4 MG/ML INJ 1ML IV PRN (20:04)
[2020-12-11 20:14] VITALS: BP 135/83
[2020-12-11 23:33] VITALS: BP 110/71
[2020-12-12] VITALS (7 sets, daily range): BP systolic 96–119; BP diastolic 68–79
[2020-12-12] MEDS: SODIUM CHLORIDE 0.9% 1000ML 1,000 ML IV SCH ×3 (01:10→17:45)
[2020-12-12] MEDS: ONDANSETRON HCL INJ 2MG/ML 2ML 2 MG/ML VIAL IV PRN (01:11)
[2020-12-12] MEDS: MORPHINE SULFATE INJ 4 MG/ML INJ 1ML IV PRN (01:11)
[2020-12-12 05:56] LABS: BASOPHILS % 0.6 % (0.0-1.0); EOSINOPHILS # (AUTO) 0.2 (0.0-0.4); EOSINOPHILS % 3.5 % (0.0-6.0); HEMATOCRIT 35.5 % (38.2-49.6); HEMOGLOBIN 12.6 g/dL (14.0-18.0); LYMPHOCYTES # (AUTO) 1.5 (1.0-3.2); LYMPHOCYTES % 28.1 % (18.0-39.1); MEAN CORPUSCULAR HEMOGLOBIN 34.9 pg (28-32); MEAN CORPUSCULAR HGB CONC 35.5 g/dL (31-35); MEAN CORPUSCULAR VOLUME 98.3 fL (81-99); MONOCYTES # (AUTO) 0.6 (0.2-0.8); NEUTROPHILS # (AUTO) 2.9 (2.1-6.9); NEUTROPHILS % 56.4 % (38.7-80.0); PLATELET COUNT 160 x10e3/uL (140-360); RED BLOOD COUNT 3.61 x10e6/uL (4.3-5.7); RED CELL DISTRIBUTION WIDTH 12.6 % (11.7-14.4)
[2020-12-12 06:23] LABS: CALCIUM 7.9 mg/dL (8.4-10.2); CREATININE, SERUM 1.28 mg/dL (0.72-1.25)
[2020-12-12 06:24] LABS: ALBUMIN/GLOBULIN RATIO 1.4 (0.8-2.0)
[2020-12-12] MEDS: HYDROMORPHONE 1MG/1ML INJ IV PRN ×3 (07:55→19:20)
[2020-12-12] MEDS: DULOXETINE HCL 20 MG DELAYED RELEASE PO SCH (07:58)
[2020-12-12] MEDS: METOPROLOL TARTRATE 50 MG TAB PO SCH ×2 (07:59→15:18)
[2020-12-12] MEDS: DULOXETINE HCL 30 MG DELAYED RELEASE PO SCH (07:59)
[2020-12-12] MEDS ORDERED: IOPAMIDOL 300MG/ML 50ML INFUS..BTL IV ONE (12:59)
[2020-12-12] MEDS ORDERED: B&O 60MG R/S 60 MG SUPP PR ONE (13:00)
[2020-12-12] MEDS ORDERED: PHENAZOPYRIDINE HCL 100 MG TAB PO PRN (13:45)
[2020-12-12] MEDS ORDERED: B&O 60MG R/S 60 MG SUPP PR PRN (13:45)
[2020-12-12] MEDS ORDERED: CEFTRIAXONE SOD 1 GM in SODIUM CHLORIDE 0.9% 50ML 50 ML IV SCH (18:00)
[2020-12-12] MEDS ORDERED: TOLTERODINE TARTRATE 4 MG CAPCR PO SCH (21:00)
[2020-12-12] MEDS ORDERED: TEMAZEPAM 15 MG CAP PO SCH (21:00)
[2020-12-13] VITALS: BP 114/67
[2020-12-13] MEDS: HYDROMORPHONE 1MG/1ML INJ IV PRN (00:07)
[2020-12-13] MEDS: SODIUM CHLORIDE 0.9% 1000ML 1,000 ML IV SCH ×2 (00:12→08:00)
[2020-12-13 04:00] VITALS: BP 93/68
[2020-12-13 05:21] LABS: HEMATOCRIT 35.6 % (38.2-49.6); HEMOGLOBIN 12.7 g/dL (14.0-18.0); LYMPHOCYTES # (AUTO) 0.5 (1.0-3.2); LYMPHOCYTES % 6.6 % (18.0-39.1); MEAN CORPUSCULAR HEMOGLOBIN 33.7 pg (28-32); MEAN CORPUSCULAR HGB CONC 35.7 g/dL (31-35); MEAN CORPUSCULAR VOLUME 94.4 fL (81-99); MONOCYTES # (AUTO) 0.3 (0.2-0.8); MONOCYTES % 3.7 % (4.4-11.3); NEUTROPHILS # (AUTO) 6.1 (2.1-6.9); NEUTROPHILS % 89.3 % (38.7-80.0); PLATELET COUNT 208 x10e3/uL (140-360); RED BLOOD COUNT 3.77 x10e6/uL (4.3-5.7); RED CELL DISTRIBUTION WIDTH 11.9 % (11.7-14.4)
[2020-12-13 05:52] LABS: ANION GAP 15.1 mmol/L (8-16); BLOOD UREA NITROGEN 17 mg/dL (7-26); BUN/CREATININE RATIO 16 (6-25); CALCIUM 7.9 mg/dL (8.4-10.2); CARBON DIOXIDE 24 mmol/L (22-29); CHLORIDE 103 mmol/L (98-107); CREATININE, SERUM 1.09 mg/dL (0.72-1.25); EST GLOMERULAR FILTRATION RATE > 60 ML/MIN (60-); GLUCOSE 186 mg/dL (74-118); POTASSIUM 4.1 mmol/L (3.5-5.1); SODIUM 138 mmol/L (136-145)
[2020-12-13 07:38] VITALS: BP 116/62
[2020-12-13 07:58] VITALS: BP 116/62
[2020-12-13] MEDS: DULOXETINE HCL 30 MG DELAYED RELEASE PO SCH (08:00)
[2020-12-13] MEDS: DULOXETINE HCL 20 MG DELAYED RELEASE PO SCH (08:00)
[2020-12-13] MEDS: METOPROLOL TARTRATE 50 MG TAB PO SCH (08:00)
[2020-12-13] MEDS ORDERED: TYLENOL # 31 EA PO (09:50)
[2020-12-13] MEDS ORDERED: DITROPAN XL5 MG PO (09:51)
== END 2020-12-13 10:25 | disposition home or self-care (01) | DRG 661 ==
LOC: ER 14:15 → ERHOLD 15:20 → MED/SURG2 16:20 → OBSVTOIN 12-12 14:14
PROVIDERS: ADMIT Internal Medicine; ATTEND Internal Medicine
PROC: 0TC78ZZ Extirpation of Matter from Left Ureter, Via Natural or Artificial Opening Endoscopic (ICD-10-PCS; 2020-12-12)
PROC: BT141ZZ Fluoroscopy of Kidneys, Ureters and Bladder using Low Osmolar Contrast (ICD-10-PCS; principal; 2020-12-12 14:00)
PROC: 0T778DZ Dilation of Left Ureter with Intraluminal Device, Via Natural or Artificial Opening Endoscopic (ICD-10-PCS; 2020-12-12 14:00)
DX: N13.2 Hydronephrosis with renal and ureteral calculous obstruction (principal); Z87.442 Personal history of urinary calculi; Z88.8 Allergy status to other drugs, medicaments and biological substances; I12.9 Hypertensive chronic kidney disease with stage 1 through stage 4 chronic kidney disease, or unspecified chronic kidney disease; N18.30 Chronic kidney disease, stage 3 unspecified; G47.419 Narcolepsy without cataplexy; F41.9 Anxiety disorder, unspecified; Z82.49 Family history of ischemic heart disease and other diseases of the circulatory system; D64.9 Anemia, unspecified; N17.9 Acute kidney failure, unspecified; R31.29 Other microscopic hematuria; Z20.822 Contact with and (suspected) exposure to COVID-19
CPT/HCPCS: 36415; 71045; 74176; 74420; 80048; 80053; 81001; 82550; 82553; 84484; 84550; 85025; 88300; 99284; C1769; C2617; G0378; J0696; J1170; J1885; J2270; J2405; J7030; U0002

== ENCOUNTER → 2021-01-14 | Day surgery (SDC) | payer MEDICARE, OTHER ==
[2021-01-10 13:23] LABS: BASOPHILS # (AUTO) 0.1 (0.0-0.1); BASOPHILS % 0.7 % (0.0-1.0); EOSINOPHILS # (AUTO) 0.2 (0.0-0.4); EOSINOPHILS % 2.4 % (0.0-6.0); HEMATOCRIT 47.2 % (38.2-49.6); HEMOGLOBIN 16.1 g/dL (14.0-18.0); LYMPHOCYTES # (AUTO) 1.8 (1.0-3.2); MEAN CORPUSCULAR HEMOGLOBIN 32.1 pg (28-32); MEAN CORPUSCULAR HGB CONC 34.1 g/dL (31-35); MEAN CORPUSCULAR VOLUME 94.2 fL (81-99); MONOCYTES # (AUTO) 0.6 (0.2-0.8); MONOCYTES % 8.2 % (4.4-11.3); NEUTROPHILS # (AUTO) 4.5 (2.1-6.9); NEUTROPHILS % 63.4 % (38.7-80.0); PLATELET COUNT 279 x10e3/uL (140-360); RED BLOOD COUNT 5.01 x10e6/uL (4.3-5.7); RED CELL DISTRIBUTION WIDTH 12.4 % (11.7-14.4)
[2021-01-10 13:43] LABS: ANION GAP 11.2 mmol/L (8-16); CALCIUM 8.9 mg/dL (8.4-10.2); CREATININE, SERUM 1.3 mg/dL (0.72-1.25); POTASSIUM 5.2 mmol/L (3.5-5.1)
[~2021-01-14] MED LIST changes: +B&O 60MG R/S 60 MG SUPP PR ONE; +CEFTRIAXONE SOD 1 GM VIAL ONE; +CELEXA10 MG PO; +DEXAMETHASONE SOD PHOS INJ 4 MG/ML VIAL ONE; +FENTANYL CITRATE/PF 100MCG/2 ML INJ ONE; +GLYCOPYRROLATE INJ 0.2 MG/ML VIAL ONE; +IOPAMIDOL 300MG/ML 50ML INFUS..BTL IV ONE; +LIDOCAINE HCL 2% LOCAL INJ 5 ML SDV VIAL INJ ONE; +MIDAZOLAM HCL 2 MG/2 ML VIAL ONE; +ONDANSETRON HCL INJ 2MG/ML 2ML 2 MG/ML VIAL ONE; +PROPOFOL IV EMULSION 10 MG/ML 20 ML VIAL ONE; +SEVOFLURANE INHAL SOLN 250 ML PEN BTL ONE; +SODIUM CHLORIDE 0.9% 50ML 50 ML ONE; +TYLENOL # 31 EA PO
[2021-01-14 08:23] LABS: ANION GAP 13.4 mmol/L (8-16); CALCIUM 8.9 mg/dL (8.4-10.2); CREATININE, SERUM 1.28 mg/dL (0.72-1.25); POTASSIUM 4.4 mmol/L (3.5-5.1)
[2021-01-14 10:38] VITALS: BP 126/71
== END | disposition home or self-care (01) ==
LOC: OR 07:23
PROVIDERS: ATTEND Urology
DX: Z46.6 Encounter for fitting and adjustment of urinary device (principal); N40.0 Benign prostatic hyperplasia without lower urinary tract symptoms; N32.89 Other specified disorders of bladder; N28.89 Other specified disorders of kidney and ureter; N39.44 Nocturnal enuresis; N32.81 Overactive bladder; R39.14 Feeling of incomplete bladder emptying; R39.12 Poor urinary stream; R80.9 Proteinuria, unspecified; G47.33 Obstructive sleep apnea (adult) (pediatric); G47.419 Narcolepsy without cataplexy; I20.9 Angina pectoris, unspecified; R09.89 Other specified symptoms and signs involving the circulatory and respiratory systems; D3A.8 Other benign neuroendocrine tumors; K44.9 Diaphragmatic hernia without obstruction or gangrene; K58.9 Irritable bowel syndrome, unspecified; R00.1 Bradycardia, unspecified; F41.9 Anxiety disorder, unspecified; Z88.8 Allergy status to other drugs, medicaments and biological substances; Z01.810 Encounter for preprocedural cardiovascular examination; Z01.812 Encounter for preprocedural laboratory examination; Z01.818 Encounter for other preprocedural examination; Z20.822 Contact with and (suspected) exposure to COVID-19; Z84.1 Family history of disorders of kidney and ureter
CPT/HCPCS: 36415 ×2; 52351; 71046; 74018; 74420; 80048 ×2; 85025; 93005; C1758; J0696; J1100; J2001; J2250; J2405; J2704; J3010; Q9967; U0002

== ENCOUNTER → 2021-01-24 | Day surgery (SDC) | payer MEDICARE, OTHER ==
[2021-01-21 15:05] LABS: BASOPHILS # (AUTO) 0.1 (0.0-0.1); BASOPHILS % 0.6 % (0.0-1.0); EOSINOPHILS % 0.3 % (0.0-6.0); HEMATOCRIT 42.8 % (38.2-49.6); HEMOGLOBIN 14.5 g/dL (14.0-18.0); LYMPHOCYTES # (AUTO) 2.2 (1.0-3.2); LYMPHOCYTES % 24.6 % (18.0-39.1); MEAN CORPUSCULAR HEMOGLOBIN 32.4 pg (28-32); MEAN CORPUSCULAR HGB CONC 33.9 g/dL (31-35); MEAN CORPUSCULAR VOLUME 95.7 fL (81-99); MONOCYTES # (AUTO) 0.8 (0.2-0.8); MONOCYTES % 8.6 % (4.4-11.3); NEUTROPHILS # (AUTO) 5.9 (2.1-6.9); NEUTROPHILS % 65.6 % (38.7-80.0); PLATELET COUNT 276 x10e3/uL (140-360); RED BLOOD COUNT 4.47 x10e6/uL (4.3-5.7); RED CELL DISTRIBUTION WIDTH 12.6 % (11.7-14.4)
[2021-01-21 15:15] LABS: INR 0.89; PROTHROMBIN TIME 12.6 seconds (11.9-14.5)
[2021-01-21 15:16] LABS: PARTIAL THROMBOPLASTIN TIME 22.9 seconds (23.8-35.5)
[2021-01-21 15:20] LABS: ANION GAP 13.6 mmol/L (8-16); BLOOD UREA NITROGEN 14 mg/dL (7-26); BUN/CREATININE RATIO 12 (6-25); CARBON DIOXIDE 27 mmol/L (22-29); CHLORIDE 102 mmol/L (98-107); CREATININE, SERUM 1.13 mg/dL (0.72-1.25); EST GLOMERULAR FILTRATION RATE > 60 ML/MIN (60-); GLUCOSE 87 mg/dL (74-118); POTASSIUM 3.6 mmol/L (3.5-5.1); SODIUM 139 mmol/L (136-145)
[~2021-01-24] MED LIST changes: +ACETAMINOPHEN 1000 MG/100 ML 100 ML IV ONE; +ACETAMINOPHEN 325 MG TAB PO PRN; +ACETAMINOPHEN/CODEINE 300MG - 30MG TAB PO PRN; -B&O 60MG R/S 60 MG SUPP PR ONE; +CARISOPRODOL 350 MG TAB PO PRN; +CEFAZOLIN SOD 1 GM/NS 50ML 100 ML IV ONE; -CEFTRIAXONE SOD 1 GM VIAL ONE; +CITALOPRAM HYDROBROMIDE 20 MG TAB PO SCH; +DIAZEPAM 5 MG TAB PO PRN; +DULOXETINE HCL 30 MG DELAYED RELEASE PO SCH; -GLYCOPYRROLATE INJ 0.2 MG/ML VIAL ONE; +HYDROCODON-ACE1 EA12 PO; +HYDROMORPHONE 2MG/ML 2 MG/ML ML IV PRN; +IBUPROFEN 800MG/ 200ML 200 ML IV ONE; -IOPAMIDOL 300MG/ML 50ML INFUS..BTL IV ONE; +LACTATED RINGER'S 1,000 ML IV SCH; +LIDOCAINE 1% W/EPINEPHRINE 20 ML VIAL ONE; +LIDOCAINE HCL (LTA) 4 ML SOLN ONE; +LIDOCAINE HCL 2% JELLY 5 ML TUBE ONE; +MAGNESIUM/ALUMINUM/SIMETHICONE 30 ML UDC PO PRN; +METOPROLOL TARTRATE 50 MG TAB PO SCH; +MORPHINE SULFATE 5 MG/ML VIAL IM PRN; +ONDANSETRON HCL INJ 2MG/ML 2ML 2 MG/ML VIAL IV PRN; +OXYBUTYNIN CHLORIDE XL 5 MG TAB PO SCH; +OXYCODONE/ACETAMINOPHEN 5-325 1 EACH TABLET PO PRN; +PROMETHAZINE HCL (IM) 25 MG/ML VIAL IM PRN; +ROCURONIUM BROMIDE 10 MG/ML 5ML VIAL IV ONE; -SODIUM CHLORIDE 0.9% 50ML 50 ML ONE; +SUGAMMADEX SODIUM 200 MG/2 ML VIAL IV ONE; +TEMAZEPAM 15 MG CAP PO SCH; +THROMBIN FOR SOLN 5,000 UNIT VIAL ONE; +VANCOMYCIN HCL 1 GM VIAL ONE; +ZOLPIDEM TARTRATE 5 MG TAB PO PRN
[2021-01-24 10:00] VITALS: BP 130/78
== END | disposition home or self-care (01) ==
LOC: OR 05:39
PROVIDERS: ATTEND Neurological Surgery
DX: M51.16 Intervertebral disc disorders with radiculopathy, lumbar region (principal); M19.079 Primary osteoarthritis, unspecified ankle and foot; M19.049 Primary osteoarthritis, unspecified hand; G47.411 Narcolepsy with cataplexy; L40.9 Psoriasis, unspecified; K21.9 Gastro-esophageal reflux disease without esophagitis; I49.9 Cardiac arrhythmia, unspecified; N18.9 Chronic kidney disease, unspecified; N20.0 Calculus of kidney; Z88.8 Allergy status to other drugs, medicaments and biological substances; Z01.812 Encounter for preprocedural laboratory examination; Z20.822 Contact with and (suspected) exposure to COVID-19; Z87.891 Personal history of nicotine dependence
CPT/HCPCS: 36415; 63047; 72020; 80048; 85025; 85610; 85730; 86850; 86900; 88304; J0131; J0690; J1100; J2001 ×2; J2250; J2405; J2704; J3010; J3370; U0002

== ENCOUNTER 2021-04-12 14:21 | Inpatient (IN) | payer MEDICARE, OTHER ==
[~2021-04-12] VITALS: Ht 175.3 cm; Wt 71.7 kg
[~2021-04-12 14:21] MED LIST changes: -ACETAMINOPHEN 1000 MG/100 ML 100 ML IV ONE; -ACETAMINOPHEN 325 MG TAB PO PRN; -ACETAMINOPHEN/CODEINE 300MG - 30MG TAB PO PRN; -CARISOPRODOL 350 MG TAB PO PRN; -CEFAZOLIN SOD 1 GM/NS 50ML 100 ML IV ONE; -CITALOPRAM HYDROBROMIDE 20 MG TAB PO SCH; -DEXAMETHASONE SOD PHOS INJ 4 MG/ML VIAL ONE; -DIAZEPAM 5 MG TAB PO PRN; -DULOXETINE HCL 30 MG DELAYED RELEASE PO SCH; -FENTANYL CITRATE/PF 100MCG/2 ML INJ ONE; -HYDROMORPHONE 2MG/ML 2 MG/ML ML IV PRN; -IBUPROFEN 800MG/ 200ML 200 ML IV ONE; -LACTATED RINGER'S 1,000 ML IV SCH; -LIDOCAINE 1% W/EPINEPHRINE 20 ML VIAL ONE; -LIDOCAINE HCL (LTA) 4 ML SOLN ONE; -LIDOCAINE HCL 2% JELLY 5 ML TUBE ONE; -LIDOCAINE HCL 2% LOCAL INJ 5 ML SDV VIAL INJ ONE; -MAGNESIUM/ALUMINUM/SIMETHICONE 30 ML UDC PO PRN; -METOPROLOL TARTRATE 50 MG TAB PO SCH; -MIDAZOLAM HCL 2 MG/2 ML VIAL ONE; -MORPHINE SULFATE 5 MG/ML VIAL IM PRN; -ONDANSETRON HCL INJ 2MG/ML 2ML 2 MG/ML VIAL IV PRN; -ONDANSETRON HCL INJ 2MG/ML 2ML 2 MG/ML VIAL ONE; -OXYBUTYNIN CHLORIDE XL 5 MG TAB PO SCH; -OXYCODONE/ACETAMINOPHEN 5-325 1 EACH TABLET PO PRN; -PROMETHAZINE HCL (IM) 25 MG/ML VIAL IM PRN; -PROPOFOL IV EMULSION 10 MG/ML 20 ML VIAL ONE; -ROCURONIUM BROMIDE 10 MG/ML 5ML VIAL IV ONE; -SEVOFLURANE INHAL SOLN 250 ML PEN BTL ONE; -SUGAMMADEX SODIUM 200 MG/2 ML VIAL IV ONE; -TEMAZEPAM 15 MG CAP PO SCH; -THROMBIN FOR SOLN 5,000 UNIT VIAL ONE; -VANCOMYCIN HCL 1 GM VIAL ONE; -ZOLPIDEM TARTRATE 5 MG TAB PO PRN
[2021-04-12] MEDS ORDERED: HYDROMORPHONE 1MG/1ML INJ IV STA (15:23)
[2021-04-12] MEDS ORDERED: ONDANSETRON HCL INJ 2MG/ML 2ML 2 MG/ML VIAL IV STA (15:23)
[2021-04-12] MEDS ORDERED: SODIUM CHLORIDE 0.9% 1000ML 1,000 ML IV STA (15:23)
[2021-04-12] MEDS ORDERED: METHYLPREDNISOLONE SOD SUCC 125 MG/2ML VIAL IV STA (15:23)
[2021-04-12] MEDS ORDERED: ONDANSETRON HCL INJ 2MG/ML 2ML 2 MG/ML VIAL IV PRN (15:30)
[2021-04-12] MEDS ORDERED: HYDROMORPHONE 1MG/1ML INJ IV PRN (15:30)
[2021-04-12 16:02] LABS: BASOPHILS % 0.5 % (0.0-1.0); EOSINOPHILS # (AUTO) 0.1 (0.0-0.4); EOSINOPHILS % 0.9 % (0.0-6.0); HEMATOCRIT 44.4 % (38.2-49.6); HEMOGLOBIN 15.2 g/dL (14.0-18.0); LYMPHOCYTES % 23.1 % (18.0-39.1); MEAN CORPUSCULAR HEMOGLOBIN 32.1 pg (28-32); MEAN CORPUSCULAR HGB CONC 34.2 g/dL (31-35); MEAN CORPUSCULAR VOLUME 93.7 fL (81-99); MONOCYTES # (AUTO) 0.6 (0.2-0.8); MONOCYTES % 6.9 % (4.4-11.3); NEUTROPHILS % 68.1 % (38.7-80.0); PLATELET COUNT 268 x10e3/uL (140-360); RED BLOOD COUNT 4.74 x10e6/uL (4.3-5.7); RED CELL DISTRIBUTION WIDTH 12.5 % (11.7-14.4)
[2021-04-12 16:22] LABS: ALBUMIN 3.9 g/dL (3.5-5.0); ALBUMIN/GLOBULIN RATIO 1.2 (0.8-2.0); CREATININE, SERUM 1.34 mg/dL (0.72-1.25)
[2021-04-12] MEDS: MORPHINE SULFATE INJ 4 MG/ML INJ 1ML IV PRN ×2 (17:19→21:40)
[2021-04-12] MEDS ORDERED: MORPHINE SULFATE INJ 2 MG/ML SYR ONE (17:21)
[2021-04-12] MEDS: SODIUM CHLORIDE 0.9% 1000ML 1,000 ML IV SCH ×2 (18:04→20:57)
[2021-04-12] MEDS: PREGABALIN 50 MG CAP PO SCH (21:05)
[2021-04-12 22:00] VITALS: BP 118/75
[2021-04-12 22:25] VITALS: BP 122/65
[2021-04-13] VITALS (8 sets, daily range): BP systolic 106–127; BP diastolic 65–78
[2021-04-13] MEDS ORDERED: METHYLPREDNISOLONE SOD SUCC 125 MG/2ML VIAL ONE (00:12)
[2021-04-13] MEDS ORDERED: MORPHINE SULFATE INJ 4 MG/ML INJ 1ML ONE (00:13)
[2021-04-13] MEDS: METHYLPREDNISOLONE SOD SUCC 125 MG/2ML VIAL IV SCH ×4 (00:17→21:19)
[2021-04-13] MEDS: MORPHINE SULFATE INJ 4 MG/ML INJ 1ML IV PRN ×3 (04:45→21:23)
[2021-04-13] MEDS: SODIUM CHLORIDE 0.9% 1000ML 1,000 ML IV SCH (06:12)
[2021-04-13 06:15] LABS: BASOPHILS % 0.2 % (0.0-1.0); HEMATOCRIT 41.9 % (38.2-49.6); HEMOGLOBIN 14.5 g/dL (14.0-18.0); LYMPHOCYTES # (AUTO) 0.7 (1.0-3.2); LYMPHOCYTES % 5.9 % (18.0-39.1); MEAN CORPUSCULAR HEMOGLOBIN 32.2 pg (28-32); MEAN CORPUSCULAR HGB CONC 34.6 g/dL (31-35); MEAN CORPUSCULAR VOLUME 92.9 fL (81-99); MONOCYTES # (AUTO) 0.1 (0.2-0.8); MONOCYTES % 0.8 % (4.4-11.3); NEUTROPHILS # (AUTO) 10.4 (2.1-6.9); NEUTROPHILS % 92.4 % (38.7-80.0); PLATELET COUNT 248 x10e3/uL (140-360); RED BLOOD COUNT 4.51 x10e6/uL (4.3-5.7); RED CELL DISTRIBUTION WIDTH 12.2 % (11.7-14.4)
[2021-04-13 06:40] LABS: ALANINE AMINOTRANSFERASE 9 IU/L (0-55); ALBUMIN 3.6 g/dL (3.5-5.0); ALBUMIN/GLOBULIN RATIO 1.2 (0.8-2.0); ALKALINE PHOSPHATASE 53 IU/L (40-150); ANION GAP 13.5 mmol/L (8-16); BLOOD UREA NITROGEN 17 mg/dL (7-26); BUN/CREATININE RATIO 14 (6-25); CALCIUM 8.5 mg/dL (8.4-10.2); CARBON DIOXIDE 25 mmol/L (22-29); CHLORIDE 103 mmol/L (98-107); CREATININE, SERUM 1.23 mg/dL (0.72-1.25); EST GLOMERULAR FILTRATION RATE > 60 ML/MIN (60-); GLUCOSE 148 mg/dL (74-118); POTASSIUM 4.5 mmol/L (3.5-5.1); SODIUM 137 mmol/L (136-145)
[2021-04-13] MEDS: OXYBUTYNIN CHLORIDE XL 5 MG TAB PO SCH ×3 (09:52→21:19)
[2021-04-13] MEDS: DULOXETINE HCL 20 MG DELAYED RELEASE PO SCH (09:52)
[2021-04-13] MEDS: METOPROLOL TARTRATE 50 MG TAB PO SCH ×2 (09:53→17:00)
[2021-04-13] MEDS: PREGABALIN 50 MG CAP PO SCH ×3 (09:53→21:19)
[2021-04-13] MEDS: TEMAZEPAM 15 MG CAP PO SCH (21:19)
[2021-04-14] VITALS (8 sets, daily range): BP systolic 100–117; BP diastolic 64–80
[2021-04-14] MEDS: MORPHINE SULFATE INJ 4 MG/ML INJ 1ML IV PRN ×7 (01:58→23:46)
[2021-04-14] MEDS: SODIUM CHLORIDE 0.9% 1000ML 1,000 ML IV SCH ×3 (03:53→21:54)
[2021-04-14] MEDS: METHYLPREDNISOLONE SOD SUCC 125 MG/2ML VIAL IV SCH ×3 (06:10→21:54)
[2021-04-14] MEDS: OXYBUTYNIN CHLORIDE XL 5 MG TAB PO SCH ×3 (09:10→21:54)
[2021-04-14] MEDS: DULOXETINE HCL 20 MG DELAYED RELEASE PO SCH (09:10)
[2021-04-14] MEDS: PREGABALIN 50 MG CAP PO SCH ×3 (09:11→21:54)
[2021-04-14] MEDS: METOPROLOL TARTRATE 50 MG TAB PO SCH ×2 (09:11→16:31)
[2021-04-14] MEDS ORDERED: MORPHINE SULFATE INJ 4 MG/ML INJ 1ML IV ONE (14:30)
[2021-04-14] MEDS ORDERED: CYCLOBENZAPRINE HCL 10 MG TAB PO PRN (15:15)
[2021-04-14] MEDS: CYCLOBENZAPRINE HCL 10 MG TAB PO SCH ×2 (15:22→16:31)
[2021-04-14] MEDS: TEMAZEPAM 15 MG CAP PO SCH (21:54)
[2021-04-15] VITALS (8 sets, daily range): BP systolic 115–127; BP diastolic 68–73
[2021-04-15] MEDS: MORPHINE SULFATE INJ 4 MG/ML INJ 1ML IV PRN ×4 (05:40→14:33)
[2021-04-15] MEDS: METHYLPREDNISOLONE SOD SUCC 125 MG/2ML VIAL IV SCH ×2 (06:13→14:32)
[2021-04-15] MEDS: SODIUM CHLORIDE 0.9% 1000ML 1,000 ML IV SCH ×2 (06:13→14:40)
[2021-04-15] MEDS: PREGABALIN 50 MG CAP PO SCH ×3 (09:25→21:48)
[2021-04-15] MEDS: DULOXETINE HCL 20 MG DELAYED RELEASE PO SCH (09:25)
[2021-04-15] MEDS: OXYBUTYNIN CHLORIDE XL 5 MG TAB PO SCH ×3 (09:25→21:48)
[2021-04-15] MEDS: CYCLOBENZAPRINE HCL 10 MG TAB PO SCH ×2 (09:25→17:51)
[2021-04-15] MEDS: METOPROLOL TARTRATE 50 MG TAB PO SCH ×2 (09:32→17:51)
[2021-04-15] MEDS ORDERED: MORPHINE SULFATE INJ 4 MG/ML INJ 1ML IV ONE (12:00)
[2021-04-15] MEDS ORDERED: GADOBENATE DIMEGLUMINE 1 ML IV ONE (12:40)
[2021-04-15] MEDS: POLYETHYLENE GLYCOL 3350 17 GM PACK PO SCH (14:33)
[2021-04-15] MEDS: DOCUSATE SODIUM 100 MG CAP PO SCH (17:51)
[2021-04-15] MEDS: MORPHINE SULFATE INJ 4 MG/ML INJ 1ML IM PRN ×2 (18:43→23:08)
[2021-04-15] MEDS: TEMAZEPAM 15 MG CAP PO SCH (21:48)
[2021-04-16 01:15] VITALS: BP 116/72
[2021-04-16 06:15] VITALS: BP 134/102
[2021-04-16] MEDS: MORPHINE SULFATE INJ 4 MG/ML INJ 1ML IM PRN (06:24)
[2021-04-16 08:30] VITALS: BP 116/70
[2021-04-16] MEDS: DOCUSATE SODIUM 100 MG CAP PO SCH (08:34)
[2021-04-16] MEDS: DULOXETINE HCL 20 MG DELAYED RELEASE PO SCH (08:34)
[2021-04-16] MEDS: CYCLOBENZAPRINE HCL 10 MG TAB PO SCH (08:35)
[2021-04-16] MEDS: METOPROLOL TARTRATE 50 MG TAB PO SCH (08:35)
[2021-04-16] MEDS: OXYBUTYNIN CHLORIDE XL 5 MG TAB PO SCH (08:35)
[2021-04-16] MEDS: PREGABALIN 50 MG CAP PO SCH (08:36)
[2021-04-16] MEDS: POLYETHYLENE GLYCOL 3350 17 GM PACK PO SCH (08:36)
== END 2021-04-16 08:46 | disposition home or self-care (01) | DRG 552 ==
LOC: ER 14:45 → ERHOLD 16:37 → MED/SURG2 22:21
PROVIDERS: ADMIT Internal Medicine; ATTEND Internal Medicine
DX: M51.16 Intervertebral disc disorders with radiculopathy, lumbar region (principal); Z74.09 Other reduced mobility; R20.2 Paresthesia of skin; Z20.822 Contact with and (suspected) exposure to COVID-19; G47.419 Narcolepsy without cataplexy; I12.9 Hypertensive chronic kidney disease with stage 1 through stage 4 chronic kidney disease, or unspecified chronic kidney disease; N18.30 Chronic kidney disease, stage 3 unspecified; F41.9 Anxiety disorder, unspecified; I10 Essential (primary) hypertension
CPT/HCPCS: 36415; 72158; 80053; 85025; 96361; 99284; J1170; J2270; J2405; J2930; J7030; U0002

== ENCOUNTER → 2021-09-23 | Outpatient (CLI) | payer MEDICARE, OTHER | LOC: RAD 09:19 | PROVIDERS: ATTEND Urology | DX: N20.0 Calculus of kidney (principal) | CPT/HCPCS: 74018 ==

== ENCOUNTER → 2021-10-10 | Outpatient (CLI) | payer MEDICARE, OTHER | LOC: MRI 09:33 | PROVIDERS: ATTEND Neurological Surgery | DX: M47.896 Other spondylosis, lumbar region (principal) | CPT/HCPCS: 72148 ==

== ENCOUNTER → 2021-11-14 | Day surgery (SDC) | payer MEDICARE, OTHER ==
[~2021-11-14] MED LIST changes: +DIAZEPAM10 MG PO; +FENTANYL CITRATE/PF 100MCG/2 ML INJ ONE; +GLUCAGON FOR INJ 1 MG VIAL ONE; +HYOSCYAMINE SULFATE 0.5 MG/ML INJ ONE; +LIDOCAINE HCL 2% LOCAL INJ 5 ML SDV VIAL INJ ONE; +MIDAZOLAM HCL 2 MG/2 ML VIAL ONE; +PROPOFOL IV EMULSION 10 MG/ML 20 ML VIAL ONE; +PROTONIX20 MG PO
[2021-11-14 11:28] LABS: BASOPHILS % 0.4 % (0.0-1.0); EOSINOPHILS % 0.3 % (0.0-6.0); HEMATOCRIT 47.1 % (38.2-49.6); HEMOGLOBIN 16.3 g/dL (14.0-18.0); LYMPHOCYTES # (AUTO) 1.8 (1.0-3.2); MEAN CORPUSCULAR HEMOGLOBIN 32.6 pg (28-32); MEAN CORPUSCULAR HGB CONC 34.6 g/dL (31-35); MEAN CORPUSCULAR VOLUME 94.2 fL (81-99); MONOCYTES # (AUTO) 0.7 (0.2-0.8); MONOCYTES % 7.3 % (4.4-11.3); NEUTROPHILS # (AUTO) 6.9 (2.1-6.9); NEUTROPHILS % 72.7 % (38.7-80.0); PLATELET COUNT 288 x10e3/uL (140-360); RED CELL DISTRIBUTION WIDTH 12.4 % (11.7-14.4)
[2021-11-14 11:48] LABS: ALBUMIN 3.7 g/dL (3.5-5.0); ALBUMIN/GLOBULIN RATIO 1.3 (0.8-2.0); CALCIUM 9.1 mg/dL (8.4-10.2); CREATININE, SERUM 1.18 mg/dL (0.72-1.25)
[2021-11-14 13:50] VITALS: BP 113/83
== END | disposition home or self-care (01) ==
LOC: OR 10:04
PROVIDERS: ATTEND Internal Medicine Gastroenterology
DX: R13.10 Dysphagia, unspecified (principal); D3A.012 Benign carcinoid tumor of the ileum; K29.70 Gastritis, unspecified, without bleeding; K22.89 Other specified disease of esophagus; K58.9 Irritable bowel syndrome, unspecified; K44.9 Diaphragmatic hernia without obstruction or gangrene; K64.8 Other hemorrhoids; G47.33 Obstructive sleep apnea (adult) (pediatric); G47.411 Narcolepsy with cataplexy; I12.9 Hypertensive chronic kidney disease with stage 1 through stage 4 chronic kidney disease, or unspecified chronic kidney disease; N18.9 Chronic kidney disease, unspecified; G90.1 Familial dysautonomia [Riley-Day]; M06.9 Rheumatoid arthritis, unspecified; N20.0 Calculus of kidney; F41.9 Anxiety disorder, unspecified; F17.210 Nicotine dependence, cigarettes, uncomplicated; Z71.6 Tobacco abuse counseling; Z88.8 Allergy status to other drugs, medicaments and biological substances; Z01.810 Encounter for preprocedural cardiovascular examination; Z01.812 Encounter for preprocedural laboratory examination; Z20.822 Contact with and (suspected) exposure to COVID-19; Z79.899 Other long term (current) drug therapy
CPT/HCPCS: 36415; 43239; 43450; 45380; 80053; 85025; 93005; J1610; J1980; J2001; J2250; J2704; J3010; U0002; 45378

== ENCOUNTER 2021-11-15 10:07 | Inpatient (IN) | payer MEDICARE ==
[~2021-11-15] VITALS: Ht 175.3 cm; Wt 69.9 kg
[~2021-11-15 10:07] MED LIST changes: -DIAZEPAM10 MG PO; -FENTANYL CITRATE/PF 100MCG/2 ML INJ ONE; -GLUCAGON FOR INJ 1 MG VIAL ONE; -HYOSCYAMINE SULFATE 0.5 MG/ML INJ ONE; -LIDOCAINE HCL 2% LOCAL INJ 5 ML SDV VIAL INJ ONE; -MIDAZOLAM HCL 2 MG/2 ML VIAL ONE; -PROPOFOL IV EMULSION 10 MG/ML 20 ML VIAL ONE
[2021-11-15] MEDS ORDERED: PROPOFOL IV EMULSION 10 MG/ML 20 ML VIAL ONE (12:18)
[2021-11-15] MEDS ORDERED: POVIDONE IODINE 0.05% 0.05 % ML PO ONE (12:18)
[2021-11-15] MEDS ORDERED: EPHEDRINE SULFATE INJ 50 MG/ML VIAL ONE (12:18)
[2021-11-15] MEDS ORDERED: NEOSTIGMINE 1 MG/ML 10ML VIAL ONE (12:18)
[2021-11-15] MEDS ORDERED: SEVOFLURANE INHAL SOLN 250 ML PEN BTL ONE (12:18)
[2021-11-15] MEDS ORDERED: DEXAMETHASONE SOD PHOS INJ 4 MG/ML SDV ONE (12:18)
[2021-11-15] MEDS ORDERED: GLYCOPYRROLATE INJ 0.2 MG/ML VIAL ONE (12:18)
[2021-11-15] MEDS ORDERED: KETOROLAC TROMETHAMINE 30 MG/ML VIAL ONE (12:18)
[2021-11-15] MEDS ORDERED: LIDOCAINE HCL 2% LOCAL INJ 5 ML SDV VIAL INJ ONE (12:18)
[2021-11-15] MEDS ORDERED: ROCURONIUM BROMIDE 10 MG/ML 5ML VIAL IV ONE (12:18)
[2021-11-15] MEDS ORDERED: ONDANSETRON HCL INJ 2MG/ML 2ML 2 MG/ML VIAL ONE (12:18)
[2021-11-15] MEDS ORDERED: BUPIVACAINE 0.25% 30ML SDV ONE (12:28)
[2021-11-15] MEDS ORDERED: BUPIVACAINE LIPOSOME/PF 266 MG/20 ML IJ ONE (12:29)
[2021-11-15] MEDS ORDERED: FENTANYL CITRATE/PF 100MCG/2 ML INJ ONE (13:10)
[2021-11-15] MEDS ORDERED: MIDAZOLAM HCL 2 MG/2 ML VIAL ONE (13:10)
[2021-11-15] MEDS ORDERED: ACETAMINOPHEN 1000 MG/100 ML 100 ML IV ONE (13:47)
[2021-11-15] MEDS ORDERED: HYDROMORPHONE 1MG/1ML INJ ONE (14:07)
[2021-11-15] MEDS ORDERED: ONDANSETRON HCL INJ 2MG/ML 2ML 2 MG/ML VIAL IV PRN (14:45)
[2021-11-15] MEDS ORDERED: KETOROLAC TROMETHAMINE 30 MG/ML VIAL IV PRN (14:45)
[2021-11-15] MEDS ORDERED: NALOXONE HCL INJ 0.4 MG/ML AMP IV PRN (14:45)
[2021-11-15] MEDS: SODIUM CHLORIDE 0.9% 250ML IRRIG IR SCH ×3 (14:45→21:37)
[2021-11-15 15:58] VITALS: BP 124/91
[2021-11-15] MEDS ORDERED: METOPROLOL TARTRATE 50 MG TAB PO SCH (17:00)
[2021-11-15 17:28] VITALS: BP 124/91
[2021-11-15] MEDS: SODIUM CHLORIDE 0.9% 1000ML 1,000 ML IV SCH (17:32)
[2021-11-15] MEDS: Cefoxitin 1 GM in SODIUM CHLORIDE 0.9% 50ML 50 ML IV SCH (17:33)
[2021-11-15] MEDS ORDERED: METOPROLOL TARTRATE 50 MG TAB NG ONE (20:45)
[2021-11-15 20:56] VITALS: BP 121/75
[2021-11-15 21:00] VITALS: BP 121/75
[2021-11-15] MEDS: HYDROMORPHONE 0.2MG/ML-SOD CHL 30ML PCA SYRINGE IV PRN (22:54)
[2021-11-16] VITALS (8 sets, daily range): BP systolic 99–137; BP diastolic 71–94
[2021-11-16] MEDS: Cefoxitin 1 GM in SODIUM CHLORIDE 0.9% 50ML 50 ML IV SCH ×2
[2021-11-16] MEDS: SODIUM CHLORIDE 0.9% 250ML IRRIG IR SCH ×5 (03:00→18:30)
[2021-11-16] MEDS: SODIUM CHLORIDE 0.9% 1000ML 1,000 ML IV SCH ×3 (03:00→21:13)
[2021-11-16 06:04] LABS: BASOPHILS % 0.1 % (0.0-1.0); HEMATOCRIT 44.7 % (38.2-49.6); HEMOGLOBIN 14.6 g/dL (14.0-18.0); LYMPHOCYTES # (AUTO) 0.6 (1.0-3.2); LYMPHOCYTES % 4.3 % (18.0-39.1); MEAN CORPUSCULAR HEMOGLOBIN 32.2 pg (28-32); MEAN CORPUSCULAR HGB CONC 32.7 g/dL (31-35); MEAN CORPUSCULAR VOLUME 98.7 fL (81-99); MONOCYTES # (AUTO) 1.3 (0.2-0.8); MONOCYTES % 10.1 % (4.4-11.3); NEUTROPHILS # (AUTO) 11.4 (2.1-6.9); NEUTROPHILS % 85.2 % (38.7-80.0); PLATELET COUNT 265 x10e3/uL (140-360); RED BLOOD COUNT 4.53 x10e6/uL (4.3-5.7); RED CELL DISTRIBUTION WIDTH 12.5 % (11.7-14.4)
[2021-11-16 06:26] LABS: ANION GAP 8.5 mmol/L (8-16); CALCIUM 8.6 mg/dL (8.4-10.2); CREATININE, SERUM 1.1 mg/dL (0.72-1.25)
[2021-11-16 06:40] LABS: POTASSIUM 5.5 mmol/L (3.5-5.1)
[2021-11-16] MEDS: HYDROMORPHONE 0.2MG/ML-SOD CHL 30ML PCA SYRINGE IV PRN ×3 (08:08→17:50)
[2021-11-16] MEDS: METOPROLOL TARTRATE 50 MG TAB NG SCH ×3 (09:32→10:21)
[2021-11-16 09:52] LABS: CALCIUM 8.4 mg/dL (8.4-10.2); CREATININE, SERUM 1.08 mg/dL (0.72-1.25)
[2021-11-16] MEDS ORDERED: DIAZEPAM10 MG PO (11:27)
[2021-11-16] MEDS ORDERED: LYRICA100 MG PO (11:27)
[2021-11-16] MEDS ORDERED: LORAZEPAM INJ 2 MG/ML VIAL IV PRN (12:00)
[2021-11-16] MEDS ORDERED: METOPROLOL TARTRATE 50 MG TAB NG SCH (21:00)
[2021-11-16] MEDS: CITALOPRAM HYDROBROMIDE 20 MG TAB PO SCH (21:08)
[2021-11-16] MEDS: METOPROLOL TARTRATE 50 MG TAB PO SCH (21:09)
[2021-11-17] VITALS (8 sets, daily range): BP systolic 112–133; BP diastolic 71–79
[2021-11-17] MEDS: SODIUM CHLORIDE 0.9% 1000ML 1,000 ML IV SCH ×2 (07:16→16:50)
[2021-11-17] MEDS: HYDROMORPHONE 0.2MG/ML-SOD CHL 30ML PCA SYRINGE IV PRN (07:17)
[2021-11-17 07:45] LABS: BASOPHILS % 0.3 % (0.0-1.0); EOSINOPHILS # (AUTO) 0.1 (0.0-0.4); EOSINOPHILS % 1.1 % (0.0-6.0); HEMATOCRIT 39.4 % (38.2-49.6); HEMOGLOBIN 12.8 g/dL (14.0-18.0); LYMPHOCYTES # (AUTO) 1.1 (1.0-3.2); LYMPHOCYTES % 11.6 % (18.0-39.1); MEAN CORPUSCULAR HEMOGLOBIN 32.2 pg (28-32); MEAN CORPUSCULAR HGB CONC 32.5 g/dL (31-35); MEAN CORPUSCULAR VOLUME 99.2 fL (81-99); MONOCYTES % 10.5 % (4.4-11.3); NEUTROPHILS # (AUTO) 7.3 (2.1-6.9); NEUTROPHILS % 75.8 % (38.7-80.0); PLATELET COUNT 202 x10e3/uL (140-360); RED BLOOD COUNT 3.97 x10e6/uL (4.3-5.7); RED CELL DISTRIBUTION WIDTH 12.3 % (11.7-14.4)
[2021-11-17 08:07] LABS: ANION GAP 10.6 mmol/L (8-16); CREATININE, SERUM 0.83 mg/dL (0.72-1.25); POTASSIUM 3.6 mmol/L (3.5-5.1)
[2021-11-17] MEDS: DULOXETINE HCL 20 MG DELAYED RELEASE PO SCH (09:40)
[2021-11-17] MEDS: METOPROLOL TARTRATE 50 MG TAB PO SCH ×2 (09:41→21:16)
[2021-11-17] MEDS ORDERED: HYDROMORPHONE 1MG/1ML INJ IV PRN (12:00)
[2021-11-17] MEDS ORDERED: BISACODYL 10 MG SUPP PR ONE (12:30)
[2021-11-17] MEDS: CITALOPRAM HYDROBROMIDE 20 MG TAB PO SCH (21:14)
[2021-11-18] VITALS (8 sets, daily range): BP systolic 100–139; BP diastolic 62–88
[2021-11-18] MEDS: SODIUM CHLORIDE 0.9% 1000ML 1,000 ML IV SCH ×2 (03:11→17:24)
[2021-11-18] MEDS: DULOXETINE HCL 20 MG DELAYED RELEASE PO SCH (09:28)
[2021-11-18] MEDS: METOPROLOL TARTRATE 50 MG TAB PO SCH ×2 (09:28→20:57)
[2021-11-18 09:48] LABS: BASOPHILS % 0.3 % (0.0-1.0); EOSINOPHILS # (AUTO) 0.1 (0.0-0.4); HEMATOCRIT 36.9 % (38.2-49.6); HEMOGLOBIN 12.7 g/dL (14.0-18.0); LYMPHOCYTES # (AUTO) 1.1 (1.0-3.2); LYMPHOCYTES % 15.8 % (18.0-39.1); MEAN CORPUSCULAR HEMOGLOBIN 32.4 pg (28-32); MEAN CORPUSCULAR HGB CONC 34.4 g/dL (31-35); MEAN CORPUSCULAR VOLUME 94.1 fL (81-99); MONOCYTES # (AUTO) 0.6 (0.2-0.8); MONOCYTES % 7.8 % (4.4-11.3); NEUTROPHILS # (AUTO) 5.2 (2.1-6.9); NEUTROPHILS % 73.7 % (38.7-80.0); PLATELET COUNT 193 x10e3/uL (140-360); RED BLOOD COUNT 3.92 x10e6/uL (4.3-5.7); RED CELL DISTRIBUTION WIDTH 12.1 % (11.7-14.4)
[2021-11-18 10:06] LABS: ANION GAP 12.4 mmol/L (8-16); CALCIUM 8.4 mg/dL (8.4-10.2); CREATININE, SERUM 0.84 mg/dL (0.72-1.25); POTASSIUM 3.4 mmol/L (3.5-5.1)
[2021-11-18] MEDS ORDERED: BISACODYL 10 MG SUPP PR ONE (11:00)
[2021-11-18] MEDS: HYDROCODONE/APAP 7.5MG-325MG 1 EA TAB PO PRN (20:54)
[2021-11-18] MEDS: CITALOPRAM HYDROBROMIDE 20 MG TAB PO SCH (20:57)
[2021-11-19] VITALS (8 sets, daily range): BP systolic 121–137; BP diastolic 76–95
[2021-11-19] MEDS: SODIUM CHLORIDE 0.9% 1000ML 1,000 ML IV SCH (04:41)
[2021-11-19] MEDS: HYDROCODONE/APAP 7.5MG-325MG 1 EA TAB PO PRN ×3 (04:53→21:06)
[2021-11-19] MEDS: METOPROLOL TARTRATE 50 MG TAB PO SCH ×2 (08:50→21:06)
[2021-11-19] MEDS: DULOXETINE HCL 20 MG DELAYED RELEASE PO SCH (08:50)
[2021-11-19] MEDS: CITALOPRAM HYDROBROMIDE 20 MG TAB PO SCH (21:05)
[2021-11-20] MEDS: HYDROCODONE/APAP 7.5MG-325MG 1 EA TAB PO PRN ×3 (01:15→15:02)
[2021-11-20 06:24] VITALS: BP 124/85
[2021-11-20 08:23] VITALS: BP 127/87
[2021-11-20 08:56] VITALS: BP 127/87
[2021-11-20] MEDS: METOPROLOL TARTRATE 50 MG TAB PO SCH (10:06)
[2021-11-20] MEDS: DULOXETINE HCL 20 MG DELAYED RELEASE PO SCH (10:07)
[2021-11-20 12:00] VITALS: BP 113/75
[2021-11-20] MEDS ORDERED: ONDANSETRON HCL 4 MG ORAL DISINTEGRATING TAB PO PRN (15:30)
[2021-11-20] MEDS ORDERED: PANTOPRAZOLE SOD 40 MG TABEC PO SCH (16:30)
== END 2021-11-20 15:39 | disposition home or self-care (01) | DRG 330 ==
LOC: OR 10:07 → PACU V 14:44 → MED/SURG 15:42
PROVIDERS: ADMIT Surgery; ATTEND Surgery
PROC: 0DTH0ZZ Resection of Cecum, Open Approach (ICD-10-PCS; 2021-11-15)
PROC: 0DTB0ZZ Resection of Ileum, Open Approach (ICD-10-PCS; principal; 2021-11-15 12:00)
DX: C7A.012 Malignant carcinoid tumor of the ileum (principal); C77.2 Secondary and unspecified malignant neoplasm of intra-abdominal lymph nodes; I10 Essential (primary) hypertension
CPT/HCPCS: 36415; 80048; 85025; 88305; 88309; 88342; 94799; J0694; J1100; J1170; J1885; J2001; J2060; J2250; J2405; J2710; J3010; J7030

== ENCOUNTER → 2022-02-20 | Outpatient (CLI) | payer MEDICARE ==
[~2022-02-20] MED LIST changes: +DIATRIZOATE MEGL/DIATRIZOA SOD 30 ML BTL PO ONE; +DIAZEPAM10 MG PO; +IOPAMIDOL 370 MG/ML 100 ML INFUS..BTL INJ ONE
[2022-02-20 08:47] LABS: CREATININE, SERUM 1.09 mg/dL (0.72-1.25)
== END ==
LOC: CT 07:36
PROVIDERS: ATTEND Internal Medicine Hematology & Oncology
DX: G47.411 Narcolepsy with cataplexy (principal); C7A.8 Other malignant neuroendocrine tumors; R19.7 Diarrhea, unspecified; K59.00 Constipation, unspecified; F17.200 Nicotine dependence, unspecified, uncomplicated; Z71.6 Tobacco abuse counseling
CPT/HCPCS: 36415; 74177; 82565; 84520; Q9967

== ENCOUNTER 2022-05-07 10:32 | Emergency (ER) | payer MEDICARE ==
[~2022-05-07] VITALS: Ht 175.3 cm; Wt 69.9 kg
[~2022-05-07 10:32] MED LIST changes: -DIATRIZOATE MEGL/DIATRIZOA SOD 30 ML BTL PO ONE; -IOPAMIDOL 370 MG/ML 100 ML INFUS..BTL INJ ONE
[2022-05-07] MEDS ORDERED: HYDROMORPHONE 1MG/1ML INJ IM STA (11:32)
[2022-05-07] MEDS ORDERED: METHOCARBAMOL750 MG PO (11:43)
[2022-05-07] MEDS ORDERED: DEXAMETHASONE SOD PHOS 10 MG/1 ML VIAL IM ONE (11:45)
[2022-05-07] MEDS ORDERED: ZANAFLEX4 MG PO (11:54)
== END 2022-05-07 12:59 | disposition home or self-care (01) ==
LOC: ER 10:46
DX: M54.42 Lumbago with sciatica, left side (principal); G47.33 Obstructive sleep apnea (adult) (pediatric); Z87.442 Personal history of urinary calculi
CPT/HCPCS: 99282; J1100; J1170

== ENCOUNTER 2022-07-15 12:53 | Outpatient (RCR) | payer MEDICARE ==
[~2022-07-15 12:53] MED LIST changes: +METHOCARBAMOL750 MG PO; +ZANAFLEX4 MG PO
== END 2022-08-01 ==
LOC: PT 12:53
PROVIDERS: ATTEND Psychiatry & Neurology Clinical Neurophysiology
DX: H81.13 Benign paroxysmal vertigo, bilateral (principal)

== ENCOUNTER → 2022-11-24 | Outpatient (CLI) | payer MEDICARE | LOC: RAD 08:32 | PROVIDERS: ATTEND Urology | DX: N20.0 Calculus of kidney (principal) | CPT/HCPCS: 74018 ==

== ENCOUNTER 2025-05-06 17:39 | Emergency (ER) | payer MEDICARE ==
[~2025-05-06] VITALS: Ht 175.3 cm; Wt 72.6 kg
[2025-05-06 18:00] VITALS: TEMP 98.2
[2025-05-06 19:12] LABS: BASOPHILS % 0.5 % (0.0-1.0); EOSINOPHILS % 1.6 % (0.0-6.0); LYMPHOCYTES % 20.3 % (18.0-39.1); MONOCYTES % 7.6 % (4.4-11.3); NEUTROPHILS % 69.8 % (38.7-80.0); RED CELL DISTRIBUTION WIDTH 11.9 % (11.7-14.4)
[2025-05-06 19:33] LABS: EST GLOMERULAR FILTRATION RATE 83.0 ML/MIN (>=60)
[2025-05-06] MEDS: KETOROLAC TROMETHAMINE 30 MG/ML VIAL IV STA (19:59)
[2025-05-06] MEDS: METHOCARBAMOL 750 MG TAB PO ONE (20:00)
[2025-05-06] MEDS: TRAMADOL HCL 50 MG TAB PO ONE (20:00)
[2025-05-06] MEDS ORDERED: METHOCARBAMOL750 MG PO (21:09)
[2025-05-06 21:19] VITALS: PULSE 57; RESP 18; O2SAT 100
== END 2025-05-06 21:24 | disposition home or self-care (01) ==
LOC: ER 18:13
DX: M54.50 Low back pain, unspecified (principal); G89.29 Other chronic pain; G47.33 Obstructive sleep apnea (adult) (pediatric); Z87.19 Personal history of other diseases of the digestive system; Z87.442 Personal history of urinary calculi
CPT/HCPCS: 36415; 80048; 85025; 99283; J1885